=== PATIENT | male | born 1975 | race Caucasian/White ===

== ENCOUNTER 2023-05-13 06:57 | Outpatient (OUT) | payer OTHER, SELFPAY ==
--- NOTE | 2023-05-13 07:30 | NM_ITS ---
Patient: GEO CAPPS Exam Date: 05/13/2023 : 1975 Gender:M Ordering : DR Augustin Coronado . Admission #: [id number] Family : Order #: [id number] CLICK HERE TO VIEW EXAM RADIOLOGY REPORT PROCEDURE: NM KAILEE PERF SPECT REST STR COMPARISON: None. INDICATIONS: Chest pain TECHNIQUE: Exam Description: Stress Only two day protocol gated SPECT Rest Imagin.1 mCi Tc-99m Cardiolite IV on 05/17/2023 Stress Imaging 24.9 mCi Tc-99m Cardiolite IV on 05/13/2023 Exercise Protocol: 0.4 mg Lexiscan given IV Heart Rate (bpm): Rest: 58 Max: 122 PMHR: 70 Blood Pressure: Rest: 158/86 Max: 180/92 Symptoms: Rest and peak stress ECG findings were abnormal and the exercise portion of the study was abnormal per attending physician Dr. Armando . For more details please see separate cardiac stress test report. FINDINGS: QUALITY OF STUDY: Good. PERFUSION DEFECT: LOCATION: Mid-anterior. Apical anterior. [place]. SIZE: Medium (3-4 segments). SEVERITY: Severe. TYPE: Reversible. WALL MOTION: Normal. LV SIZE: Enlarged; EDV 190 mL. TID / TCD: None; 1.1 LVEF: Abnormal. Calculated EF 54%. SUMMARY: Myocardial perfusion imaging study has ABNORMAL findings. CONCLUSION: 1. Area of suspected reversible ischemia anterior wall/apex. LAD distribution 2. Dilated left ventricle 3. Low left ventricular ejection fraction of 54% 4. Abnormal exercise test 5. Follow up recommended Dictated by: Joe Huertas MD on 05/17/2023 at 12:36 Approved by: Joe Huertas MD on 05/17/2023 at 13:06
[2023-05-13] MEDS: REGADENOSON 0.4 MG/5 ML SYRINGE IV (08:17)
--- NOTE | 2023-05-13 13:56 | PM.STRESS ---
Stress Test Stress Test Allergies Allergy/AdvReac Type Severity Reaction Status Date / Time No Known Drug Allergies Allergy Verified 05/13/23 08:08 Requesting physician: Augustin Coronado Procedure: Lexiscan Cardiolite stress test General Information: Reason for Stress Test: Chest pain Cardiac History and Risk Factors: Hypertension, mother had unspecified congenital cardiovascular disease Resting 12 - Lead Electrocardiogram: Sinus bradycardia with rate 58. Normal axis. ST segment downsloping in III and aVF. Stress Test: Protocol: Initially began as exercise, but d/t patient fatigue and chest pain after 3 minutes on the treadmill, she voiced she could not proceed further, and was converted to Lexiscan protocol Blood Pressure Response: Resting 158/86, max 180/92 Rhythm: Max rate 122 which is 70 max [address] heart rate[address] - Response: During the resting period between the exercise and Lexiscan portions, there was new ST segment downsloping in II, and 0.5-1mm ST segment depression in V4-6. ST segment depression progressed to 2mm in V5 after Lexiscan. Patient Response: Chest pain and throat pain during exercise, relieved with rest. She additionally complained of chest pain 1 minute after Lexiscan injection. Interpretation: This is an abnormal stress test based on ST segment downsloping and depression (up to 2mm in V5) accompanied by chest pain during these periods. Cardiolite interpretation will be reported separately. Clinical correlation required.
== END 2023-05-13 06:58 ==
LOC: CARD 07:05
PROVIDERS: PCP Family Medicine; Visit Provider Family Medicine
DX: I10 Essential (primary) hypertension (principal); R07.9 Chest pain, unspecified; R94.39 Abnormal result of other cardiovascular function study
CPT/HCPCS: 78452; 93017; A9500; J2785

== ENCOUNTER 2023-05-14 08:57 | Outpatient (OUT) | payer OTHER, SELFPAY ==
--- NOTE | 2023-05-14 09:00 | CA_ITS ---
Patient: GEO CAPPS Exam Date: 05/14/2023 : 1975 Gender:M Ordering : DR Augustin Coronado . Admission #: [id number] Family : Order #: [id number] CLICK HERE TO VIEW EXAM ECHOCARDIOGRAM REPORT PROCEDURE: CA ECHO DOPPLER COMPLETE INDICATIONS: Chest pain, hypertension COMPARISON: None. DESCRIPTION: COMPLETE ECHOCARDIOGRAM Real-time transthoracic echocardiography with 2D, M-mode, spectral and color flow Doppler performed. QUALITY: Technical quality was good. LEFT VENTRICLE: Normal chamber size. Moderate concentric left ventricular hypertrophy. LV EF: Global left ventricular systolic function is difficult to assess but appears preserved; visually estimated ejection fraction is 55 to 60%. Unable to assess regional wall motion abnormalities. DIASTOLIC: Normal diastolic function. ATRIAL SEPTUM: Inadequately seen. LEFT ATRIUM: Mild dilatation. RIGHT ATRIUM: Mild dilatation. RIGHT VENTRICLE: Normal chamber size. Normal right ventricular systolic function. TRICUSPID VALVE: Normal mobility and thickness. No stenosis with no regurgitation. MITRAL VALVE: Normal mobility and thickness. No evidence of mitral valve stenosis. There is no mitral annular calcification. No mitral regurgitation. AORTIC VALVE: Normal trileaflet appearance. No visible sclerosis. Normal leaflet mobility. No evidence of aortic valve stenosis. No aortic regurgitation. AORTIC ROOT: Normal diameter and appearance. PULMONIC VALVE: Normal thickness and mobility. No stenosis. No regurgitation. PERICARDIUM: Anterior free space; trivial effusion versus fat pad. IVC: Collapses with inspirations. CONCLUSION: Global left ventricular systolic function is difficult to assess but appears preserved; visually estimated ejection fraction is 55 to 60%. Moderately increased left ventricular wall thickness. Biatrial enlargement. The right ventricle is normal in size and systolic function. Valves are poorly seen; no significant valve abnormalities. Anterior free space; trivial effusion versus fat pad. Adult Echocardiography Procedure Report Left Ventricle LVEDD (3.7 - 5.6 cm): 5.15 cm LVESD (2.2 - 4.0 cm): 3.67 cm LVIVS thickness (0.6 - 1.2 cm): 1.36 cm LVPW thickness (0.5 - 1.0 cm): 1.37 cm e': 0.14 m/s E - e': 7.60 LVOT Max Gradient: 4.28 mm[Hg], 6.80 mm[Hg] LVOT Area (cm2): 1.30 m/s, 1.03 m/s Peak Velocity (LVOT): 1.30 m/s, 1.03 m/s Mean Velocity (LVOT): 0.90 m/s LVOT Diameter 2.04 cm Left Atrium LA Volume Index (2D A2C): 34.39 ml/m2 Left Atrium Systolic Dimension: 4.01 cm Mitral Valve MV E to A Ratio: 1.33 Mitral Valve A-Wave Peak Velocity: 0.78 m/s Mitral Valve E-Wave Peak Velocity: 1.03 m/s Right Ventricle Aorta AO Root Diam: 3.18 cm Aortic Valve AoV Area (Peak Judd): 2.32 cm2, 2.32 cm2, 1.84 cm2, 1.84 cm2, 1.81 cm2, 1.81 cm2, 2.28 cm2, 2.28 cm2 AoV Area (VTI): 2.51 cm2, 2.51 cm2 Peak Velocity(Antegrade Flow): 1.84 m/s, 1.87 m/s Peak Gradient(Antegrade Flow): 14.06 mm[Hg], 13.53 mm[Hg] Mean Velocity(Antegrade Flow): 1.28 m/s Mean Gradient(Antegrade Flow): 7.31 mm[Hg] Velocity Time Integral: 40.35 cm Tricuspid Valve Pulmonic Valve Peak Velocity: 0.91 m/s Peak Gradient: 4.13 mm[Hg], 2.52 mm[Hg] Right Atrium Right Atrium Systolic Pressure: 66.81 ml, 66.81 ml Dictated by: Dayanna Guevara M.D. on 05/15/2023 at 16:34 Approved by: Dayanna Guevara M.D. on 05/15/2023 at 16:36
== END 2023-05-14 08:58 ==
LOC: CARD 08:57
PROVIDERS: PCP Family Medicine; Visit Provider Family Medicine
DX: R07.9 Chest pain, unspecified (principal); I10 Essential (primary) hypertension
CPT/HCPCS: 93306

== ENCOUNTER 2023-05-29 07:30 | Outpatient (OUT) | payer OTHER, SELFPAY ==
[2023-05-29 08:04] LABS: Basophils Percent Auto 0.3 % (0.2-2.0); Eosinophils Absolute Auto 0.2 10^3/uL (0.0-0.7); Eosinophils Percent Auto 2.2 % (0.9-7.0); Hematocrit 44.2 % (42.0-54.0); Hemoglobin 14.9 g/dL (14.0-18.0); Immature Granulocytes Abs Auto 0.06 10^3/uL (0.00-0.03); Immature Granulocytes Pct Auto 0.6 % (0.0-0.5); Lymphocytes Absolute Auto 3.4 10^3/uL (1.2-3.8); Mean Corpuscular HGB Conc 33.7 g/dL (29.9-35.2); Mean Corpuscular Volume 91.9 fL (80.0-94.0); Mean Platelet Volume 11.3 fL (9.5-13.5); Monocytes Absolute Auto 0.8 10^3/uL (0.3-0.8); Monocytes Percent Auto 8.1 % (1.7-12.0); Neutrophils Absolute Auto 5.8 10^3/uL (1.4-6.5); Neutrophils Percent Auto 55.8 % (43.0-75.0); Platelet Count 189 10^3/uL (150-450); Red Blood Count 4.81 10^6/uL (4.70-6.10); Red Cell Distribution Width 13.2 % (11.0-15.0); White Blood Count 10.4 10^3/uL (4.0-11.0)
[2023-05-29 09:37] LABS: Anion Gap 6.6; BUN Creatinine Ratio 18.2; Calcium 8.5 mg/dL (8.5-10.1); Carbon Dioxide 30.3 mmol/L (21.0-32.0); Chloride 104 mmol/L (98-107); Estimated GFR (African America >60 (>=60); Estimated GFR (Non-African Ame >60 (>=60); Glucose 113 mg/dL (74-106); Potassium 3.9 mmol/L (3.5-5.1); Sodium 137 mmol/L (136-145)
== END 2023-05-29 07:31 | disposition home or self-care (01) ==
LOC: LAB 07:32
PROVIDERS: PCP Family Medicine; Visit Provider Nurse Practitioner
DX: I20.0 Unstable angina (principal)
CPT/HCPCS: 36415; 80048; 85025

== ENCOUNTER 2023-06-11 07:04 | Outpatient (OUT) | payer OTHER, SELFPAY | END 2023-06-11 07:05 | disposition home or self-care (01) | PROVIDERS: PCP Family Medicine; Visit Provider Family Medicine | DX: G47.33 Obstructive sleep apnea (adult) (pediatric) (principal); I10 Essential (primary) hypertension | CPT/HCPCS: 95806 ==

== ENCOUNTER 2023-06-25 08:03 | Outpatient (OUT) | payer OTHER, SELFPAY ==
[2023-06-25 08:49] LABS: Anion Gap 10.6; BUN Creatinine Ratio 14.7; Calcium 8.6 mg/dL (8.5-10.1); Carbon Dioxide 27.4 mmol/L (21.0-32.0); Chloride 102 mmol/L (98-107); Estimated GFR (African America >60 (>=60); Estimated GFR (Non-African Ame >60 (>=60); Glucose 116 mg/dL (74-106); Sodium 136 mmol/L (136-145)
== END 2023-06-25 08:04 | disposition home or self-care (01) ==
PROVIDERS: PCP Family Medicine; Visit Provider Internal Medicine Cardiovascular Disease
DX: I11.9 Hypertensive heart disease without heart failure (principal)
CPT/HCPCS: 36415; 80048

== ENCOUNTER 2023-07-23 20:48 | Outpatient (OUT) | payer OTHER, SELFPAY | END 2023-07-23 20:49 | disposition home or self-care (01) | LOC: SLEEP 20:54 | PROVIDERS: PCP Family Medicine; Visit Provider Family Medicine | DX: G47.33 Obstructive sleep apnea (adult) (pediatric) (principal) | CPT/HCPCS: 95811 ==

== ENCOUNTER 2023-09-27 08:31 | Outpatient (OUT) | payer OTHER, SELFPAY ==
[2023-09-27 08:58] LABS: Basophils Percent Auto 0.1 % (0.2-2.0); Eosinophils Absolute Auto 0.4 10^3/uL (0.0-0.7); Eosinophils Percent Auto 4.7 % (0.9-7.0); Hematocrit 39.5 % (42.0-54.0); Hemoglobin 13.2 g/dL (14.0-18.0); Immature Granulocytes Abs Auto 0.03 10^3/uL (0.00-0.03); Immature Granulocytes Pct Auto 0.4 % (0.0-0.5); Lymphocytes Absolute Auto 2.7 10^3/uL (1.2-3.8); Lymphocytes Percent Auto 35.5 % (20.5-60.0); Mean Corpuscular HGB Conc 33.4 g/dL (29.9-35.2); Mean Corpuscular Hemoglobin 31.7 pg (25.9-34.0); Mean Platelet Volume 10.4 fL (9.5-13.5); Monocytes Absolute Auto 0.9 10^3/uL (0.3-0.8); Neutrophils Absolute Auto 3.5 10^3/uL (1.4-6.5); Neutrophils Percent Auto 47.3 % (43.0-75.0); Platelet Count 210 10^3/uL (150-450); Red Blood Count 4.16 10^6/uL (4.70-6.10); Red Cell Distribution Width 13.6 % (11.0-15.0); White Blood Count 7.5 10^3/uL (4.0-11.0)
[2023-09-27 10:05] LABS: Anion Gap 12.1; Calcium 8.3 mg/dL (8.5-10.1); Carbon Dioxide 28.3 mmol/L (21.0-32.0); Chloride 104 mmol/L (98-107); Estimated GFR (African America >60 (>=60); Estimated GFR (Non-African Ame >60 (>=60); Glucose 109 mg/dL (74-106); Potassium 4.4 mmol/L (3.5-5.1); Sodium 140 mmol/L (136-145)
== END 2023-09-27 08:32 | disposition home or self-care (01) ==
PROVIDERS: PCP Family Medicine; Visit Provider Nurse Practitioner
DX: I20.0 Unstable angina (principal)
CPT/HCPCS: 36415; 80048; 85025

== ENCOUNTER 2024-03-18 15:38 | Outpatient (OUT) | payer OTHER, SELFPAY ==
--- NOTE | 2024-03-18 15:42 | XR_ITS ---
The [address] [address] Patient Name: GEO CAPPS MRN: [id number] date: 1975 Sex: M Assigned Patient Location: [facility] Current Patient Location: Accession/Order Number: [id number] Exam Date: 03/18/2024 15:45 Report Date: 03/20/2024 04:41 At the request of: CINDI FATIMA Procedure: XR hand RT min 3V PROCEDURE: XR hand RT min 3V HISTORY: right hand pain M79.641 ; chronic pain at base of right thumb COMPARISON: None. FINDINGS: BONES:No acute fracture, dislocation, bone lesion. Mild narrowing of the first metacarpal phalangeal joint and the first carpal-metacarpal joint. Slight irregularity involving distal medial corner of the trapezoid bone which may represent sequela of remote trauma. Multifocal mild degenerative joint disease of the second through 5th digits, predominantly involving the metacarpophalangeal joints. SOFT TISSUES:No visible soft tissue swelling. EFFUSION:None visible. OTHER: Negative. XR/XR hand RT min 3V IMPRESSION: 1. Multifocal mild degenerative joint disease. 2. No acute abnormality or specific findings involving the thumb to account for patient's symptoms. Possibly mild posttraumatic changes involving the trapezoid. Electronically authenticated by: LALA ARNOLD Date: 03/20/2024 04:41
--- OUTSIDE RECORDS SUMMARY | 2024-03-18 15:57 | XMS_ITS | CCD ---
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 stabilized on long-term Anticoagulation therapy suggested INR?s ?Less Intensive Anticoagulation? 2.0 ? 3.0 Conventional Range 3.0 ? 4.5 Performed By: #### 2 460619, 4666684, 1447066, 0149267, 4998504, 8432780, 3057474, 90860034, 06573802 ####[facility] [address] [place] [address] PT Coag (PPP) [Time] 11.4 second(s) Normal 9.4-12.5 [facility] Comment on above: Result Comment: 15 d ays - 4 weeks 1 - 5 months 6 -11 months 1- 5 years 6-10 years 11 -17 years Mean: 11.2 (9.5-12.6) Mean: 11.0 (9.7-12.8) Mean: 11.0 (9.8-13.0) Mean: 11.3 (9.9-13.4) Mean: 11.7 (10.0-14.6) Mean: 11.8 (10.0 - 14.1) Pediatric Reference ranges were obtained from a study by Marek Levine et al. prepared from 1437 samples obtained at 7 different centers using the same coagulation reagent and instrumentation as [facility]. Currently there are no coagulation studies available worldwide for children to 14 days, and no normal ranges. Performed By: #### 2 716391, 3399767, 8364530, 4988911, 3971778, 4033107, 1665894, 43467473, 37523757 ####[facility] [address] [place] [address] Pre-Arrival Noteon 3 Pre-Arrival Note Pre-Arrival Summary Name: , Current Date: 08/24/2023 16:46:11 EDT Gender: Male Date of : Age: Pre-Arrival Type: EMS ETA: 08/24/2023 16:56:00 EDT Primary Care Physician: Presenting Problem: correction Pre-Arrival User: Gage Belcher Referring Source: Location: [place] Completion Date/Time: 08/24/2023 16:26:00 [facility] Emergency Department Pre-Hospital Report Form Vital Signs: Pre-Hospital Report: Treatment in Route: Response to Treatment: Misc. Issues: Normal [facility] Troponinon 08-24-2023 Troponin I.cardiac [Mass/Vol] 5.60 pg/mL Low 15.90-38.40 [facility] Comment on above: Result Comment: The 95% CI (Confidence Interval) PPV (Positive Predictive Value) for myocardial infarction in females is 38 pg/mL, in males 51 pg/mL. The results should be used in conjunction with clinical conditions of myocardial infarction. (Access High Sensitivity Troponin I Instructions For Use, Network, June 2018) Performed By: #### 2 678920, 3426516, 8163723, 6321807, 5630664, 6672005, 7058220, 18668383, 57144410 ####[facility] [address] [place] [address] Vaccinationson 08-24-2023 Vaccinations [id number]# 1.00CD:127 Normal [facility] XR Hand 3+ Views Righton XR Hand 3+ Views Right Exam Date/Time: 08/24/2023 17:30 EDT Reason for Exam: Pain, Traumatic Report IMPRESSION: NO DISPLACED FRACTURE OR POSTTRAUMATIC COMPLICATION IDENTIFIED. EXAM: XR Hand 3+ Views Right, XR Wrist 3+ Views Right DATE: 08/24/2023 CLINICAL HISTORY: Pain, Traumatic. COMPARISON: None available. TECHNIQUE: PA, lateral, and oblique radiographs of the right hand, and PA, lateral, oblique, and navicular radiographs of the right wrist were obtained. FINDINGS: There is no fracture, dislocation, worrisome bone destruction, radiodense foreign bodies, or other posttraumatic complication identified. Mild to moderate osteoarthritic changes are present, predominantly of the second and third MCP joints. Ordering Provider: Partha Rico FINAL REPORT Dictated: 08/24/2023 5:44 pm Ace Somers MD Signed (Electronic Signature): 08/24/2023 5:44 pm Signed by: Ace Somers MD Transcribed by: SHARONA Technologist: MORENITA Technical Comments Radiation Dose: Ka,r in mGy = na DAP = na Normal [facility] XR Wrist 3+ Views Righton XR Wrist 3+ Views Right Exam Date/Time: 08/24/2023 17:30 EDT Reason for Exam: Pain, Traumatic Report PLEASE SEE XR Hand 3+ Views Right REPORT DATED: 08/24/2023. Ordering Provider: Partha Rico FINAL REPORT Dictated: 08/24/2023 5:44 pm Ace Somers MD Signed (Electronic Signature): 08/24/2023 5:44 pm Signed by: Ace Somers MD Transcribed by: SHARONA Technologist: MORENITA Technical Comments Radiation Dose: Ka,r in mGy = na DAP = na Normal [facility] eGFRon 08-24-2023 GFR/1.73 sq M.predicted among non-blacks MDRD (S/P/Bld) [Vol rate/Area] 75 mL/min/1.73 m2 Normal >=59 [facility] Comment on above: Order Comment: Order added by Discern Expert. Result Comment: Baseball [employer] sherwin kidney disease could be indicated at eGFR's of less than 60 mL/min/1.73m2. Kidney failure is indicated at less than 15 mL/min/1.73m2. Performed By: #### 2 143015, 2049402, 6940089, 1363606, 8789692, 5765995, 4629747, 14536069, 09519589 ####[facility] [address] [place] [address] Office Visiton 08-16-2023 Follow-up visit [id number] Pepe Brum[place] 1975 [facility] Provider Department Center 08/16/2023 KAREN BARAHONA Family History Problem Relation Age of Onset Hypertension Father Heart attack Maternal Grandfather Family Status - Relation Status Age at Father Maternal Grandfather Level of Service:94325 MO OFFICE/OUTPATIENT ESTABLISHED MOD MDM 30-39 MIN Normal [facility] Office Visiton 07-05-2023 Follow-up visit [id number] Pepe Br[place] 1975 M Date Provider Department Center 07/05/2023 KAREN BARAHONA [facility] Family History Problem Relation Age of Onset Hypertension Father Heart attack Maternal Grandfather Family Status - Relation Status Age at Father Maternal Grandfather Level of Service:08456 MO OFFICE/OUTPATIENT ESTABLISHED MOD [facility] 30-39 MIN [facility] Office Visiton 06-14-2023 Follow-up visit [id number] Pepe Brumfield sandra Núñez 1975 M Date Provider Department Center 06/14/2023 KAREN BARAHONA Family History Problem Relation Age of Onset Hypertension Father Heart attack Maternal Grandfather Family Status - Relation Status Age at Father Maternal Grandfather Level of Service:33636 MO OFFICE/OUTPATIENT ESTABLISHED MOD MDM 30-39 MIN [facility] 36on 06-10-2023 36 Patient called in stating his BP has still been high since the medication change. Yesterday morning before his medication his BP was 193/120 after his medication his BP was 174/100. Patient is concerned and wants to know the next step to getting his BP under control [facility] Telephoneon 06-10-2023 Telephone [id number] Pepe Brum[place] sandra Núñez 1975 M Date Provider Department Center 06/10/2023 KAREN BARAHONA Family History Problem Relation Age of Onset Hypertension Father Heart attack Maternal Grandfather Family Status - Relation Status Age at Father Maternal Grandfather Reason for Visit and Comments: Hypertension [957505] [facility] 3606-06-2023 36 Patient called stating he doesn't feel well s/p PCI on Saturday. He was started on lasix, but was not sent home with it he said. Rx was sent into mail order pharmacy. I called in 14 day supply to [facility] so he could get it started. Said his chest is sore and his BP has been 160's-170's systolic. HR in the 60's-70's. Said he thought he would've felt better s/p PCI. I then spoke with Dr. Marcial who advises patient to increase carvedilol to 1.5 tablets (18.75mg) bid. He wants him to get started on the lasix. I confirmed with patient that he is taking aspirin and Plavix. Dr. Marcial said the stent he placed was very big so chest soreness is not uncommon. I did advise patient if his chest pain becomes sharp or a tightness, he is to go to the nearest ED. Patient verbalized understanding. He will increase carvedilol and continue to track his BP and HR. His follow up is scheduled on 07/05, and I asked him to call us before then if he needs anything. [facility] HPon 06-03-2023 HP H and P reviewed. No significant changes. Patient presenting with abnormal stress. Plan to proceed with cath. Procedure was explained to patient at length and in detail. Risks, benefits, and alternatives were discussed. Patient is informed that risks of this invasive procedure include, but are not limited to, bleeding, hematoma, kidney injury, CVA, arrythmia requiring defibrillation, need for emergent open heart surgery, and . Patient understands these risks and wishes to proceed. Karen Marcial MD [facility] NURSNOTEon 06-03-2023 NURSNOTE RN educated pt on d/ c instructions. RN encouraged pt to voice any questions or concerns. Pt verbalizes no questions or concerns at this time. Pt was wheeled off of unit with all of belongings. [facility] HPon 05-24-2023 HP New patient here to establish care. Ref from Dr. Coronado for abnormal stress test. Has chest pain and MOISE. Does not use cpap machine for his CAROL. LE edema resolves by morning. 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 Review of Systems Cardiovascular: Positive for chest pain, dyspnea on exertion and leg swelling. Musculoskeletal: Positive for arthritis, back pain, joint pain, myalgias and neck pain. Neurological: Positive for headaches. All other systems reviewed and are negative. [facility] Office Visiton 05-24-2023 Follow-up visit [id number] Pepe Brumfield 1975 M Date Provider Department Center 05/24/2023 Bari-KATHIE CORNEJO CARD [facility] Family History Problem Relation Age of Onset Hypertension Father Heart attack Maternal Grandfather Family Status - Relation Status Age at Father Maternal Grandfather Level of Service:57945 MO OFFICE/OUTPATIENT NEW MODERATE MDM 45-59 MINUTES Normal [facility] INSULINon 01-01-2023 Insulin 87.3 uIU/mL Critically high 2.6-24.9 [facility] Comment on above: Performed By: #### I NSULIN #### [facility] [address] [address] [address] Izabela Diamond CBC AUTO DIFFon 12-31-2022 BASO # 0.0 103/ul Normal 0.0-0.1 [facility] Comment on above: Performed By: #### C BC #### [facility] [address] [address] [address] Izabela Diamond Basophils/100 WBC (Bld) 0.2 % Normal 0.2-2.0 [facility] Comment on above: Performed By: #### C BC #### [facility] [address] [place] [address] Dr. Izabela Diamond EO # 0.3 103/ul Normal 0.0-0.7 [facility] Comment on above: Performed By: #### C BC #### [facility] [address] [address] [address] Izabela Diamond Eosinophils/100 WBC (Bld) 3.2 % Normal 0.9-7.0 [facility] Comment on above: Performed By: #### C BC #### [facility] [address] [place] [address] Dr. Izabela Diamond Erythrocyte distribution width (RBC) [Ratio] 13.5 % Normal 11.0-15.0 [facility] Comment on above: Performed By: #### C BC #### [facility] [address] [place] [address] Dr. Izabela Diamond Hematocrit (Bld) [Volume fraction] 48.1 % Normal 42.0-54.0 [facility] Comment on above: Performed By: #### C BC #### [facility] [address] [place] [address] Dr. Izabela Diamond Hemoglobin (Bld) [Mass/Vol] 15.4 g/dL Normal 14.0-18.[address] [facility] Comment on above: Performed By: #### C BC #### [facility] [address] [address] [address] Izabela Diamond IG # 0.05 10e3/ul Critically high 0.00-0.03 [facility] Comment on above: Performed By: #### C BC #### [facility] [address] [address] [address] Izabela Diamond IG % 0.6 % Critically high 0.0-0.5 [facility] Comment on above: Performed By: #### C BC #### [facility] [address] [address] [address] Izabela Diamond LYMPH # 3.0 103/ul Normal 1.2-3.8 [facility] Comment on above: Performed By: #### C BC #### [facility] [address] [place] [address] Dr. Izabela Diamond Lymphocytes/100 WBC (Bld) 34.1 % Normal 20.5-60.0 [facility] Comment on above: Performed By: #### C BC #### [facility] [address] [place] [address] Dr. Izabela Diamond MANUAL DIFF REQ NO Normal [facility] Comment on above: Performed By: #### C BC #### [facility] [address] [place] [address] Dr. Izabela Diamond MCH (RBC) [Entitic mass] 30.6 pg Normal 25.9-34.0 [facility] Comment on above: Performed By: #### C BC #### [facility] [address] [place] [address] Dr. Izabela Diamond MCHC (RBC) [Mass/Vol] 32.0 g/dL Normal 29.9-35.[address] [facility] Comment on above: Performed By: #### C BC #### [facility] [address] [place] [address] Dr. Izabela Diamond MCV (RBC) [Entitic vol] 95.6 fL Critically high 80.0-94.0 [facility] Comment on above: Performed By: #### C BC #### [facility] [address] [place] [address] Dr. Izabela Diamond MONO # 0.7 103/ul Normal 0.3-0.8 [facility] Comment on above: Performed By: #### C BC #### [facility] [address] [place] [address] Dr. Izabela Diamond Monocytes/100 WBC (Bld) 7.5 % Normal 1.7-12.0 [facility] Comment on above: Performed By: #### C BC #### [facility] [address] [place] [address] Dr. Izabela Diamond NEUT # 4.8 103/ul Normal 1.4-6.5 [facility] Comment on above: Performed By: #### C BC #### [facility] [address] [place] [address] Dr. Izabela Diamond Neutrophils/100 WBC (Bld) 54.4 % Normal 43.0-75.0 [facility] Comment on above: Performed By: #### C BC #### [facility] [address] [place] [address] Dr. Izabela Diamond Platelet mean volume (Bld) [Entitic vol] 10.5 fL Normal 9.5-13.5 [facility] Comment on above: Performed By: #### C BC #### [facility] [address] [place] [address] Dr. Izabela Diamond PLT 229 103/ul Normal 150-[address] [facility] Comment on above: Performed By: #### C BC #### [facility] [address] [place] [address] Dr. Izabela Diamond RBC 5.03 106/ul Normal 4.70-6.[address] [facility] Comment on above: Performed By: #### C BC #### [facility] [address] [place] [address] Dr. Izabela Diamond WBC 8.7 103/ul Normal 4.0-11.[address] [facility] Comment on above: Performed By: #### C BC #### [facility] [address] [place] [address] Dr. Izabela Diamond FREE THYROXINE INDEX T7on FTI 2.84 Normal 1.30-4.50 [facility] Comment on above: Performed By: #### T SH, T7, CMP, LIPID, URIC #### [facility] [address] [place] [address] Dr. Izabela Diamond T3U 35.0 % Normal 33.0-40.0 [facility] Comment on above: Performed By: #### T SH, T7, CMP, LIPID, URIC #### [facility] [address] [address] [address] Izabela Diamond T4 [Mass/Vol] 8.10 ug/dL Normal 4.50-12.10 [facility] Comment on above: Performed By: #### T SH, T7, CMP, LIPID, URIC #### [facility] [address] [place] [address] Dr. Izabela Diamond GLYCOHEMOGLOBIN A1Con 2022 ADA RECOMMENDATION SEE BELOW Normal [facility] Comment on above: Result Comment: ADA RECOMMENDED LIMIT 4.0 - 6.0 ADA THERAPEUTIC TARGET < 7.0 ACTION SUGGESTED > 7.0 Performed By: #### A 1C #### [facility] [address] [place] [address] Dr. Izabela Diamond Glucose [Mass/Vol] 134 mg/dL Normal [facility] Comment on above: Performed By: #### A 1C #### [facility] [address] [place] [address] Dr. Izabela Diamond HbA1c (Bld) [Mass fraction] 6.3 % Critically high 4.5-6.2 [facility] Comment on above: Performed By: #### A 1C #### [facility] [address] [place] [address] Dr. Izabela Diamond LIPID PROFILEon 12-31-2022 CHOL-HDL RATIO NORM SEE BELOW Normal [facility] Comment on above: Result Comment: 3.3 - 4.4 LOW RISK 4.4 - 7.1 AVERAGE RISK 7.1 - 11.0 MODERATE RISK >11.0 HIGH RISK Performed By: #### T SH, T7, CMP, LIPID, URIC #### [facility] [address] [address] [address] Izabela Diamond Cholesterol [Mass/Vol] 167 mg/dL Normal <=200 [facility] Comment on above: Performed By: #### T SH, T7, CMP, LIPID, URIC #### [facility] [address] [address] [address] Izabela Diamond Cholesterol in HDL [Mass/Vol] 32 mg/dL Critically low 40-60 [facility] Comment on above: Performed By: #### T SH, T7, CMP, LIPID, URIC #### [facility] [address] [address] [address] Izabela Diamond Cholesterol in LDL [Mass/Vol] 108.4 mg/dL Normal [facility] Health Comment on above: Performed By: #### T SH, T7, CMP, LIPID, URIC #### [facility] [address] [address] [address] Izabela Diamond Cholesterol.total/Chol esterol in HDL [Mass ratio] 5.2 {ratio} Normal [facility] Comment on above: Performed By: #### T SH, T7, CMP, LIPID, URIC #### [facility] [address] [address] [address] Izabela Diamond HDL NORMAL > or = 60 mg/dl - LO W CARDIOVASCULAR RISK <40 mg/dl - HIGH CARDIOVASCULAR RISK Normal [facility] Comment on above: Performed By: #### T SH, T7, CMP, LIPID, URIC #### [facility] [address] [address] [address] Izabela Diamond LDL CALC NORMAL SEE BELOW Normal [facility] Comment on above: Result Comment: <100 mg/dl OPTIMAL 100 - 129 mg/dl NEAR OR ABOVE OPTIMAL 130 - 159 mg/dl BORDERLINE HIGH 160 - 189 mg/dl HIGH >190 mg/dl VERY HIGH Performed By: #### T SH, T7, CMP, LIPID, URIC #### [facility] [address] [address] [address] Izabela Diamond Triglyceride [Mass/Vol] 133 mg/dL Normal <=150 [facility] Comment on above: Performed By: #### T SH, T7, CMP, LIPID, URIC #### [facility] [address] [address] [address] Izabela Diamond VLDL CALC 26.6 mg/dL Normal [facility] Comment on above: Performed By: #### T SH, T7, CMP, LIPID, URIC #### [facility] [address] [place] [address] Dr. Izabela Diamond PROF 14(COMP METB)on 023 Albumin [Mass/Vol] 3.4 g/dL Normal 3.4-5.0 [facility] Comment on above: Performed By: #### T SH, T7, CMP, LIPID, URIC #### [facility] [address] [place] [address] Dr. Izabela Diamond Albumin/Globulin [Mass ratio] 0.8 {ratio} Normal [facility] Comment on above: Performed By: #### T SH, T7, CMP, LIPID, URIC #### [facility] [address] [place] [address] Dr. Izabela Diamond ALP [Catalytic activity/Vol] 77 U/L Normal 46-116 [facility] Comment on above: Performed By: #### T SH, T7, CMP, LIPID, URIC #### [facility] [address] [place] [address] Dr. Izabela Diamond ALT [Catalytic activity/Vol] 39 U/L Normal 16-63 [facility] Comment on above: Performed By: #### T SH, T7, CMP, LIPID, URIC #### [facility] [address] [place] [address] Dr. Izabela Diamond Anion gap [Moles/Vol] 12.1 mmol/L Normal [facility] Comment on above: Performed By: #### T SH, T7, CMP, LIPID, URIC #### [facility] [address] [place] [address] Dr. Izabela Diamond AST [Catalytic activity/Vol] 23 U/L Normal 15-37 [facility] Comment on above: Performed By: #### T SH, T7, CMP, LIPID, URIC #### [facility] [address] [place] [address] Dr. Izabela Diamond Bilirubin [Mass/Vol] 0.5 mg/dL Normal 0.2-1.0 [facility] Comment on above: Performed By: #### T SH, T7, CMP, LIPID, URIC #### [facility] [address] [place] [address] Dr. Izabela Diamond Calcium [Mass/Vol] 8.5 mg/dL Normal 8.5-10.1 [facility] Comment on above: Performed By: #### T SH, T7, CMP, LIPID, URIC #### [facility] [address] [place] [address] Dr. Izabela Diamond Chloride [Moles/Vol] 103 mmol/L Normal 98-107 [facility] Comment on above: Performed By: #### T SH, T7, CMP, LIPID, URIC #### [facility] [address] [place] [address] Dr. Izabela Diamond CO2 [Moles/Vol] 27.8 mmol/L Normal 21.0-32.0 [facility] Comment on above: Performed By: #### T SH, T7, CMP, LIPID, URIC #### [facility] [address] [place] [address] Dr. Izabela Diamond Creatinine [Mass/Vol] 0.93 mg/dL Normal 0.70-1.30 [facility] Comment on above: Performed By: #### T SH, T7, CMP, LIPID, URIC #### [facility] [address] [place] [address] Dr. Izabela Diamond EGFR-AF NICARAGUAN >60 Normal >=60 [facility] Comment on above: Performed By: #### T SH, T7, CMP, LIPID, URIC #### [facility] [address] [place] [address] Dr. Izabela Diamond EGFR-NON AF NICARAGUAN >60 Normal >=60 [facility] Comment on above: Performed By: #### T SH, T7, CMP, LIPID, URIC #### [facility] [address] [place] [address] Dr. Izabela Diamond Globulin (S) [Mass/Vol] 4.3 g/dL Normal [facility] Comment on above: Performed By: #### T SH, T7, CMP, LIPID, URIC #### [facility] [address] [place] [address] Dr. Izabela Diamond Glucose [Mass/Vol] 131 mg/dL Critically high 74-106 [facility] Comment on above: Performed By: #### T SH, T7, CMP, LIPID, URIC #### [facility] [address] [place] [address] Dr. Izabela Diamond Potassium [Moles/Vol] 3.9 mmol/L Normal 3.5-5.1 [facility] Comment on above: Performed By: #### T SH, T7, CMP, LIPID, URIC #### [facility] [address] [place] [address] Dr. Izabela Diamond Protein [Mass/Vol] 7.7 g/dL Normal 6.4-8.2 [facility] Comment on above: Performed By: #### T SH, T7, CMP, LIPID, URIC #### [facility] [address] [place] [address] Dr. Izabela Diamond Sodium [Moles/Vol] 139 mmol/L Normal 136-145 [facility] Comment on above: Performed By: #### T SH, T7, CMP, LIPID, URIC #### [facility] [address] [place] [address] Dr. Izabela Diamond Urea nitrogen [Mass/Vol] 13.0 mg/dL Normal 7.0-18.[address] [facility] Comment on above: Performed By: #### T SH, T7, CMP, LIPID, URIC #### [facility] [address] [place] [address] Dr. Izabela Diamond Urea nitrogen/Creatinine [Mass ratio] 14.0 mg/mg Normal [facility] Comment on above: Performed By: #### T SH, T7, CMP, LIPID, URIC #### [facility] [address] [place] [address] Dr. Izabela Diamond TSHon 12-31-2022 TSH 2.011 uIU/mL Normal 0.358-3.740 [facility] Comment on above: Performed By: #### T SH, T7, CMP, LIPID, URIC #### [facility] [address] [place] [address] [id number] [address] Izabela Diamond URIC ACID SERUMon 12-31-2022 Urate [Mass/Vol] 5.5 mg/dL Normal 3.5-7.2 [facility] Comment on above: Performed By: #### T SH, T7, CMP, LIPID, URIC #### [facility] [address], [place] [address] Dr. Izabela Diamond Vital Signs Date Time Vital Sign Value Performing Clinician Faci lity 08-24-2023 18:00-0400 Diastolic blood pressure 94 mm[Hg] Partha Tidwelle [facility] 08-24-2023 18:00-0400 Heart rate 80 /min Partha Tidwelle [facility] 08-24-2023 18:00-0400 Mean blood pressure 130 mm[Hg] Partha Tidwelle [facility] 08-24-2023 18:00-0400 Respiratory rate 16 /min Partha Tidwelle [facility] 08-24-2023 18:00-0400 SaO2% (BldA) [Mass fraction] 100 % Partha Tidwelle [facility] 08-24-2023 18:00-0400 Systolic blood pressure 201 mm[Hg] Partha Tidwelle [facility] 08-24-2023 17:03-0400 Body temperature 98.06 [degF] Partha Tidwelle [facility] 08-24-2023 17:03-0400 Diastolic blood pressure 99 mm[Hg] Partha Tidwelle [facility] 08-24-2023 17:03-0400 Heart rate 87 /min Partha Tidwelle [facility] 08-24-2023 17:03-0400 Respiratory rate 20 /min Partha Tidwelle [facility] 08-24-2023 17:03-0400 SaO2% (BldA) [Mass fraction] 98 % Partha Jacky [facility] 08-24-2023 17:03-0400 Systolic blood pressure 179 mm[Hg] Partha Jacky [facility] 08-24-2023 17:00-0400 Diastolic blood pressure 87 mm[Hg] Partha Jacky [facility] 08-24-2023 17:00-0400 Heart rate 86 /min Partha Jacky [facility] 08-24-2023 17:00-0400 Mean blood pressure 107 mm[Hg] Partha Jacky [facility] 08-24-2023 17:00-0400 SaO2% (BldA) [Mass fraction] 99 % Partha Jacky [facility] 08-24-2023 17:00-0400 Systolic blood pressure 146 mm[Hg] Partha Jacky [facility] 08-24-2023 16:48-0400 Body temperature 98.24 [degF] Partha Jacky [facility] 08-24-2023 16:48-0400 Heart rate 81 /min Partha Jacky [facility] 08-24-2023 16:48-0400 Respiratory rate 18 /min Partha Tidwelle [facility] Encounters Encounter Date Encounter Type Care Provider Facility Start: 01-03-2024 End: [facility] Start: 11-22-2023 End: 11-22-[address] [facility] Start: 10-03-2023 Evaluation and management of inpatient [facility] Start: 10-03-2023 ambulatory [facility] Start: 10-03-2023 End: 10-04-2023 [facility]: 08-24-2023 End: 08-24-2023 Emergency department patient visit Partha Rico Facility:[facility] Start: 08-24-2023 End: 08-24-2023 Emergency department patient visit Partha Rico [facility] Start: 08-16-2023 End: 08-19-[address] [facility] Start: 07-05-2023 End: 07-05-[address] [facility] Start: 06-14-2023 End: 06-14-[address] [facility] Start: 06-03-2023 ambulatory [facility] Start: 06-03-2023 End: 06-03-[address] [facility] Start: 05-24-2023 End: 05-24-2023 ambulatory KATHIE CORNEJO [facility] Start: 01-01-2023 Encounter for genera l adult medical examination without abnormal findings DR CINDI CORONADO [facility] Start: 12-31-2022 End: 01-01-[address] CINDI CORONADO Facility:[facility] Start: 12-31-2022 End: 01-01-2023 Encounter for general adult medical examination without abnormal findings DR CINDI CORONADO Facility:[facility] Start: 06-19-[address] RENUKA Tang ty:[facility] Start: 06-15-[address] RENUKA [facility] Procedures Date Procedure Procedure Detail Performing Clinician Start: 12-31-[address] RENUKA SARGENT Comment on above: Performed By: #### [facility] #### [facility] [address] [address] [address] Izabela Diamond None (qualifier value) Partha Rico Immunizations Immunization Date Immunization Notes Care Provider Fa gumety 08-24-2023 tetanus toxoid, redu salud diphtheria toxoid, and acellular pertussis vaccine, adsorbed Partha Rico [facility] Comment on above: Early/Late Reason: E olga lidia/Late Reason: Nursing Judgment Payers Date Payer Category Payer Unknown [id number] 1975 Unknown [id number] [id number] [id number] 1975 Unknown [id number] 2.16.84 [id number] 1975 Unknown [id number] [id number] [id number] 1975 Unknown [id number] [id number] 1959 Private Health Insurance [id number] Social History Date Type Detail Facility Start: 07-06-2020 Tobacco smoking status Never s moked tobacco (finding) [facility] Sex Assigned At Male [facility] Functional Status Date Assessment Result Facility 08-24-2023 Functional Status N/A [facility] Clinical Notes 05-24-2023 to 01-03-2024 Note Date & Type Note Facility 01-03-2024 Note [facility] CARDIOLOGY PROGR ESS NOTE HPI: Ehsan Brumfield is a 48 y.o. male with a past medical history including HTN, HLD, CAROL, and CAD s/p PCI of OM1 and PCI of LAD. He presents today for follow up. Overall, patient is doing well. He states that his blood pressure can fluctuate depending on what time his takes his medications. When his blood pressure is low, he feels tired and dizzy. He has been checking his blood pressure more frequently, including prior to taking his medications, and is adjusting the dose of the carvedilol based on what his blood pressure is. He denies any shortness of breath. She denies any chest pain. Denies any lower extremity LEWIS, orthopnea, paroxysmal nocturnal dyspnea. PMH: HTN uncontrolled, HPL, CAROL, obesity PSH: no pertinent cardiac FMH: Mother DM and HTN- r/t biliary CA, Father r/t renal cell CA, Sister DM Social: never a smoker, Alcohol-beer- 6 beers on weekends, Illicit drug use- denied ROS 10 point ROS is performed and is negative unless otherwise specified in HPI Visit Vitals BP 134/84 (BP Location: Right arm, Patient Position: Standing) Pulse 79 Ht 1.753 m (5' 9 ) Wt (!) 153 kg (338 lb) SpO2 97% BMI 49.91 kg/m??? Smoking Status Never BSA 2.73 m??? No Known Allergies Medications: Current Outpatient Medications on File Prior to Visit Medication Sig Dispense Refill aspirin 81 mg EC tablet Take 81 mg by mouth in the morning. atorvastatin (Lipitor) 80 mg tablet Take 1 tablet (80 mg) by mouth in the morning. (Patient taking differently: Take 80 mg by mouth at bedtime.) 30 tablet 11 carvedilol (Coreg) 12.5 mg tablet Take 1 tablet in the morning, and take 1.5 tablets in the evening 270 tablet 3 celecoxib (CeleBREX) 100 mg capsule 1 (one) time each day at the same time. cloNIDine (Catapres) 0.2 mg tablet Take 0.2 mg by mouth at bedtime. furosemide (Lasix) 40 mg tablet Take 1 tablet (40 mg) by mouth in the morning. 90 tablet 3 irbesartan (Avapro) 300 mg tablet Take 1 tablet (300 mg) by mouth once daily as directed. 90 tablet 3 isosorbide mononitrate ER (Imdur) 30 mg 24 hr tablet Take 30 mg by mouth in the morning and at bedtime. levothyroxine (Synthroid, Levoxyl) 100 mcg tablet Take 100 mcg by mouth in the morning. nitroglycerin (Nitrostat) 0.[address] 0.4 mg under the tongue every 5 (five) minutes if needed for chest pain. spironolactone (Aldactone) 25 mg tablet Take 1 tablet (25 mg) by mouth in the morning. 90 tablet 3 ticagrelor (Brilinta) 90 mg tablet Take 1 tablet (90 mg) by mouth in the morning and at bedtime. 180 tablet 3 [DISCONTINUED] pantoprazole (ProtoNix) 40 mg EC tablet Take 1 tablet (40 mg) by mouth before breakfast. Do not crush, chew, or split. 30 tablet 2 sildenafil (Viagra) 100 mg tablet 1 (one) time each day at the same time. No current facility-administered medications on file prior to visit. Physical Exam: Constitutional: Appearance: Normal appearance. Without apparent distress, obese HENT: Head: Normocephalic and atraumatic. Nose: Nose normal. Mouth/Throat: Mouth: Mucous membranes are moist. Eyes: Extraocular Movements: Extraocular movements intact. Conjunctiva/sclera: Conjunctivae normal. Neck: Vascular: No JVD. Cardiovascular: Rate and Rhythm: Normal rate and regular rhythm. Pulses: Dorsalis pedis pulses are 3 on the right side and 3on the left side. Posterior tibial pulses are 3 on the right side and 3 on the left side. Heart sounds: Normal heart sounds, S1 normal and S2 normal. Pulmonary: Effort: Pulmonary effort is normal. Breath sounds: Normal breath sounds. Abdominal: General: Bowel sounds are normal. Palpations: Abdomen is soft. Musculoskeletal: General: Normal range of motion. Cervical back: Normal range of motion. Right lower leg: Trace edema. Left lower leg: Trace edema. Skin: General: Skin is warm and dry. Capillary Refill: Capillary refill takes less than 2 seconds. Neurological: General: No focal deficit present. Mental Status: alert and oriented to person, place, and time. Psychiatric: Mood and Affect: Mood normal. Behavior: Behavior normal. Thought Content: Thought content normal. Judgment: Judgment normal. Labs: CBC normal Renal and liver function normal Chol - LDL is elevated A1c is elevated Last lab values have been reviewed CV Testing: EKG PCP office- Sinus bradycardia with sinus arrhythmia- LVH, ST-T wave abnormalities Stress test 05/14/23 Echo Cardiac catheterization Cardiac Cath Report 10/03/2023 Performing Physicians: -Karen Marcial MD Assistants: Dr Candy Rolon. Procedures Performed: -Selective coronary angiography of left coronary system -Limited femoral angiography -PCI of proximal to mid LAD using balloon angioplasty and NA placement -Ultrasound-guided vascular access -Conscious sedation Final Impressions: -70 to 80% stenosis at the ostium of the LAD, followed by 70% st (more content not included)... [facility] 01-03-2024 Note Patient here c/o michelle vated BP lately. Sometimes doesn't take the entire 18.75mg of carvedilol in the evenings if his BP is normal . Sometimes will only take 12.5mg in the evenings. He's taking clonidine once daily, instead of twice. Feels like shit when BP is low AND elevated. [facility] 11-22-2023 Note [facility] CARDIOLOGY PROGR ESS NOTE HPI: Ehsan Brumfield is a 48 y.o. male with a past medical history including HTN, HLD, CAROL, and CAD s/p PCI of OM1 and PCI of LAD. He presents today for follow up. Patient is doing well. He states that his chest pain has resolved. Patient adamantly denies any cardiac complaints or concerns. Patient denies any chest pain or shortness of breath. Patient denies any lower extremity edema, orthopnea, or proximal nocturnal dyspnea. No near-syncope or syncope. No dizziness or lightheadedness. PMH: HTN uncontrolled, HPL, CAROL, obesity PSH: no pertinent cardiac FMH: Mother DM and HTN- r/t biliary CA, Father r/t renal cell CA, Sister DM Social: never a smoker, Alcohol-beer- 6 beers on weekends, Illicit drug use- denied ROS 10 point ROS is performed and is negative unless otherwise specified in HPI Visit Vitals BP 131/74 (BP Location: Left wrist, Patient Position: Sitting) Pulse 77 Ht 1.753 m (5' 9 ) Wt (!) 150 kg (331 lb) SpO2 96% BMI 48.88 kg/m??? Smoking Status Never BSA 2.7 m??? No Known Allergies Medications: Current Outpatient Medications on File Prior to Visit Medication Sig Dispense Refill aspirin 81 mg EC tablet Take 81 mg by mouth in the morning. atorvastatin (Lipitor) 80 mg tablet Take 1 tablet (80 mg) by mouth in the morning. 30 tablet 11 celecoxib (CeleBREX) 100 mg capsule 1 (one) time each day at the same time. cloNIDine (Catapres) 0.2 mg tablet Take 0.2 mg by mouth in the morning and at bedtime. furosemide (Lasix) 40 mg tablet Take 1 tablet (40 mg) by mouth in the morning. 90 tablet 3 isosorbide mononitrate ER (Imdur) 30 mg 24 hr tablet Take 60 mg by mouth in the morning and at bedtime. levothyroxine (Synthroid, Levoxyl) 100 mcg tablet Take 100 mcg by mouth in the morning. nitroglycerin (Nitrostat) 0.[address] 0.4 mg under the tongue every 5 (five) minutes if needed for chest pain. pantoprazole (ProtoNix) 40 mg EC tablet Take 1 tablet (40 mg) by mouth before breakfast. Do not crush, chew, or split. 30 tablet 2 sildenafil (Viagra) 100 mg tablet 1 (one) time each day at the same time. spironolactone (Aldactone) 25 mg tablet Take 1 tablet (25 mg) by mouth in the morning. 90 tablet 3 ticagrelor (Brilinta) 90 mg tablet Take 1 tablet (90 mg) by mouth in the morning and at bedtime. 180 tablet 3 No current facility-administered medications on file prior to visit. Physical Exam: Constitutional: Appearance: Normal appearance. Without apparent distress, obese HENT: Head: Normocephalic and atraumatic. Nose: Nose normal. Mouth/Throat: Mouth: Mucous membranes are moist. Eyes: Extraocular Movements: Extraocular movements intact. Conjunctiva/sclera: Conjunctivae normal. Neck: Vascular: No JVD. Cardiovascular: Rate and Rhythm: Normal rate and regular rhythm. Pulses: Dorsalis pedis pulses are 3 on the right side and 3on the left side. Posterior tibial pulses are 3 on the right side and 3 on the left side. Heart sounds: Normal heart sounds, S1 normal and S2 normal. Pulmonary: Effort: Pulmonary effort is normal. Breath sounds: Normal breath sounds. Abdominal: General: Bowel sounds are normal. Palpations: Abdomen is soft. Musculoskeletal: General: Normal range of motion. Cervical back: Normal range of motion. Right lower leg: Trace edema. Left lower leg: Trace edema. Skin: General: Skin is warm and dry. Capillary Refill: Capillary refill takes less than 2 seconds. Neurological: General: No focal deficit present. Mental Status: alert and oriented to person, place, and time. Psychiatric: Mood and Affect: Mood normal. Behavior: Behavior normal. Thought Content: Thought content normal. Judgment: Judgment normal. Labs: CBC normal Renal and liver function normal Chol - LDL is elevated A1c is elevated Last lab values have been reviewed CV Testing: EKG PCP office- Sinus bradycardia with sinus arrhythmia- LVH, ST-T wave abnormalities Stress test 05/14/23 Echo Cardiac catheterization Cardiac Cath Report 10/03/2023 Performing Physicians: -Karen Marcial MD Assistants: Dr Candy Rolon. Procedures Performed: -Selective coronary angiography of left coronary system -Limited femoral angiography -PCI of proximal to mid LAD using balloon angioplasty and NA placement -Ultrasound-guided vascular access -Conscious sedation Final Impressions: -70 to 80% stenosis at the ostium of the LAD, followed by 70% stenosis in the mid LAD, 99% stenosis in the mid LAD, and tandem 80 to 90% stenosis in the mid to distal LAD. These were successfully reduced to 0% stenosis following balloon angioplasty and drug-eluting stent placement in the proximal and mid to distal LAD. -Previously placed stent in mid OM1 vessel is widely patent. The OM1 bifurcates into an upper and lower branch distally. There is Moderate to severe stenosis at the ostium of the upper branch. (more content not included)... [facility] 11-22-2023 Note Patient here for fol low up PCI LAD. He was switched from Plavix to Brilinta. Chest pain has resolved. [facility] 10-04-2023 Note Attestation signed by Karen Marcial MD at 10/15/2023 8:28 AM I personally saw and examined the patient on the same date of service as the resident. I discussed the findings and therapeutic plan with the resident/fellow. Plan of care was discussed with patient, and patient is agreeable with plan. I agree with the documentation, except for any edits/updates below. Teaching Physician's Revisions: none Karen Marcial MD [place] [facility] Card[facility] Progress Note Subjective Subjective: Ehsan Brumfield is doing well, he reports complete resolution of his chest discomfort, denies any pain, SOB, palpitation or dizziness. He walked around the room without exertional chest discomfort or SOB. Eager to go home. Objective Objective: Patient Vitals for the past 24 hrs: BP Temp Temp src Pulse Resp SpO2 Height Weight 10/04/23 0740 120/84 36.8 ???C (98.2 ???F) Temporal 75 19 100 % -- -- 10/04/23 0435 109/66 -- -- 74 16 99 % -- -- 10/04/23 0000 103/63 -- -- 75 19 99 % -- -- 10/03/232021 -- -- -- -- -- 99 % -- -- 10/03/23 2000 132/86 36.9 ???C (98.4 ???F) Temporal 82 22 99 % -- -- 10/03/23 1700 124/72 -- -- 70 22 97 % -- -- 10/03/23 1600 (!) 142/93 -- -- 74 13 100 % -- -- 10/03/23 1500 143/85 -- -- 72 15 100 % -- -- 10/03/23 1400 135/82 -- -- 70 19 100 % -- -- 10/03/23 1330 125/78 -- -- 67 22 99 % -- -- 10/03/23 1300 135/83 -- -- 71 20 100 % -- -- 10/03/23 1230 134/85 -- -- 79 17 100 % -- -- 10/03/23 1200 136/79 -- -- 68 10 100 % -- -- 10/03/23 1155 -- -- -- -- -- -- 1.75 m (5' 8.9 ) (!) 150 kg (330 lb 11 oz) 10/03/23 1145 131/90 -- -- 76 25 100 % -- -- 10/03/23 1140 140/89 36 ???C (96.8 ???F) Temporal 72 16 99 % -- -- Physical Examination: GENERAL: AOx3, in no acute distress. HEAD: Atraumatic, normocephalic. EYES: GOLDY, EOMI. NECK: No JVD present. CARDIAC: RRR. No murmur, rubs, or gallops. RESPIRATORY: CTAB, no increased effort of breathing. ABDOMEN: Soft, nontender, nondistended. EXTREMITIES: No lower extremity edema, peripheral pulses are 2+ bilaterally. NEURO: No focal deficits Relevant Lab Results Encounter Date: 10/03/23 ECG 12 lead Result Value Ventricular Rate 70 Atrial Rate 70 MO Interval 170 QRS DURATION 124 QT Interval 420 QTC CALCULATION(BAZETT) 453 P [place] 15 R-[place] 14 T Wave [place] 38 Impression Normal sinus rhythm Intra-ventricular conduction delay Borderline ECG When compared with ECG of 03-OCT-2023 11:22, (unconfirmed) No significant change was found Confirmed by Antoine BASS, L.S. (2) on 10/03/2023 2:17:24 PM No results found for: CKTOTAL, CKMB, CKMBINDEX, TROPONINI No echocardiogram results found for the past 12 months No nuclear medicine results found for the past 12 months Relevant Imaging Results Cardiac catheterization Cardiac Cath Report 10/03/2023 Performing Physicians: -Karen Marcial MD Assistants: Dr Candy Rolon. Procedures Performed: -Selective coronary angiography of left coronary system -Limited femoral angiography -PCI of proximal to mid LAD using balloon angioplasty and NA placement -Ultrasound-guided vascular access -Conscious sedation Final Impressions: -70 to 80% stenosis at the ostium of the LAD, followed by 70% stenosis in the mid LAD, 99% stenosis in the mid LAD, and tandem 80 to 90% stenosis in the mid to distal LAD. These were successfully reduced to 0% stenosis following balloon angioplasty and drug-eluting stent placement in the proximal and mid to distal LAD. -Previously placed stent in mid OM1 vessel is widely patent. The OM1 bifurcates into an upper and lower branch distally. There is Moderate to severe stenosis at the ostium of the upper branch. This is a small vessel and is not amenable to PCI Recommendations: -We will admit patient for overnight observation following complex PCI procedure -DAPT for at least 1 year, preferably longer if tolerated due to large amount of stent material, followed by aspirin 81 mg daily indefinitely. High intensity statin therapy -Patient is currently on Plavix. We will discontinue Plavix and start Brilinta as second antiplatelet. Patient counseled repeatedly on the importance of medication compliance and DAPT therapy. He voices understanding -Optimization of medical management -Aggressive risk factor modification -Follow up with Cardiology as scheduled Procedure In Detail: After risks, benefits, and alternatives were explained to patient, written informed consent was obtained. The patient was prepped and draped in usual sterile fashion. Using 1% lidocaine solution, local infiltration anesthesia was achieved over the right femoral artery. Using a micropuncture kit, access to this artery was obtained. A 6 FR x 11 cm sheath was then placed over a wire. [facility] (more content not included)... [facility] 10-04-2023 Note Hospital Medicine Discharge Summary Final Discharge Diagnosis: Coronary artery disease due to lipid rich plaque Admission Diagnosis: Coronary artery disease due to lipid rich plaque [I25.10, I25.83] Coronary artery disease due to calcified coronary lesion [I25.10, I25.84] Hospital course: 48 y.o. male with a past medical history of hypertension, hyperlipidemia, CAD status post stenting to the OM. He presents today for staged PCI of the LAD. Most recent cardiac cath was in April 2023 where he had PCI of 90% stenosed OM1. It has moderately diffuse LAD disease. He still continues to have symptoms and therefore PCI of the LAD was recommended. Currently he denies any chest pain, dyspnea, palpitations, orthopnea. # UA s/p PCI to LAD: - Discharged on aspirin, Brilina, Coreg and Lipitor. - Follow up with Cardio. # HTN: - Continue Coreg, irbesartan and clonidine. # Chronic diastolic CHF: - Continue Lasix and spirolactone. Dear Dr. Cliff MD, Ehsan is advised to follow up with you within 1-2 weeks. Follow-up with: Cardiology Scheduled appointments: Future Appointments Date Time Provider Department Center 11/22/2023 10:40 AM Karen Marcial MD [facility] Your medication list START taking these medications Instructions Last Dose Given Next Dose Due pantoprazole 40 mg EC tablet Commonly known as: ProtoNix Take 1 tablet (40 mg) by mouth before breakfast. Do not crush, chew, or split. ticagrelor 90 mg tablet Commonly known as: Brilinta Take 1 tablet (90 mg) by mouth in the morning and at bedtime. CHANGE how you take these medications Instructions Last Dose Given Next Dose Due carvedilol 12.5 mg tablet Commonly known as: Coreg What changed: how much to take how to take this when to take this additional instructions Another medication with the same name was removed. Continue taking this medication, and follow the directions you see here. Taking 12.5mg in the AM, and 18.75mg in the PM CONTINUE taking these medications Instructions Last Dose Given Next Dose Due aspirin 81 mg EC tablet atorvastatin 80 mg tablet Commonly known as: Lipitor Take 1 tablet (80 mg) by mouth in the morning. CeleBREX 100 mg capsule Generic drug: celecoxib cloNIDine 0.2 mg tablet Commonly known as: Catapres furosemide 40 mg tablet Commonly known as: Lasix Take 1 tablet (40 mg) by mouth in the morning. irbesartan 300 mg tablet Commonly known as: Avapro isosorbide mononitrate ER 30 mg 24 hr tablet Commonly known as: Imdur levothyroxine 100 mcg tablet Commonly known as: Synthroid, Levoxyl spironolactone 25 mg tablet Commonly known as: Aldactone Take 1 tablet (25 mg) by mouth in the morning. Viagra 100 mg tablet Generic drug: sildenafil STOP taking these medications clopidogrel 75 mg tablet Commonly known as: Plavix nitroglycerin 0.3 mg SL tablet Commonly known as: Nitrostat Where to Get Your Medications These medications were sent to [facility]/pharmacy #[id number] AT [address] OF [address] [address] pantoprazole 40 mg EC tablet ticagrelor 90 mg tablet Information about where to get these medications is not yet available Ask your nurse or doctor about these medications carvedilol 12.5 mg tablet Ehsan has No Known Allergies. Disposition: Home or Self Care Discharge Condition: Stable Code Status: Full Code Diagnostic Results Hematology: Results from last 7 days Lab Units 10/04/23 0437 WBC AUTO 10*3/uL 11.71* HEMOGLOBIN g/dL 11.9* HEMATOCRIT % 35.9* MCV fL 93.7 PLATELETS AUTO 10*3/uL 257 Chemistry: Results from last 7 days Lab Units 10/04/23 0437 SODIUM mmol/L 137 POTASSIUM mmol/L 4.0 CHLORIDE mmol/L 107 CO2 mmol/L 23 BUN mg/dL 18 CREATININE mg/dL 1.02 GLUCOSE mg/dL 113* CALCIUM mg/dL 8.8 Results from last 7 days Lab Units 10/04/23 0437 AST U/L 16 ALT U/L 17 ALK PHOS U/L 55 BILIRUBIN TOTAL mg/dL 0.7 Test Results Pending At Discharge: Diet at the time of discharge: cardiac diet Nutrition Screen Activity: Normal activity as tolerated Objective Blood pressure 120/84, pulse 75, temperature 36.8 ???C (98.2 ???F), temperature source Temporal, resp. rate 19, height 1.75 m (5' 8.9 ), weight (!) 150 kg (330 lb 11 oz), SpO2 100 %. Cardiology: Normal rate, regular rhythm. Lungs: Clear to auscultation, no wheezes, rales or rhonchi, symmetric air entry. Abdomen: Soft, non tender, non distended. Total time for discharge - review of data, exam, discussion with providers and care-team, med-rec and orders, arranging follow up, counseling of patient and/or family and documentation was 30 minutes. Signed Jakub Reeves MD Hospital Medicine 10/04/2023 10:16 AM [facility] 10-03-2023 Note Hospital Medicine History and Physical 10/03/2023 11:33 AM THE HOSPITALIST TEAM PREFERS TO USE [employer] CHAT FOR COMMUNICATION 7AM-7PM. IF I DO NOT RESPOND WITHIN 15 MINUTES, PLEASE PAGE ME/CALL THROUGH THE BOOKKEEPING TEACHER. FROM 7PM-7AM, PLEASE PAGE [phone](COVR) Chief Complaint No chief complaint on file. History of Present Illness Ehsan Brumfield is an 48 y.o. male s/p left heart cath underwent pci and stent LAD.pt has h/o carol on cpap at night obesity htn hyperlipidemia prediabetes and cad has stent to OM s/p successful intervention ,seen post cath on bed denies new issues has chronic chest pain stable non radiating no associated symptoms Review of System and Physical Exam Heart Rate: [56-86] 72 Resp: [14-19] 14 BP: (107-151)/(55-101) 151/91 Physical Exam Vitals reviewed. Constitutional: Appearance: Normal appearance. He is obese. HENT: Head: Normocephalic and atraumatic. Right Ear: Tympanic membrane, ear canal and external ear normal. Left Ear: Tympanic membrane, ear canal and external ear normal. Nose: Nose normal. Mouth/Throat: Mouth: Mucous membranes are dry. Pharynx: Oropharynx is clear. Eyes: Extraocular Movements: Extraocular movements intact. Conjunctiva/sclera: Conjunctivae normal. Pupils: Pupils are equal, round, and reactive to light. Cardiovascular: Rate and Rhythm: Normal rate and regular rhythm. Pulmonary: Effort: Pulmonary effort is normal. Breath sounds: Normal breath sounds. Abdominal: General: Abdomen is flat. Bowel sounds are normal. Palpations: Abdomen is soft. Musculoskeletal: General: Normal range of motion. Cervical back: Normal range of motion and neck supple. Skin: General: Skin is warm and dry. Neurological: General: No focal deficit present. Mental Status: He is alert and oriented to person, place, and time. Psychiatric: Mood and Affect: Mood normal. Behavior: Behavior normal. Review of Systems Constitutional: Negative for activity change, chills, fatigue and fever. HENT: Negative for postnasal drip, rhinorrhea, sore throat and trouble swallowing. Stuffiness naose Eyes: Negative. Respiratory: Negative. Cardiovascular: Negative. Gastrointestinal: Negative. Endocrine: Negative. Genitourinary: Negative. Musculoskeletal: Negative. Right wrist pain stable Allergic/Immunologic: Negative. Neurological: Negative. Hematological: Negative. Psychiatric/Behavioral: Negative. Problem List Patient Active Problem List Diagnosis Date Noted Abnormal cardiovascular stress test 05/24/2023 Unstable angina ([facility]) 05/24/2023 Benign essential HTN 05/24/2023 Mixed hyperlipidemia 05/24/2023 Elevated hemoglobin A1c 05/24/2023 Morbid obesity with BMI of 45.0-49.9, adult (CMS/HCC) 05/24/2023 CAROL (obstructive sleep apnea) 05/24/2023 Coronary artery disease due to calcified coronary lesion 10/03/2023 Coronary artery disease due to lipid rich plaque 09/17/2023 Assessment and Plan S/p PCI /Stent to LAD Asa brilinta statin beta bhargavi post cath site care telemetry,follow with cardiology Htn continue coreg losartan aldactone diet Hyperlipidemia check fasting lipid am on statin diet Chf diastolic dysfunction compensated Prediabetes check hgba1c carb consistent diet VTE Prophylaxis: Post procedure ----- Focus of this inpatient stay will remain on problems that need acute care setting for care. We will review available studies and will order additional labs, imaging and other studies as appropriate. As needed medicines are ordered as appropriate. VTE Prophylaxis will be ordered as appropriate. Please see above for management plan for individual hospital problems. Home medications are reviewed and will be continued as appropriate. Patient will be continued to be followed during this hospital stay by a member of [facility]. Past Medical History Past Medical History: Diagnosis Date Coronary artery disease Hyperlipidemia Hypertension Hypothyroidism Sleep apnea Past Surgical History Past Surgical History: Procedure Laterality Date CARDIAC CATHETERIZATION CORONARY STENT PLACEMENT Social History Social History Socioeconomic History Marital status: Single Spouse name: Not on file Number of children: Not on file Years of education: Not on file Highest education level: Not on file Occupational History Not on file Tobacco Use Smoking status: Never Smokeless tobacco: Never Substance and Sexual Activity Alcohol use: Yes Comment: occasional Drug use: Not on file Sexual activity: Defer Other Topics Concern Not on file Social History Narrative Not on file Social Determinants of Health Financial Resource Strain: Not on file Food Insecurity: Not on file Transportation Needs: Not on file Physical Activity: Not on file Stress: Not on file Social Connections: Not on file Intimate Partner Violence: Not on file Housing Stability: Not on file F (more content not included)... [facility] 08-24-2023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 Assistants: Dr Candy Rolon, Dr Jakub Rhodes Procedures Performed: -Bilateral selective coronary angiography -Left heart catheterization -PCI of 90% stenosed OM 1, successfully reduced to 0% stenosis following Balloon angioplasty and drug-eluting stent placement with a 4.5 x 20 mm Megatron NA -Ultrasound-guided vascular access -Conscious sedation Final Impressions: -90% stenosis of mid OM 1, successfully reduced to 0% stenosis following Balloon angioplasty and rodo (more content not included)...[facility]08-11-2023 NoteUTP CARDIOLOGY PROGRESS NOTE HPI: Ehsan Brumfield is a 48 y.o. male with a past medical history including HTN, HLD, CAROL, and CAD s/p PCI of OM1. He presents today for follow up. Patient is doing well. He denies any cardiac complaints or concerns. He does report that his blood pressure has been on the lower end occasionally, and when this happens, he becomes dizzy. He denies any additional complaints or concerns. Patient denies any chest pain or shortness of breath. Patient denies any lower extremity edema, orthopnea, or proximal nocturnal dyspnea. No near-syncope or syncope. PMH: HTN uncontrolled, HPL, CAROL, obesity PSH: no pertinent cardiac FMH: Mother DM and HTN- r/t biliary CA, Father r/t renal cell CA, Sister DM Social: never a smoker, Alcohol-beer- 6 beers on weekends, Illicit drug use- denied ROS 10 point ROS is performed and is negative unless otherwise specified in HPI Visit Vitals BP 100/61 (BP Location: Left arm, Patient Position: Standing) Pulse 79 Ht 1.753 m (5' 9 ) Wt (!) 150 kg (330 lb) SpO2 96% BMI 48.73 kg/m??? Smoking Status Never BSA 2.7 m??? No Known Allergies Medications: Current Outpatient Medications on File Prior to Visit Medication Sig Dispense Refill aspirin 81 mg EC tablet Take 81 mg by mouth in the morning. atorvastatin (Lipitor) 80 mg tablet Take 1 tablet (80 mg) by mouth in the morning. 30 tablet 11 carvedilol (Coreg) 25 mg tablet Take 1 tablet (25 mg) by mouth with breakfast and with evening meal. 180 tablet 3 celecoxib (CeleBREX) 100 mg capsule 1 (one) time each day at the same time. cloNIDine (Catapres) 0.2 mg tablet Take 0.2 mg by mouth in the morning, afternoon, and at bedtime. clopidogrel (Plavix) 75 mg tablet Take 1 tablet (75 mg) by mouth in the morning. 90 tablet 3 furosemide (Lasix) 40 mg tablet Take 1 tablet (40 mg) by mouth in the morning. 90 tablet 0 irbesartan (Avapro) 300 mg tablet Take 300 mg by mouth in the morning. isosorbide mononitrate ER (Imdur) 30 mg 24 hr tablet Take 30 mg by mouth in the morning and at bedtime. levothyroxine (Synthroid, Levoxyl) 100 mcg tablet Take 100 mcg by mouth in the morning. nitroglycerin (Nitrostat) 0.[address] 1 tablet (0.3 mg) under the tongue every 5 (five) minutes if needed for chest pain. May repeat every 5 minutes for up to 3 doses. 100 tablet 11 sildenafil (Viagra) 100 mg tablet 1 (one) time each day at the same time. spironolactone (Aldactone) 25 mg tablet Take 1 tablet (25 mg) by mouth in the morning. 90 tablet 3 carvedilol (Coreg) 12.5 mg tablet Take 1 tablet (12.5 mg) by mouth with breakfast and with evening meal. (Patient taking differently: Take 18.75 mg by mouth with breakfast and with evening meal.) 60 tablet 11 [DISCONTINUED] clopidogrel (Plavix) 75 mg tablet Take 1 tablet (75 mg) by mouth in the morning. 30 tablet 0 No current facility-administered medications on file prior to visit. Physical Exam: Constitutional: Appearance: Normal appearance. Without apparent distress, obese HENT: Head: Normocephalic and atraumatic. Nose: Nose normal. Mouth/Throat: Mouth: Mucous membranes are moist. Eyes: Extraocular Movements: Extraocular movements intact. Conjunctiva/sclera: Conjunctivae normal. Neck: Vascular: No JVD. Cardiovascular: Rate and Rhythm: Normal rate and regular rhythm. Pulses: Dorsalis pedis pulses are 3 on the right side and 3on the left side. Posterior tibial pulses are 3 on the right side and 3 on the left side. Heart sounds: Normal heart sounds, S1 normal and S2 normal. Pulmonary: Effort: Pulmonary effort is normal. Breath sounds: Normal breath sounds. Abdominal: General: Bowel sounds are normal. Palpations: Abdomen is soft. Musculoskeletal: General: Normal range of motion. Cervical back: Normal range of motion. Right lower leg: Trace edema. Left lower leg: Trace edema. Skin: General: Skin is warm and dry. Capillary Refill: Capillary refill takes less than 2 seconds. Neurological: General: No focal deficit present. Mental Status: alert and oriented to person, place, and time. Psychiatric: Mood and Affect: Mood normal. Behavior: Behavior normal. Thought Content: Thought content normal. Judgment: Judgment normal. Labs: CBC normal Renal and liver function normal Chol - LDL is elevated A1c is elevated Last lab values have been reviewed CV Testing: EKG PCP office- Sinus bradycardia with sinus arrhythmia- LVH, ST-T wave abnormalities Stress test 05/14/23 Echo Cardiac catheterization Cardiac Cath Report 06/03/2023 Performing Physicians: -Karen Marcial MD Assistants: Dr Candy Rolon, Dr Jakub Rhodes Procedures Performed: -Bilateral selective coronary angiography -Left heart catheterization -PCI of 90% stenosed OM 1, successfully reduced to 0% stenosis following Balloon angioplasty and drug-eluting stent placement with a 4.5 x 20 mm Megatron NA -U (more content not included)...[facility]08-11-2023 NotePatient here for 1 mo follow up med changes. Carvedilol was increased to 25mg bid and he was started on spironolactone. Said one time his BP dropped to 80/30 and states he would not go to the ED. C/o dizziness upon standing. [facility]07-21-2023 NoteUTP CARDIOLOGY PROGRESS NOTE HPI: Ehsan Brumfield is a 48 y.o. male with a past medical history including HTN, HLD, CAROL, and CAD s/p PCI of OM1. He presents today for follow up. Overall, patient states that he feels significantly improved. He continues to have rare vague chest discomfort, but he thinks it may be related to his shoulder. He denies any exertional chest pain or shortness of breath. Patient denies any lower extremity edema, orthopnea, or proximal nocturnal dyspnea. No near-syncope or syncope. No dizziness or lightheadedness. Blood pressure has been difficult to control as per patient. He is taking his medications without complication. No bleeding. PMH: HTN uncontrolled, HPL, CAROL, obesity PSH: no pertinent cardiac FMH: Mother DM and HTN- r/t biliary CA, Father r/t renal cell CA, Sister DM Social: never a smoker, Alcohol-beer- 6 beers on weekends, Illicit drug use- denied ROS 10 point ROS is performed and is negative unless otherwise specified in HPI Visit Vitals BP (!) 132/94 (BP Location: Left arm, Patient Position: Sitting) Comment: manual Pulse 76 Ht 1.753 m (5' 9 ) Wt (!) 152 kg (336 lb) SpO2 95% BMI 49.62 kg/m??? Smoking Status Never BSA 2.72 m??? No Known Allergies Medications: Current Outpatient Medications on File Prior to Visit Medication Sig Dispense Refill aspirin 81 mg EC tablet Take 81 mg by mouth in the morning. atorvastatin (Lipitor) 80 mg tablet Take 1 tablet (80 mg) by mouth in the morning. 30 tablet 11 carvedilol (Coreg) 12.5 mg tablet Take 1 tablet (12.5 mg) by mouth with breakfast and with evening meal. (Patient taking differently: Take 18.75 mg by mouth with breakfast and with evening meal.) 60 tablet 11 cloNIDine (Catapres) 0.2 mg tablet Take 0.2 mg by mouth in the morning, afternoon, and at bedtime. furosemide (Lasix) 40 mg tablet Take 1 tablet (40 mg) by mouth in the morning. 90 tablet 0 irbesartan (Avapro) 300 mg tablet Take 300 mg by mouth in the morning. isosorbide mononitrate ER (Imdur) 30 mg 24 hr tablet Take 30 mg by mouth in the morning and at bedtime. levothyroxine (Synthroid, Levoxyl) 100 mcg tablet Take 100 mcg by mouth in the morning. nitroglycerin (Nitrostat) 0.[address] 1 tablet (0.3 mg) under the tongue every 5 (five) minutes if needed for chest pain. May repeat every 5 minutes for up to 3 doses. 100 tablet 11 [DISCONTINUED] clopidogrel (Plavix) 75 mg tablet Take 1 tablet (75 mg) by mouth in the morning. 30 tablet 0 No current facility-administered medications on file prior to visit. Physical Exam: Constitutional: Appearance: Normal appearance. Without apparent distress, obese HENT: Head: Normocephalic and atraumatic. Nose: Nose normal. Mouth/Throat: Mouth: Mucous membranes are moist. Eyes: Extraocular Movements: Extraocular movements intact. Conjunctiva/sclera: Conjunctivae normal. Neck: Vascular: No JVD. Cardiovascular: Rate and Rhythm: Normal rate and regular rhythm. Pulses: Dorsalis pedis pulses are 3 on the right side and 3on the left side. Posterior tibial pulses are 3 on the right side and 3 on the left side. Heart sounds: Normal heart sounds, S1 normal and S2 normal. Pulmonary: Effort: Pulmonary effort is normal. Breath sounds: Normal breath sounds. Abdominal: General: Bowel sounds are normal. Palpations: Abdomen is soft. Musculoskeletal: General: Normal range of motion. Cervical back: Normal range of motion. Right lower leg: Trace edema. Left lower leg: Trace edema. Skin: General: Skin is warm and dry. Capillary Refill: Capillary refill takes less than 2 seconds. Neurological: General: No focal deficit present. Mental Status: alert and oriented to person, place, and time. Psychiatric: Mood and Affect: Mood normal. Behavior: Behavior normal. Thought Content: Thought content normal. Judgment: Judgment normal. Labs: CBC normal Renal and liver function normal Chol - LDL is elevated A1c is elevated Last lab values have been reviewed CV Testing: EKG PCP office- Sinus bradycardia with sinus arrhythmia- LVH, ST-T wave abnormalities Stress test 05/14/23 Echo Cardiac catheterization Cardiac Cath Report 06/03/2023 Performing Physicians: -Karen Marcila MD Assistants: Dr Candy Rolon, Dr Jakub Rhodes Procedures Performed: -Bilateral selective coronary angiography -Left heart catheterization -PCI of 90% stenosed OM 1, successfully reduced to 0% stenosis following Balloon angioplasty and drug-eluting stent placement with a 4.5 x 20 mm Megatron NA -Ultrasound-guided vascular access -Conscious sedation Final Impressions: -90% stenosis of mid OM 1, successfully reduced to 0% stenosis following Balloon angioplasty and drug-eluting stent placement with a 4.5 x 20 mm Megatron NA -Moderate disease in LAD diffusely -Elevated LVEDP -Poorly controlled Bp Recommendations: -DAPT for at least 1 ye (more content not included)...[facility]07-21-2023 NotePatient here for follow up heart cath w/ PCI. Carvedilol was increased to 18.75mg bid last week for elevated BP's. 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 C/o myalgias after increase in statin. He did start CoQ10 and this has helped a little bit. He is still having chest soreness s/p PCI. Brought in his BP cuff from home and got 167/99 L sitting. Our machine in the office read 143/87 L sitting. He does feel better s/p intervention but thought he'd feel better quicker. Checked his BP on his machine again and it was 168/98.[facility]07-10-2023 NoteH&P reviewed. The patient was examined and there are no changes to the H&P. This was forwarded to me by mistake. Procedure was done by Dr. Marcial. [facility]07-10-2023 NotePatient: Ehsan Brumfield Procedure Information Date/Time: 06/03/23 0830 Procedure: Cardiac catheterization - Lt COrs Location: [facility] / [facility] (Cath) Providers: Karen Marcial MD Clinical information reviewed: Allergies Meds Physical Exam Airway Mallampati: III Neck ROM: full Cardiovascular Rhythm: regular Dental Pulmonary Abdominal Anesthesia Plan ASA 3 other (Conscious sedation) intravenous induction Anesthetic plan and risks discussed with patient. Use of blood products discussed with patient who. Plan discussed with fellow and attending. Additional Equipment [facility]sUn[facility]06-30-2023 Note Follow-up with PCPUnTrinity [facility] System06-30-2023 NoteRecommended weightUnTrinity Health System06-30-2023 NoteRecommended diet and lifestyle changes that would include regular exercise and weight lossUnTrinity Health System06-30-2023 NoteOrders for cardiac cath Reviewed stress test and echocardiogram results with patient and his [facility]06-30-2023 NoteHypertension is 146/95 Only uncontrolled on max dose of irbesartan, clonidine 0.2 mg 3 times daily, and metoprolol 100 mg twice daily with Imdur 60 mg daily We will add hydrochlorothiazide 25 mg to regimen Plan on cardiac cath next week and repeat lab work prior to cath-To assess CBC and BMP for renal functionUnTrinity Health System06-30-2023 Note Elevated LDL therefore start Lipitor 40 mg daily Discussed with patient to call office for myalgias, muscle aches joint aches that worsen he voiced understanding Repeat liver function and lipid profile in 2 to 3 monthsUnTrinity Health System06-30-2023 NoteWith unstable angina with exertion, Abnormal stress test with reversible anterior defect- LAD distribution Uncontrolled hypertension, hyperlipidemia, morbid obesity and elevated A1c ASCVD 9.8% 10 year risk or 1.7% risk with optimal medication Therefore Lipitor 40 mg initiated with LDL 108UnTrinity Health System06-30-2023 NoteNew patient here to establish care. Ref from Dr. Coronado for abnormal stress test. Has chest pain and MOISE. Does not use cpap machine for his CAROL. LE edema resolves by morning. 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 Review of Systems Cardiovascular: Positive for chest pain, dyspnea on exertion and leg swelling. Musculoskeletal: Positive for arthritis, back pain, joint pain, myalgias and neck pain. Neurological: Positive for headaches. All other systems reviewed and are negative.[facility] 05-24-2023 NoteUTP CARDIOLOGY PROGRESS NOTE HPI: Ehsan Brumfield is a 48 y.o. male here as new pt for abnormal stress test from Dr Coronado HPI Stress test was ordered by PCP for c/o worsening chest pain with activity- walking and rest- lying down at night. States he has had chest pain for the last 6 months, And recently it has been worsening and becoming more frequent. Currently occurs daily mid chest with radiation to jaw, and shortness of breath, occasionally with sweating- denied nausea. 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 He admits shortness of breath with walking from his house about 100 150 feet to his barn occasionally and he has to stop and catch his breath. Denies any recent viral illness, fever chills, injury or trauma. He does report having COVID-19 about 2 2-1/2 years ago and recovered fairly well as an outpatient with Dr. Coronado. Denies any personal cardiac history or history of any heart surgeries or procedures in the past He does have sleep apnea that he does not wear CPAP for. PMH: HTN uncontrolled, HPL, CAROL, obesity PSH: no pertinent cardiac FMH: Mother DM and HTN- r/t biliary CA, Father r/t renal cell CA, Sister DM Social: never a smoker, Alcohol-beer- 6 beers on weekends, Illicit drug use- denied Review of Systems Constitutional: Positive for fatigue. Respiratory: Positive for chest tightness and shortness of breath. Cardiovascular: Positive for chest pain. Neurological: Negative. Visit Vitals BP (!) 146/95 (BP Location: Left arm, Patient Position: Sitting) Pulse 68 Ht 1.753 m (5' 9 ) Wt (!) 153 kg (338 lb) SpO2 97% BMI 49.91 kg/m??? Smoking Status Never BSA 2.73 m??? No Known Allergies Medications: Current Outpatient Medications on File Prior to Visit Medication Sig Dispense Refill aspirin 81 mg EC tablet Take 81 mg by mouth in the morning. cloNIDine (Catapres) 0.2 mg tablet Take 0.2 mg by mouth in the morning, afternoon, and at bedtime. diclofenac (Voltaren) 75 mg EC tablet Take 75 mg by mouth in the morning and at bedtime. irbesartan (Avapro) 300 mg tablet Take 300 mg by mouth in the morning. isosorbide mononitrate ER (Imdur) 30 mg 24 hr tablet Take 30 mg by mouth in the morning and at bedtime. levothyroxine (Synthroid, Levoxyl) 100 mcg tablet Take 100 mcg by mouth in the morning. metoprolol tartrate (Lopressor) 50 mg tablet Take 100 mg by mouth in the morning and at bedtime. tiZANidine (Zanaflex) 4 mg tablet Take 8 mg by mouth at bedtime. No current facility-administered medications on file prior to visit. Physical Exam: Constitutional: Appearance: Normal appearance. Without apparent distress, obese HENT: Head: Normocephalic and atraumatic. Nose: Nose normal. Mouth/Throat: Mouth: Mucous membranes are moist. Eyes: Extraocular Movements: Extraocular movements intact. Conjunctiva/sclera: Conjunctivae normal. Neck: Vascular: No JVD. Cardiovascular: Rate and Rhythm: Normal rate and regular rhythm. Pulses: Dorsalis pedis pulses are 3 on the right side and 3on the left side. Posterior tibial pulses are 3 on the right side and 3 on the left side. Heart sounds: Normal heart sounds, S1 normal and S2 normal. Pulmonary: Effort: Pulmonary effort is normal. Breath sounds: Normal breath sounds. Abdominal: General: Bowel sounds are normal. Palpations: Abdomen is soft. Musculoskeletal: General: Normal range of motion. Cervical back: Normal range of motion. Right lower leg: Trace edema. Left lower leg: Trace edema. Skin: General: Skin is warm and dry. Capillary Refill: Capillary refill takes less than 2 seconds. Neurological: General: No focal deficit present. Mental Status: alert and oriented to person, place, and time. Psychiatric: Mood and Affect: Mood normal. Behavior: Behavior normal. Thought Content: Thought content normal. Judgment: Judgment normal. Labs: CBC normal Renal and liver function normal Chol - LDL is elevated A1c is elevated Last lab values have been reviewed CV Testing: EKG PCP office- Sinus bradycardia with sinus arrhythmia- LVH, ST-T wave abnormalities Stress test 05/14/23 Echo No echocardiogram results found for the past 12 months Assessment/Plan: Unstable angina (CMS/HCC) With unstable angina with exertion, Abnormal stress test with reversible anterior defect- LAD distribution Uncontrolled hypertension, hyperlipidemia, morbid obesity and elevated A1c ASCVD 9.8% 10 year risk or 1.7% risk with optimal medication Therefore Lipitor 40 mg initiated with LDL 108 Mixed hyperlipidemia Elevated LDL therefore start Lipitor 40 mg daily Discussed with patient to call office for myalgias, muscle aches joint aches that worsen he voiced understanding Repeat liver function and lipid profile in 2 to 3 months Benign essential HTN Hypertension is 146/95 (more content not included)...[facility]06-30-2023 Note [facility] CARDIOLOGY PROGRESS NOTE HPI: Ehsan Brumfield is a 48 y.o. male here as new pt for abnormal stress test from Dr Coronado HPI Stress test was ordered by PCP for c/o worsening chest pain with activity- walking and rest- lying down at night. States he has had chest pain for the last 6 months, And recently it has been worsening and becoming more frequent. Currently occurs daily mid chest with radiation to jaw, and shortness of breath, occasionally with sweating- denied nausea. 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 He admits shortness of breath with walking from his house about 100 150 feet to his barn occasionally and he has to stop and catch his breath. Denies any recent viral illness, fever chills, injury or trauma. He does report having COVID-19 about 2 2-1/2 years ago and recovered fairly well as an outpatient with Dr. Coronado. Denies any personal cardiac history or history of any heart surgeries or procedures in the past He does have sleep apnea that he does not wear CPAP for. PMH: HTN uncontrolled, HPL, CAROL, obesity PSH: no pertinent cardiac FMH: Mother DM and HTN- r/t biliary CA, Father r/t renal cell CA, Sister DM Social: never a smoker, Alcohol-beer- 6 beers on weekends, Illicit drug use- denied Review of Systems Constitutional: Positive for fatigue. Respiratory: Positive for chest tightness and shortness of breath. Cardiovascular: Positive for chest pain. Neurological: Negative. Visit Vitals BP (!) 146/95 (BP Location: Left arm, Patient Position: Sitting) Pulse 68 Ht 1.753 m (5' 9 ) Wt (!) 153 kg (338 lb) SpO2 97% BMI 49.91 kg/m??? Smoking Status Never BSA 2.73 m??? No Known Allergies Medications: Current Outpatient Medications on File Prior to Visit Medication Sig Dispense Refill aspirin 81 mg EC tablet Take 81 mg by mouth in the morning. cloNIDine (Catapres) 0.2 mg tablet Take 0.2 mg by mouth in the morning, afternoon, and at bedtime. diclofenac (Voltaren) 75 mg EC tablet Take 75 mg by mouth in the morning and at bedtime. irbesartan (Avapro) 300 mg tablet Take 300 mg by mouth in the morning. isosorbide mononitrate ER (Imdur) 30 mg 24 hr tablet Take 30 mg by mouth in the morning and at bedtime. levothyroxine (Synthroid, Levoxyl) 100 mcg tablet Take 100 mcg by mouth in the morning. metoprolol tartrate (Lopressor) 50 mg tablet Take 100 mg by mouth in the morning and at bedtime. tiZANidine (Zanaflex) 4 mg tablet Take 8 mg by mouth at bedtime. No current facility-administered medications on file prior to visit. Physical Exam: Constitutional: Appearance: Normal appearance. Without apparent distress, obese HENT: Head: Normocephalic and atraumatic. Nose: Nose normal. Mouth/Throat: Mouth: Mucous membranes are moist. Eyes: Extraocular Movements: Extraocular movements intact. Conjunctiva/sclera: Conjunctivae normal. Neck: Vascular: No JVD. Cardiovascular: Rate and Rhythm: Normal rate and regular rhythm. Pulses: Dorsalis pedis pulses are 3 on the right side and 3on the left side. Posterior tibial pulses are 3 on the right side and 3 on the left side. Heart sounds: Normal heart sounds, S1 normal and S2 normal. Pulmonary: Effort: Pulmonary effort is normal. Breath sounds: Normal breath sounds. Abdominal: General: Bowel sounds are normal. Palpations: Abdomen is soft. Musculoskeletal: General: Normal range of motion. Cervical back: Normal range of motion. Right lower leg: Trace edema. Left lower leg: Trace edema. Skin: General: Skin is warm and dry. Capillary Refill: Capillary refill takes less than 2 seconds. Neurological: General: No focal deficit present. Mental Status: alert and oriented to person, place, and time. Psychiatric: Mood and Affect: Mood normal. Behavior: Behavior normal. Thought Content: Thought content normal. Judgment: Judgment normal. Labs: CBC normal Renal and liver function normal Chol - LDL is elevated A1c is elevated Last lab values have been reviewed CV Testing: EKG PCP office- Sinus bradycardia with sinus arrhythmia- LVH, ST-T wave abnormalities Stress test 05/14/23 Echo No echocardiogram results found for the past 12 months Assessment/Plan: Unstable angina (CMS/HCC) With unstable angina with exertion, Abnormal stress test with reversible anterior defect- LAD distribution Uncontrolled hypertension, hyperlipidemia, morbid obesity and elevated A1c ASCVD 9.8% 10 year risk or 1.7% risk with optimal medication Therefore Lipitor 40 mg initiated with LDL 108 Mixed hyperlipidemia Elevated LDL therefore start Lipitor 40 mg daily Discussed with patient to call office for myalgias, muscle aches joint aches that worsen he voiced understanding Repeat liver function and lipid profile in 2 to 3 months Benign essential HTN Hypertension is 146/95 (more content not included)...[facility] N[facility] No data available for this section [facility] No data available for this section [facility] Summary Purpose Family History No Family History Records Found No data available for this section No Family History Records FoundNo Family History Records Found Advance Directives No Advanced Directives Records FoundNo Advanced Directives Records FoundNo Advanced Directives Records Found Additional Source Comments (unrecognized sect ion and content) No Status Records FoundNo Status Records FoundNo Status Records Found INFORMATION SOURCE (unrecogn ized section and content) DATE CREATED AUTHOR 01/02/2023 [facility] DATE CREATED AUTHOR AUTHOR'S ORGANIZ ATION 11/13/2023 [facility] DATE CREATED AUTHOR AUTHOR'S ORGANIZ ATION 01/24/[address] [facility] Patient Care team informatio n (unrecognized section and content) Personnel Name: Cindi Coronado MD Address: Address: [address] [place] [id number] Name: Drew Gallardo FOR RECORDS PERTAINING TO PATIENTS WHO ARE OR HAVE BEEN ENROLLED IN A CHEMICAL DEPENDENCY/SUBSTANCEABUSE PROGRAM, SOME INFORMATION MAY BE OMITTED. This clinical summary was aggregated from multiple sources. Caution should be exercised in using it in the provision of clinical care. This summary normalizes information from multiple sources, and as a consequence, information in this document may materially change the coding, format and clinical context of patient data. In addition, data may be omitted in some cases. CLINICAL DECISIONS SHOULD BE BASED ON THE PRIMARY CLINICAL RECORDS. [facility]. provides no warranty or guarantee of the accuracy or completeness of information in this document.
== END 2024-03-18 15:39 | disposition home or self-care (01) ==
LOC: RAD 15:39
PROVIDERS: PCP Family Medicine; Visit Provider Family Medicine
DX: M79.641 Pain in right hand (principal); M19.041 Primary osteoarthritis, right hand
CPT/HCPCS: 73130

== ENCOUNTER 2024-03-27 07:55 | Outpatient (OUT) | payer OTHER, SELFPAY ==
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
[2024-03-27 08:28] LABS: Basophils Percent Auto 0.2 % (0.2-2.0); Eosinophils Absolute Auto 0.2 10^3/uL (0.0-0.7); Eosinophils Percent Auto 1.8 % (0.9-7.0); Hematocrit 36.8 % (42.0-54.0); Hemoglobin 12.3 g/dL (14.0-18.0); Immature Granulocytes Abs Auto 0.04 10^3/uL (0.00-0.03); Immature Granulocytes Pct Auto 0.4 % (0.0-0.5); Lymphocytes Absolute Auto 3.1 10^3/uL (1.2-3.8); Lymphocytes Percent Auto 32.7 % (20.5-60.0); Mean Corpuscular HGB Conc 33.4 g/dL (29.9-35.2); Mean Corpuscular Hemoglobin 31.1 pg (25.9-34.0); Mean Corpuscular Volume 92.9 fL (80.0-94.0); Monocytes Absolute Auto 0.8 10^3/uL (0.3-0.8); Neutrophils Absolute Auto 5.4 10^3/uL (1.4-6.5); Neutrophils Percent Auto 56.9 % (43.0-75.0); Platelet Count 201 10^3/uL (150-450); Red Blood Count 3.96 10^6/uL (4.70-6.10); White Blood Count 9.6 10^3/uL (4.0-11.0)
[2024-03-27 09:01] LABS: Estimated Average Glucose 111 mg/dL; Glycohemoglobin A1C 5.5 % (4.5-6.2)
[2024-03-27 09:35] LABS: Anion Gap 12.7; Carbon Dioxide 25.4 mmol/L (21.0-32.0); Chloride 105 mmol/L (98-107); Potassium 4.1 mmol/L (3.5-5.1); Sodium 139 mmol/L (136-145)
[2024-03-27 09:36] LABS: Glucose 97 mg/dL (74-106)
[2024-03-27 09:37] LABS: Alanine Aminotransferase 32 U/L (16-63); Alkaline Phosphatase 75 U/L (46-116); Aspartate Amino Transferase 20 U/L (15-37); BUN Creatinine Ratio 23.3; Bilirubin Total 1.1 mg/dL (0.2-1.0); Calcium 8.7 mg/dL (8.5-10.1); Estimated GFR (African America >60 (>=60); Estimated GFR (Non-African Ame >60 (>=60); Total Protein 7.5 g/dL (6.4-8.2)
[2024-03-27 09:38] LABS: Albumin Globulin Ratio 0.8; Albumin Level 3.4 g/dL (3.4-5.0); Chol HDL Ratio 3.1; Cholesterol 111 mg/dL (<=200); Free T3 2.98 pg/mL (2.18-3.98); Globulin 4.1 g/dL; HDL Cholesterol 36 mg/dL (40-60); Thyroid Stimulating Hormone 0.098 uIU/mL (0.358-3.740); Triglycerides 108 mg/dL (<=150); VLDL CHOLESTEROL 21.6 mg/dL
[2024-03-27 09:40] LABS: Prostate Specific Antigen Scrn 0.46 ng/mL (<=4.00)
[2024-03-27 15:47] LABS: Occult Blood Positive
== END 2024-03-27 07:56 | disposition home or self-care (01) ==
LOC: LAB 07:56
PROVIDERS: PCP Family Medicine; Visit Provider Family Medicine
DX: Z00.00 Encounter for general adult medical examination without abnormal findings (principal); E78.5 Hyperlipidemia, unspecified; R73.9 Hyperglycemia, unspecified; Z12.5 Encounter for screening for malignant neoplasm of prostate; Z12.12 Encounter for screening for malignant neoplasm of rectum
CPT/HCPCS: 36415; 80053; 80061; 83036; 84436; 84443; 84481; 85025; G0103; G0328

== ENCOUNTER 2024-05-14 07:48 | Outpatient (OUT) | payer OTHER, SELFPAY ==
--- OUTSIDE RECORDS SUMMARY | 2024-05-14 07:59 | XMS_ITS | CCD ---
Author Organization [facility] Care Team Providers Care Sociology Research Assistant Name Role Phone ARIE, DR GRAYSON Admitting Unavailable TIMMIS, DR GRAYSON Attending Unavailable HOY, DR PUENTE Primary Care Unavailable TIMMIS, DR GRAYSON Admitting Unavailable TIMMIS, DR GRAYSON Attending Unavailable HOY, DR PUENTE Primary Care Unavailable HOY, DR PUENTE Admitting Unavailable HOY, DR PUENTE Attending Unavailable HOY, DR PUENTE Primary Care Unavailable HOY, DR PUENTE Consulting Unavailable Cindi Coronado Primary Care Physician Drew Gallardo Unavailable Unavailable Partha Rico Attending Unavailable ALGHOTHANI, MOHAMAD Attending Unavailable ALGHOTHANI, MOHAMAD Attending Unavailable ALGHOTHANI, MOHAMAD Attending Unavailable ALGHOTHANI, MOHAMAD Referring Unavailable ALGHOTHANI, MOHAMAD Referring Unavailable ALGHOTHANI, MOHAMAD Attending Unavailable ALGHOTHANI, MOHAMAD Attending Unavailable ALGHOTHANI, MOHAMAD Referring Unavailable ALGHOTHANI, MOHAMAD Referring Unavailable KATHIE CORNEJO Attending Unavailable ALGHOTHANI, MOHAMAD Admitting Unavailable ALGHOTHANI, MOHAMAD Attending Unavailable LESLIESAMMY Admitting Unavailable HORANI, JAKUB Attending Unavailable ALGHOTHANI, MOHAMAD Attending Unavailable Allergies Allergy Classification Reported Allergen(s) Allergy Type Date of Onset Reaction(s) Facility (1 source) No Known Medication Allergies; Translations: [No Known Medication Allergies] Propensity to adverse reactions (disorder) [facility] Repository Medications Current Medications Medication Drug Class(es) Dates Sig (Normalized) Sig (Original) bacitracin 0.5 unt/mg topical ointment (1 source) Start: 08-24-2023 End: 08-31-2023 bacitracin Top 500 units/g Oint 30 gram 1 muriel, Topical, QID for 7 day(s), 120 gm, Refill(s) 0, [facility]/pharmacy #[id number], 187.2, cm, 08/24/23 16:54:00 EDT, Height/Length [...] day(s), # 12 tab(s), Refills(s) 0, Pharmacy: [facility]/pharmacy #[id number], 187.2, cm, 08/24/23 16:54:00 EDT, Height/Length Dosing, 150, kg, 08/24/23 16:54:00 EDT, Weight Dosing Start Date: 08/24/23 Stop Date: 08/27/23 Status: Ordered Problems Active Problems Problem Classification Problem Date Documented Date Episodic/Chronic Anxiety disorders (1 source) Mixed anxiety and 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-23-2020 Chronic 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) Atherosclerotic heart disease of [place] coronary artery without angina pectoris; Translations: [Coronary atherosclerosis due to lipid rich plaque] Onset: 05-24-2023 Chronic Disorders of lipid metabolism [...] Test Name Value Interpretation Reference Range Facility Physician Referralon 024 Physician Referral [id number] Normal [facility] Office Visiton 01-03-2024 Follow-up visit [id number] Pepe Brumfield 1975 M Date Provider Department Center 01/03/2024 KAREN BARAHONA Family History Problem Relation Age of Onset Hypertension Father Heart attack Maternal Grandfather Family Status - Relation Status Age at Father Maternal Grandfather Level of Service:96733 SD OFFICE/OUTPATIENT ESTABLISHED LOW MDM 20 MIN Normal [facility] Office Visiton 11-22-2023 Follow-up visit [id number] Pepe Brumfield 1975 M Date Provider Department Center 11/22/2023 KAREN BARAHONA Family History Problem Relation Age of Onset Hypertension Father Heart attack Maternal Grandfather Family Status - Relation Status Age at Father Maternal Grandfather Level of Service:97103 SD OFFICE/OUTPATIENT ESTABLISHED MOD MDM 30 MIN Normal [facility] 30on 10-04-2023 30 The patient is Moderately [...] patient/family on patient safety, including physical limitations [place] fall precautions as indicated by assessment Instruct patient to call for assistance with activity based on assessment Modify environment to reduce risk of injury Consider OT/PT consult to assist with strengthening/mobilit y Problem: Discharge Planning Goal: Discharge to home or other facility with appropriate resources Outcome: Completed Flowsheets (Taken 10/04/2023 9916) Discharge to home or other facility with [...] or improved Outcome: Completed Flowsheets (Taken 10/04/2023 6376) Care Plan - Patient's Chronic Conditions and [...] prevent exacerbation or deterioration Patient discharged Normal [facility] CBC WITH AUTO DIFFERENTIALon 10-04-2023 Basophils (Bld) [#/Vol] 0.02 10*3/uL Normal 0.00-0.20 [facility] Comment on above: Performed By: #### L [id number] ####[facility] (BEAKER)[address] [place] [address] Basophils/100 WBC (Bld) 0.2 % Normal 0.0-1.0 [facility] Comment on above: Performed By: #### L [id number] ####[facility] (BEAKER)[address] [place] [address] Eosinophils (Bld) [#/Vol] 0.19 10*3/uL Normal 0.00-0.50 [facility] Comment on above: Performed By: #### L [id number] ####[facility] (BEAKER)[address] [place] [address] Eosinophils/100 WBC (Bld) 1.6 % Normal 0.0-6.0 [facility] Comment on above: Performed By: #### L [id number] ####[facility] (BEAKER)[address] [place] [address] Erythrocyte distribution width (RBC) [Ratio] 13.6 % Normal 11.5-15.0 [facility] Comment on above: Performed By: #### L [id number] ####[facility] (BEAKER)[address] [place] [address] ERYTHROCYTE MEAN CORPUSCULAR HEMOGLOBIN CONCENTRATION (G/DL) BY AUTOMATED 33.1 g/dL Normal 32.0-35.0 [facility] Comment on above: Performed By: #### L [id number] ####[facility] (BEAKER)[address] [place] [address] Hematocrit (Bld) [Volume fraction] 35.9 % Low 39.0-55.0 [facility] Comment on above: Performed By: #### L [id number] ####[facility] (BEAKER)[address] [place] [address] Hemoglobin (Bld) [Mass/Vol] 11.9 g/dL Low 13.0-17.0 [facility] Comment on above: Performed By: #### L [id number] ####[facility] (BEAKER)[address] [place] [address] Immature granulocytes (Bld) [#/Vol] 0.11 10*3/uL Normal 0.00-0.20 [facility] Comment on above: Performed By: #### L [id number] ####[facility] (BEAKER)[address] [place] [address] Immature granulocytes/100 WBC (Bld) 0.9 % Normal 0.0-1.0 [facility] Comment on above: Performed By: #### L [id number] ####[facility] (BEAKER)[address] [place] [address] Lymphocytes (Bld) [#/Vol] 3.01 10*3/uL Normal 1.20-4.00 [facility] Comment on above: Performed By: #### L [id number] ####[facility] (BEAKER)[address] [place] [address] Lymphocytes/100 WBC (Bld) 25.7 % Normal 20.0-45.0 [facility] Comment on above: Performed By: #### L [id number] ####[facility] (BEAKER)[address] [place] [address] MCH (RBC) [Entitic mass] 31.1 pg Normal 27.0-33.0 [facility] Comment on above: Performed By: #### L [id number] ####[facility] (BEAKER)[address] [place] [address] MCV (RBC) [Entitic vol] 93.7 fL Normal 82.0-98.0 [facility] Comment on above: Performed By: #### L [id number] ####[facility] (BEAKER)[address] [place] [address] Monocytes (Bld) [#/Vol] 1.12 10*3/uL High 0.10-1.00 [facility] Comment on above: Performed By: #### L [id number] ####[facility] [place] [address] Monocytes/100 WBC (Bld) 9.6 % Normal 5.0-12.0 [facility] Comment on above: Performed By: #### L [id number] ####[facility] ([facility])[address] [place] [address] Neutrophils (Bld) [#/Vol] 7.26 10*3/uL Normal 1.60-7.60 [facility] Comment on above: Performed By: #### L [id number] ####[facility] ([facility] [place] [address] Neutrophils/100 WBC (Bld) 62.0 % Normal 40.0-72.0 [facility] Comment on above: Performed By: #### L [id number] ####[facility] ([facility])[address] [place] [address] NRBC (PER 100 WBCS) BY AUTOMATED COUNT 0.0 % Normal 0 [facility] Comment on above: Performed By: #### L [id number] ####[facility] ([facility] [place] [address] PLATELETS (10*3/UL) IN BLOOD AUTOMATED COUNT 257 10*3/uL Normal 150-400 [facility] Comment on above: Performed By: #### L [id number] ####[facility] ([facility] [place] [address] RBC (Bld) [#/Vol] 3.83 10*6/uL Low 4.20-5.70 [facility] Comment on above: Performed By: #### L [id number] ####[facility] (BEAKER)[address] [place] [address] WBC (Bld) [#/Vol] 11.71 10*3/uL High 4.00-10.60 [facility] Comment on above: Performed By: #### L [id number] ####[facility] ([facility])[address] [place] [address] COMPREHENSIVE METABOLIC PANE Giovani 10-04-2023 Albumin [Mass/Vol] 3.6 g/dL Normal 3.5-5.7 [facility] Comment on above: Performed By: #### L [id number] ####[facility] ([facility])[address] [place] [address] ALP [Catalytic activity/Vol] 55 U/L Normal 34-104 [facility] Comment on above: Performed By: #### L [id number] ####[facility] ([facility])[address] [place] [address] ALT [Catalytic activity/Vol] 17 U/L Normal 7-52 [facility] Comment on above: Performed By: #### L [id number] ####[facility] ([facility])[address] [place] [address] Anion gap [Moles/Vol] 11 mmol/L Normal 7-20 [facility] Comment on above: Performed By: #### L [id number] ####[facility] ([facility])[address] [place] [address] AST [Catalytic activity/Vol] 16 U/L Normal 13-39 [facility] Comment on above: Performed By: #### L [id number] ####[facility] ([facility])[address] [place] [address] Bilirubin [Mass/Vol] 0.7 mg/dL Normal 0.3-1.0 [facility] Comment on above: Performed By: #### L [id number] ####[facility] ([facility])[address] [place] [address] Calcium [Mass/Vol] 8.8 mg/dL Normal 8.6-10.3 [facility] Comment on above: Performed By: #### L [id number] ####[facility] ([facility])[address] [place] [address] Chloride [Moles/Vol] 107 mmol/L Normal 98-107 [facility] Comment on above: Performed By: #### L [id number] ####[facility] ([facility])[address] [place] [address] CO2 [Moles/Vol] 23 mmol/L Normal 21-31 [facility] Comment on above: Performed By: #### L [id number] ####[facility] ([facility])[address] [place] [address] Creatinine [Mass/Vol] 1.02 mg/dL Normal 0.70-1.30 [facility] Comment on above: Performed By: #### L [id number] ####[facility] ([facility])[address] [place] [address] GLOMERULAR FILTRATION RATE ML/MIN/1.73 SQ M.PREDICTED 90.7 mL/min/1.73m*2 Normal >60.0 [facility] Comment on above: Result Comment: The [facility]???s estimated glomerular filtration rate (eGFR) will no [...] individuals. Performed By: #### L [id number] ####[facility] ([facility])[address] [place] [address] Glucose [Mass/Vol] 113 mg/dL High 70-100 [facility] Comment on above: Performed By: #### L [id number] ####[facility] ([facility])[address] [place] [address] Potassium [Moles/Vol] 4.0 mmol/L Normal 3.5-5.1 [facility] Comment on above: Performed By: #### L [id number] ####[facility] (BEAKER)[address] [place] [address] Protein [Mass/Vol] 6.3 g/dL Normal 6.0-8.3 [facility] Comment on above: Performed By: #### L [id number] ####[facility] (BEAKER)[address] [place] [address] Sodium [Moles/Vol] 137 mmol/L Normal 136-145 [facility] Comment on above: Performed By: #### L [id number] ####[facility] (BEAKER)[address] [place] [address] Urea nitrogen [Mass/Vol] 18 mg/dL Normal 7-25 [facility] Comment on above: Performed By: #### L [id number] ####[facility] (BEAKER)[address] [place] [address] UREA NITROGEN/CREATININE (MASS RATIO) IN SER/PLAS 17.6 Normal [facility] Comment on above: Performed By: #### L [id number] ####[facility] (BEAKER)[address] [place] [address] LIPID PANELon 10-04-2023 CHOL/HDL 3.6 mg/dL Normal [facility] Comment on above: Performed By: #### L [id number] ####[facility] (BEAKER)[address] [place] [address] Cholesterol [Mass/Vol] 90 mg/dL Low 120-200 [facility] Comment on above: Performed By: #### L [id number] ####[facility] (BEAKER)[address] [place] [address] Magnesium [Mass/Vol] 154 mg/dL High 40-149 [facility] Comment on above: Result Comment: TRIG LYCERIDE REFERENCE RANGE: 20 YEARS AND OLDER CARDIOVASCULAR RISK LESS THAN 150 mg/dL LOW RISK 150 TO 199 mg/dL BORDERLINE RISK 200 mg/dL AND GREATER HIGH RISK Performed By: #### L [id number] ####[facility] (BEAKER)[address] [place] [address] Magnesium [Mass/Vol] 34 mg/dL Normal 0-160 [facility] Comment on above: Performed By: #### L [id number] ####[facility] ([facility] [place] [address] Magnesium [Mass/Vol] 25 mg/dL Normal 23-92 [facility] Comment on above: Performed By: #### L [id number] ####[facility] ([facility] [place] [address] NON HDL CHOL. (LDL+VLDL) 65 Normal [facility] Comment on above: Performed By: #### L [id number] ####[facility] ([facility] [place] [address] TOTAL VLDL-C 31 mg/dL Normal 0-40 [facility] Comment on above: Performed By: #### L [id number] ####[facility] ([facility] [place] [address] ANESon 10-03-2023 ANES - Attestation signed by Karen Marcial MD at 10/15/2023 8:27 AM Agree with fellow's note as documented above. Patient: Ehsan Brumfield Procedure Information Date/Time: 10/03/23 0830 Procedure: Percutaneous coronary intervention - OF LAD Location: [facility] / [facility]ASCULAR [facility] (Cath) Providers: Karen [...] fellow and attending. Additional Equipment Requests Normal [facility] HPon 10-03-2023 HP - Attestation signed by [...] of the LAD Tameka Mirza DO, MPH [employer] [facility] NURSNOTEon 10-03-2023 NURSNOTE Family notified of room number. [facility] NURSNOTE Report given to BETTINA Baum from Ellie DUNBAR Any medications or safety alerts were reviewed. Any pending diagnostics and notifications were also reviewed, as well as any safety concerns or issues, abnormal labs, abnormal imagining, and abnormal assessment findings. Questions were answered. [facility] Orders Onlyon 09-17-2023 Orders Only [id number] Pepe Brumfield 1975 M Date Provider Department Center 09/17/2023 RODRIGO JOHNSON Family History Problem Relation Age of Onset Hypertension Father Heart attack Maternal Grandfather Family Status - Relation Status Age at Father Maternal Grandfather [facility] ABO/Rh History Checkon 08-25 ABO/Rh History Check Patient discharged prior [facility] Comment on above: Performed By: #### 1 [id number], 0937355, 24386437, 11055125 ####[facility] [address] [place] [address] ABO/Rhon 08-24-2023 ABO/Rh Positive Invalid Interpretation Code [facility] Comment on above: Performed By: #### 1 9698703, 1780741, 55630773, [id number] ####[facility] [address] [place] [address] ABSCon 08-24-2023 ABSC Gel Interp Negative Normal [place] Comment on above: Performed By: #### 1 3818121, 4572102, 92410227, 61861544 ####[facility] [address] [place] [address] Auto Diffon 08-24-2023 Basophils/100 WBC (Bld) 0.5 % Normal 0.0-2.0 [facility] Comment on above: Order Comment: Order Added by Discern Expert. Performed By: #### 2 994568, 6311366, 3880826, 8801531, 0674140, 9057517, 6263483, 51903613, 61871066 ####[address] [address] Basophils/Leukocytes Auto (Bld) [Pure # fraction] 0.1 E9/L Normal 0.0-0.2 [facility] Comment on above: Order Comment: Order Added by Discern Expert. Performed By: #### 2 219789, 5772947, 4772791, 6849727, 3722276, 7381741, 3498259, 74160664, 39136539 ####[address] [place] [address] Eosinophils/100 WBC (Bld) 1.7 % Normal 0.0-8.0 [facility] Comment on above: Order Comment: Order Added by Discern Expert. Performed By: #### 2 656583, 2459113, 0165220, 4330494, 5857303, 2078279, 1562818, 34032187, 45007308 ####[address] [place] [address] Eosinophils/Leukocytes Auto (Bld) [Pure # fraction] 0.2 E9/L Normal 0.0-0.5 [facility] Comment on above: Order Comment: Order Added by Discern Expert. Performed By: #### 2 356761, 5196246, 3081479, 8992986, 4599268, 0002954, 5399633, 86466562, 31279419 ####[address] [place] [address] Lymphocytes/100 WBC (Bld) 23.5 % Normal 14.0-50.0 [facility] Comment on above: Order Comment: Order Added by Discern Expert. Performed By: #### 2 885478, 8591920, 5758066, 5534283, 5369992, 7311529, 9537265, 79948540, 44714121 ####[address] [address] Lymphocytes/Leukocytes Auto (Bld) [Pure # fraction] 3.0 E9/L Normal 1.0-4.0 [facility] Comment on above: Order Comment: Order Added by Discern Expert. Performed By: #### 2 885976, 7670043, 3775591, 9537838, 2484249, 8493662, 5050323, 99749299, 04914369 ####[address] [address] Monocytes/100 WBC (Bld) 7.7 % Normal 4.0-14.0 [facility] Comment on above: Order Comment: Order Added by Discern Expert. Performed By: #### 2 802792, 4092011, 3814967, 2764838, 4552162, 2279468, 9644219, 15667227, 89089608 ####[address] [place] [address] Monocytes/Leukocytes Auto (Bld) [Pure # fraction] 1.0 E9/L Normal 0.2-1.0 [facility] Comment on above: Order Comment: Order Added by Winnie Expert. Performed By: #### 2 494868, 4330792, 5515956, 3321291, 5011613, 2364217, 6203673, 25178767, 11369245 ####[facility] [address] [place] [address] Neutrophils/100 WBC (Bld) 66.6 % Normal 36.0-75.0 [facility] Comment on above: Order Comment: Order Added by Discern Expert. Performed By: #### 2 988205, 7964337, 7006524, 9481533, 9252150, 0342067, 5212530, 57841265, 72491979 ####[facility] [address] [place] [address] Neutrophils/Leukocytes Auto (Bld) [Pure # fraction] 8.6 E9/L High 2.0-7.5 [facility] Comment on above: Order Comment: Order Added by Discern Expert. Performed By: #### 2 903419, 6394801, 1623030, 5147920, 7831093, 0141737, 2020670, 61709038, 75204470 ####[facility] [address] [place] [address] BLOOD BANKOrdered By: Steph Jacome on 08-24-2023 ABO/Rh Interp Positive Invalid Interpretation Code [facility] Subsection ABSC Gel Interp Negative (08/24/23 5:01 PM) Normal [facility] Subsection BMPon 08-24-2023 Creatinine [Mass/Vol] 1.2 mg/dL Normal 0.5-1.3 [facility] Comment on above: Performed By: #### 2 863447, 9830162, 1039780, 9572219, 0774059, 2707417, 7737088, 18985140, 86765817 ####[facility] [address] [place] [address] Urea nitrogen [Mass/Vol] 28 mg/dL High 5-21 [facility] Comment on above: Performed By: #### 2 592360, 8351798, 4316710, 3570060, 6488986, 3732146, 2468255, 49261542, 66304799 ####[facility] [address] [place] [address] Urea nitrogen/Creatinine [Mass ratio] 23 No Units High 10-20 [facility] Comment on above: Performed By: #### 2 470315, 5497354, 1194840, 4584152, 5142750, 1535904, 7591025, 50206132, 84026892 ####[facility] [address] [place] [address] Anion gap [Moles/Vol] 10 mmol/L Normal 6-16 [facility] Comment on above: Performed By: #### 2 563821, 8090247, 5469812, 4942975, 2027162, 5748863, 3102674, 82644060, 80408102 ####[facility] [address] [place] [address] Calcium [Mass/Vol] 8.8 mg/dL Low 8.9-11.1 [facility] Comment on above: Performed By: #### 2 401933, 7019514, 8815275, 0525238, 0169266, 1367231, 1184392, 22019909, 65870045 ####[facility] [address] [place] [address] Chloride [Moles/Vol] 104 mmol/L Normal 101-111 [facility] Comment on above: Performed By: #### 2 788888, 2000415, 1968739, 7191014, 9288162, 4241678, 6378340, 15799507, 10809340 ####[facility] [address] [place] [address] CO2 [Moles/Vol] 25 mmol/L Normal 21-31 [place] Comment on above: Performed By: #### 2 040902, 5234582, 3096551, 5714609, 3724785, 6899927, 9858017, 43432239, 84189656 ####[facility] [address] [place] [address] Glucose [Mass/Vol] 140 mg/dL Normal 55-199 [facility] Comment on above: Result Comment: If t his glucose result represents a fasting glucose, interpretation should refer to the following reference range: 55-99 mg/dL Performed By: #### 2 000333, 8387433, 4004029, 5112732, 5074080, 3533263, 7733900, 03731770, 91594560 ####[facility] [address] [place] [address] Potassium [Moles/Vol] 4.1 mmol/L Normal 3.5-5.3 [facility] Comment on above: Performed By: #### 2 508089, 2506823, 1731105, 6241082, 6346270, 0678196, 1163084, 18604763, 64727952 ####[facility] [address] [place] [address] Sodium [Moles/Vol] 135 mmol/L Normal 135-145 [facility] Comment on above: Performed By: #### 2 635412, 5573257, 8053261, 4062230, 5901160, 3632232, 4173477, 46875283, 77580316 ####[facility] [address] [place] [address] Blood Bank ID#on 08-24-2023 BBID# [id number] Invalid Interpretation Code [facility] Comment on above: Performed By: #### 1 1129111, 7340693, 16457980, 79263530 ####[facility] [address] [place] [address] CBC w/ Auto Diffon 3 Erythrocyte distribution width (RBC) [Ratio] 14.4 % High 10.9-14.2 [facility] Comment on above: Performed By: #### 2 095209, 9111976, 9208305, 2432467, 6399764, 0195515, 5492350, 38303522, 75065667 ####[facility] [address] [place] [address] Hematocrit (Bld) [Volume fraction] 42.0 % Normal 37.7-49.0 [facility] Comment on above: Performed By: #### 2 421059, 6750145, 7471596, 6576359, 4164555, 5424675, 1843755, 24450610, 62972177 ####[facility] [address] [place] [address] Hemoglobin (Bld) [Mass/Vol] 14.1 g/dL Normal 13.5-17.5 [facility] Comment on above: Performed By: #### 2 428550, 2629184, 4061109, 0101989, 7514127, 2579295, 7812940, 03613255, 76405163 ####[facility] [address] [place] [address] MCH (RBC) [Entitic mass] 31.0 pg Normal 27.0-34.0 [facility] [facility] Comment on above: Performed By: #### 2 043558, 9420225, 0173266, 4504261, 6069760, 9553117, 9593192, 81434429, 89214230 ####[address] [address] MCHC (RBC) [Mass/Vol] 33.6 g/dL Normal 31.4-36.0 [facility] Comment on above: Performed By: #### 2 106522, 5640410, 7787566, 3709413, 4506489, 8019424, 9300655, 04307665, 19623323 ####[address] [address] MCV (RBC) [Entitic vol] 92.5 fL Normal 80.0-100.0 [facility] Comment on above: Performed By: #### 2 863025, 5920256, 3138826, 5568648, 3015117, 7826883, 5149013, 43690427, 98630533 ####[address] [place] [address] Platelet mean volume (Bld) [Entitic vol] 9.4 fL Normal 6.4-10.8 [facility] Comment on above: Performed By: #### 2 801078, 9722755, 1853429, 3729080, 6571402, 2990320, 2116593, 41311753, 79861722 ####[facility] [address] [place] [address] Platelets (Bld) [#/Vol] 203.0 E9/L Normal 150.0-500.0 [facility] Comment on above: Performed By: #### 2 991246, 8630960, 1564234, 6108135, 4526771, 8060484, 1168465, 35206003, 81463330 ####[facility] [address] [place] [address] RBC (Bld) [#/Vol] 4.6 E12/L Normal 4.3-5.9 [facility] Comment on above: Performed By: #### 2 023061, 3032367, 7694443, 1753530, 0287841, 5498320, 7370719, 77315261, 27167686 ####[facility] [address] [place] [address] WBC corrected for nucl RBC Auto (Bld) [#/Vol] 12.9 E9/L High 4.0-11.0 [place] Comment on above: Performed By: #### 2 611492, 9363217, 7107172, 8048798, 9823669, 8265356, 8865408, 34439992, 95957805 ####[facility] [address] [place] [address] CHEMISTRYOrdered By: SYSTEM SYSTEM on 08-24-2023 Albumin [...] mmol/L Normal 6 - 16 mEq/L F C Remisol AST [Catalytic activity/Vol] 33 [iU]/d Normal 5 - 43 Int._Unit/L FT Remisol Bilirubin [Mass/Vol] 0.7 mg/dL Normal 0.0 - 1 .1 mg/dL FT Remisol Bilirubin.direct [Mass/Vol] 0.2 mg/dL Normal 0.1 - 0.4 mg/dL FT Remisol Bilirubin.indirect [Mass or moles/Vol] 0.6 mg/dL Normal 0.1 - 0.9 mg/dL FT Remisol Calcium [Mass/Vol] 8.8 mg/dL Low 8.9 - 11. 1 mg/dL FT Remisol Chloride [Moles/Vol] 104 mmol/L Normal 101 - 1 11 mmol/L [facility] Remisol CO2 [Moles/Vol] 25 mmol/L Normal 21 - 31 mmol/L FT Remisol Creatinine [Mass/Vol] 1.2 mg/dL Normal 0.5 - 1.3 mg/dL FT Remisol Ethanol [Mass/Vol] mg/dL Normal <=7mg/dL [facility] R emisol GFR/1.73 sq M.predicted among non-blacks MDRD (S/P/Bld) [Vol rate/Area] 75 mL/min/1.73 m2 Normal >=59mL/min/1 .73 m2 [facility] Chem S Comment on above: Interpretive Data: [...] 4.1 mmol/L Normal 3.5 - 5.3 mmol/L [facility] Remisol Protein [Mass/Vol] 7.4 g/dL Normal 6.0 [...] Sensitivity Troponin I Instructions For Use, [employer], June 2018) Urea nitrogen [Mass/Vol] 28 mg/dL High 5 - 21 mg/dL [facility] Remisol Urea nitrogen/Creatinine [Mass ratio] 23 mg/mg High 10 - 20 [facility] Remisol COAGULATIONOrdered By: Miki Arrieta on 08-24-2023 aPTT Coag (PPP) [Time] 32.0 s Normal 25.1 - 36.5 second(s) [facility] Auto Coag Comment on above: Interpretive Data: [...] the same coagulation reagent and instrumentation as [facility]. Currently there are no coagulation studies available worldwide for children to 14 days, and no normal ranges. Heparin therapeutic range (represented by Anti-Factor Xa activity of 0.2 - 0.4 U/mL) corresponds to PTT of 56.6 - 109.0 sec. INR Coag (PPP) [Relative time] 1.0 {INR} Invalid Interpretation Code [facility] Auto Coag Comment on above: Interpretive Data: I NR results are specifically intended to assess patients stabilized on long-term Anticoagulation therapy suggested INR s Less Intensive Anticoagulation 2.0 3.0 Conventional Range 3.0 4.5 PT Coag (PPP) [Time] 11.4 s Normal 9.4 - 1 2.5 second(s) [facility] Auto Coag Comment on above: Interpretive Data: [...] the same coagulation reagent and instrumentation as [facility]. Currently there are no coagulation studies available [...] 300 Contrast amount in ml's: 100 Normal [facility] CT Chest w/ Contraston 08-24 CT [...] 300 Contrast amount in ml's: 100 Normal [facility] CT Head or Brain w/o Contras [...] MD Transcribed by: SHARONA Technologist: CONCETTA Hernandez [facility] CT Spine Cervical w/o Contra ston [...]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
[2024-05-14 08:17] LABS: Basophils Percent Auto 0.2 % (0.2-2.0); Eosinophils Absolute Auto 0.2 10^3/uL (0.0-0.7); Eosinophils Percent Auto 2.1 % (0.9-7.0); Hematocrit 37.2 % (42.0-54.0); Hemoglobin 12.3 g/dL (14.0-18.0); Immature Granulocytes Abs Auto 0.08 10^3/uL (0.00-0.03); Immature Granulocytes Pct Auto 0.8 % (0.0-0.5); Mean Corpuscular HGB Conc 33.1 g/dL (29.9-35.2); Mean Corpuscular Hemoglobin 31.1 pg (25.9-34.0); Mean Corpuscular Volume 94.2 fL (80.0-94.0); Mean Platelet Volume 10.5 fL (9.5-13.5); Monocytes Absolute Auto 0.7 10^3/uL (0.3-0.8); Monocytes Percent Auto 7.7 % (1.7-12.0); Neutrophils Absolute Auto 5.4 10^3/uL (1.4-6.5); Neutrophils Percent Auto 57.2 % (43.0-75.0); Platelet Count 203 10^3/uL (150-450); Red Blood Count 3.95 10^6/uL (4.70-6.10); Red Cell Distribution Width 12.8 % (11.0-15.0); White Blood Count 9.4 10^3/uL (4.0-11.0)
[2024-05-15 04:08] LABS: CEA 1.5 ng/mL (0.0-4.7)
== END 2024-05-14 07:49 | disposition home or self-care (01) ==
LOC: LAB 07:51
PROVIDERS: PCP Family Medicine; Visit Provider Family Medicine
DX: D64.9 Anemia, unspecified (principal)
CPT/HCPCS: 36415; 82378; 82728; 83540; 85025

== ENCOUNTER 2024-10-20 06:47 | Outpatient (OUT) | payer OTHER, SELFPAY ==
--- OUTSIDE RECORDS SUMMARY | 2024-10-20 06:51 | XMS_ITS | CCD ---
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 Bilirubin.direct [Mass/Vol] 0.2 mg/dL Normal 0.1-0.4 [facility] Comment on above: Performed By: #### 2 166588, 1932927, 2510428, 7543203, 5350861, 0870936, 0274743, 14436280, 79249076 ####[address] [place] [address] Bilirubin.indirect [Mass or moles/Vol] 0.6 mg/dL Normal 0.1-0.9 [facility] Comment on above: Performed By: #### 2 801425, 6982174, 1979414, 1672125, 7072234, 3427989, 0860729, 61557361, 40966875 ####[address] [address] Globulin (S) [Mass/Vol] 3.7 g/dL Normal 1.4-4.0 [facility] Comment on above: Performed By: #### 2 583747, 7126675, 7975644, 0792211, 8985748, 2274399, 7145782, 08055024, 51749201 ####[address] [place] [address] Protein [Mass/Vol] 7.4 g/dL Normal 6.0-7.8 [facility] Comment on above: Performed By: #### 2 700601, 8969885, 2033217, 2335166, 1196972, 3318849, 6165308, 96767980, 24033777 ####[address] [place] [address] Lactic Acidon 08-24-2023 Lactate [Mass/Vol] 1.3 mmol/L Normal 0.5-2.2 [facility] Comment on above: Performed By: #### 2 535720, 1972055, 1857825, 9693332, 2966204, 9201216, 3108305, 17538229, 16403853 ####[facility] [address] [place] [address] Lipase Levelon 08-24-2023 Lipase [Catalytic activity/Vol] 47 U/L Normal 13-58 [facility] Comment on above: Performed By: #### 2 370349, 1141032, 7231439, 0707421, 1609591, 1016637, 1836595, 71919221, 58555678 ####[facility] [address] [place] [address] PT & PTTon 08-24-2023 aPTT Coag (PPP) [Time] 32.0 second(s) Normal 25.1-36.5 [facility] Comment on above: Result Comment: Para [...] same coagulation reagent and instrumentation as [facility]. Currently there are no coagulation studies available worldwide for children to 14 days, and no normal ranges. Heparin therapeutic range (represented by Anti-Factor Xa activity of 0.2 - 0.4 U/mL) corresponds to PTT of 56.6 - 109.0 sec. Performed By: #### 2 179897, 3280923, 9058587, 1668122, 2158387, 8859115, 2892652, 74556800, 66900062 ####[facility] [address] [place] [address] INR Coag (PPP) [Relative time] 1.0 {INR} Invalid Interpretation Code [facility] Comment on above: Result Comment: INR results are specifically intended to assess patients stabilized on long-term Anticoagulation therapy suggested INR?s ?Less Intensive Anticoagulation? 2.0 ? 3.0 Conventional Range 3.0 ? 4.5 Performed By: #### 2 508169, 8959354, 9318424, 7824140, 7844651, 4461568, 0419585, 03645767, 81794979 ####[facility] [address] [place] [address] PT Coag (PPP) [Time] 11.4 second(s) Normal 9.4-12.5 [facility] Comment on above: Result Comment: 15 [...] same coagulation reagent and instrumentation as [facility]. Currently there are no coagulation studies available worldwide for children to 14 days, and no normal ranges. Performed By: #### 2 510851, 5281133, 7891859, 6887590, 2969057, 4649981, 5849246, 27454240, 64315115 ####[facility] [address] [place] [address] Pre-Arrival Noteon 3 Pre-Arrival Note Pre-Arrival Summary Name: , Current Date: 08/24/2023 16:46:11 EDT Gender: Male Date of : Age: Pre-Arrival Type: EMS ETA: 08/24/2023 16:56:00 EDT Primary Care Physician: Presenting Problem: skilled nursing Pre-Arrival User: Gage Belcher Referring Source: Location: [place] Completion Date/Time: 08/24/2023 16:26:00 [facility] Emergency Department Pre-Hospital Report Form ___ Vital Signs: Pre-Hospital Report: Treatment in Route: Response to Treatment: Misc. Issues: Normal [facility] Troponinon 08-24-2023 Troponin I.cardiac [Mass/Vol] 5.60 pg/mL Low 15.90-38.40 [facility] Comment on above: Result Comment: The 95% CI (Confidence Interval) PPV (Positive Predictive Value) for myocardial infarction in females is 38 pg/mL, in males 51 pg/mL. The results should be used in conjunction with clinical conditions of myocardial infarction. (Access High Sensitivity Troponin I Instructions For Use, [employer], June 2018) Performed By: #### 2 331082, 3054925, 9476360, 2569072, 7470843, 8535843, 5547419, 37456133, 22299628 ####[facility] [address] [place] [address] Vaccinationson 08-24-2023 Vaccinations [id number]:127 Normal [facility] XR Hand 3+ Views Righton XR [...] mGy = na DAP = na Normal [facility] XR Wrist 3+ Views Righton XR [...] mGy = na DAP = na Normal [facility] eGFRon 08-24-2023 GFR/1.73 sq M.predicted among non-blacks MDRD (S/P/Bld) [Vol rate/Area] 75 mL/min/1.73 m2 Normal >=59 [facility] Comment on above: Order Comment: Order added by Discern Expert. Result Comment: Staffing Specialist sherwin kidney disease could be indicated at eGFR's of less than 60 mL/min/1.73m2. Kidney failure is indicated at less than 15 mL/min/1.73m2. Performed By: #### 2 622441, 2109760, 4182905, 4016601, 6410917, 8404719, 2823097, 00474857, 30065700 ####[facility] [address] [facility] [place] [address] INSULINon 01-01-2023 Insulin 87.3 uIU/mL Critically high 2.6-24.9 [facility] Comment on above: Performed By: #### I NSULIN #### [facility] [address] [address] [address] Izabela Diamond CBC AUTO DIFFon 12-31-2022 BASO # 0.0 103/ul Normal 0.0-0.1 [facility] Comment on above: Performed By: #### C BC #### [facility] [address] [address] [address] Izabela Diamond Basophils/100 WBC (Bld) 0.2 % Normal 0.2-2.0 [facility] Comment on above: Performed By: #### C BC #### [facility] [address] [address] [address] Izabela Diamond EO # 0.3 103/ul Normal 0.0-0.7 [facility] Comment on above: Performed By: #### C BC #### [facility] [address] [place] [address] Dr. Izabela Diamond Eosinophils/100 WBC (Bld) 3.2 % Normal 0.9-7.0 [facility] Comment on above: Performed By: #### C BC #### [facility] [address] [place] [address] Dr. Izabela Diamond Erythrocyte distribution width (RBC) [Ratio] 13.5 % Normal 11.0-15.0 [facility] Comment on above: Performed By: #### C BC #### [facility] [address] [place] [address] Dr. Izabela Diamond Hematocrit (Bld) [Volume fraction] 48.1 % Normal 42.0-54.0 [facility] Comment on above: Performed By: #### C BC #### [facility] [address] [place] [address] Dr. Izabela Diamond Hemoglobin (Bld) [Mass/Vol] 15.4 g/dL Normal 14.0-18.0 [facility] Comment on above: Performed By: #### C BC #### [facility] [address] [place] [address] Dr. Izabela Diamond IG # 0.05 10e3/ul Critically high 0.00-0.03 [facility] Comment on above: Performed By: #### C BC #### [facility] [address] [place] [address] Dr. Izabela Diamond IG % 0.6 % Critically high 0.0-0.5 [facility] Comment on above: Performed By: #### C BC #### [facility] [address] [place] [address] Dr. Izabela Diamond LYMPH # 3.0 103/ul Normal 1.2-3.8 [facility] Comment on above: Performed By: #### C BC #### [facility] [address] [place] [address] Dr. Izabela Diamond Lymphocytes/100 WBC (Bld) 34.1 % Normal 20.5-60.0 [facility] Comment on above: Performed By: #### C BC #### [facility] [address] [place] [address] Dr. Izabela Diamond MANUAL DIFF REQ NO Normal [facility] Comment on above: Performed By: #### C BC #### [facility] [address] [place] [address] Dr. Izabela Diamond MCH (RBC) [Entitic mass] 30.6 pg Normal 25.9-34.0 [facility] Comment on above: Performed By: #### C BC #### [facility] [address] [place] [address] Dr. Izabela Diamond MCHC (RBC) [Mass/Vol] 32.0 g/dL Normal 29.9-35.2 [facility] Comment on above: Performed By: #### C BC #### [facility] [address] [place] [address] Dr. Izabela Diamond MCV (RBC) [Entitic vol] 95.6 fL Critically high 80.0-94.0 [facility] Comment on above: Performed By: #### C BC #### [facility] [address] [place] [address] Dr. Izabela Diamond MONO # 0.7 103/ul Normal 0.3-0.8 [facility] Comment on above: Performed By: #### C BC #### [facility] [address] [place] [address] Dr. Izabela Diamond Monocytes/100 WBC (Bld) 7.5 % Normal 1.7-12.0 [facility] Comment on above: Performed By: #### C BC #### [facility] [address] [place] [address] Dr. Izabela Diamond NEUT # 4.8 103/ul Normal 1.4-6.5 [facility] Comment on above: Performed By: #### C BC #### [facility] [address] [place] [address] Dr. Izabela Diamond Neutrophils/100 WBC (Bld) 54.4 % Normal 43.0-75.0 [facility] Comment on above: Performed By: #### C BC #### [facility] [address] [place] [address] Dr. Izabela Diamond Platelet mean volume (Bld) [Entitic vol] 10.5 fL Normal 9.5-13.5 [facility] Comment on above: Performed By: #### C BC #### [facility] [address] [place] [address] Dr. Izabela Diamond PLT 229 103/ul Normal 150-450 [facility] Comment on above: Performed By: #### C BC #### [facility] [address] [place] [address] Dr. Izabela Diamond RBC 5.03 106/ul Normal 4.70-6.10 [facility] Comment on above: Performed By: #### C BC #### [facility] [address] [place] [address] Dr. Izabela Diamond WBC 8.7 103/ul Normal 4.0-11.0 [facility] Comment on above: Performed By: #### C BC #### [facility] [address] [place] [address] Dr. Izabela Diamond FREE THYROXINE INDEX T7on FTI 2.84 Normal 1.30-4.50 [facility] Comment on above: Performed By: #### T SH, T7, CMP, LIPID, URIC #### [facility] [address] [place] [address] Dr. Izabela Diamond T3U 35.0 % Normal 33.0-40.0 [facility] Comment on above: Performed By: #### T SH, T7, CMP, LIPID, URIC #### [facility] [address] [address] [address] Izabela Diamond T4 [Mass/Vol] 8.10 ug/dL Normal 4.50-12.10 [facility] Comment on above: Performed By: #### T SH, T7, CMP, LIPID, URIC #### [facility] [address] [address] [address] Izabela Diamond GLYCOHEMOGLOBIN A1Con 2022 ADA RECOMMENDATION SEE BELOW Normal [facility] Comment on above: Result Comment: ADA RECOMMENDED LIMIT 4.0 - 6.0 ADA THERAPEUTIC TARGET < 7.0 ACTION SUGGESTED > 7.0 Performed By: #### A 1C #### [facility] [address] [place] [address] Dr. Izabela Diamond Glucose [Mass/Vol] 134 mg/dL Normal [facility] Comment on above: Performed By: #### A 1C #### [facility] [address] [place] [address] Dr. Izabela Diamond HbA1c (Bld) [Mass fraction] 6.3 % Critically high 4.5-6.2 [facility] Comment on above: Performed By: #### A 1C #### [facility] [address] [place] [address] Dr. Izabela Diamond LIPID PROFILEon 12-31-2022 CHOL-HDL RATIO NORM SEE BELOW Normal [facility] Comment on above: Result Comment: 3.3 - 4.4 LOW RISK 4.4 - 7.1 AVERAGE RISK 7.1 - 11.0 MODERATE RISK >11.0 HIGH RISK Performed By: #### T SH, T7, CMP, LIPID, URIC #### [facility] [address] [place] [address] Dr. Izabela Diamond Cholesterol [Mass/Vol] 167 mg/dL Normal <=200 [facility] Comment on above: Performed By: #### T SH, T7, CMP, LIPID, URIC #### [facility] [address] [place] [address] Dr. Izabela Diamond Cholesterol in HDL [Mass/Vol] 32 mg/dL Critically low 40-60 [facility] Comment on above: Performed By: #### T SH, T7, CMP, LIPID, URIC #### [facility] [address] [address] [address] Izabela Diamond Cholesterol in LDL [Mass/Vol] 108.4 mg/dL Normal [facility] Comment on above: Performed By: #### T SH, T7, CMP, LIPID, URIC #### [facility] [address] [address] [address] Izabela Diamond Cholesterol.total/Chol esterol in HDL [Mass ratio] 5.2 {ratio} Normal [facility] Comment on above: Performed By: #### T SH, T7, CMP, LIPID, URIC #### [facility] [address] [address] [address] Izabela Diamond HDL NORMAL > or = 60 mg/dl - LOW CARDIOVASCULAR RISK <40 mg/dl - HIGH CARDIOVASCULAR RISK Normal [facility] Comment on above: Performed By: #### T SH, T7, CMP, LIPID, URIC #### [facility] [address] [address] [address] Izabela Diamond LDL CALC NORMAL SEE BELOW Normal [facility] Comment on above: Result Comment: <100 mg/dl OPTIMAL 100 - 129 mg/dl NEAR OR ABOVE OPTIMAL 130 - 159 mg/dl BORDERLINE HIGH 160 - 189 mg/dl HIGH >190 mg/dl VERY HIGH Performed By: #### T SH, T7, CMP, LIPID, URIC #### [facility] [address] [address] [address] Izabela Diamond Triglyceride [Mass/Vol] 133 mg/dL Normal <=150 [facility] Comment on above: Performed By: #### T SH, T7, CMP, LIPID, URIC #### [facility] [address] [address] [address] Izabela Diamond VLDL CALC 26.6 mg/dL Normal [facility] Comment on above: Performed By: #### T SH, T7, CMP, LIPID, URIC #### [facility] [address] [address] [address] Izabela Diamond PROF 14(COMP METB)on 023 Albumin [Mass/Vol] 3.4 g/dL Normal 3.4-5.[address] [facility] Comment on above: Performed By: #### T SH, T7, CMP, LIPID, URIC #### [facility] [address] [place] [address] Dr. Izabela Diamond Albumin/Globulin [Mass ratio] 0.8 {ratio} Normal [facility] Comment on above: Performed By: #### T SH, T7, CMP, LIPID, URIC #### [facility] [address] [place] [address] Dr. Izabela Diamond ALP [Catalytic activity/Vol] 77 U/L Normal 46-116 [facility] Comment on above: Performed By: #### T SH, T7, CMP, LIPID, URIC #### [facility] [address] [place] [address] Dr. Izabela Diamond ALT [Catalytic activity/Vol] 39 U/L Normal 16-63 [facility] Comment on above: Performed By: #### T SH, T7, CMP, LIPID, URIC #### [facility] [address] [address] [address] Izabela Diamond Anion gap [Moles/Vol] 12.1 mmol/L Normal [facility] Comment on above: Performed By: #### T SH, T7, CMP, LIPID, URIC #### [facility] [address] [place] [address] Dr. Izabela Diamond AST [Catalytic activity/Vol] 23 U/L Normal 15-37 [facility] Comment on above: Performed By: #### T SH, T7, CMP, LIPID, URIC #### [facility] [address] [address] [address] Izabela Diamond Bilirubin [Mass/Vol] 0.5 mg/dL Normal 0.2-1.0 [facility] Comment on above: Performed By: #### T SH, T7, CMP, LIPID, URIC #### [facility] [address] [place] [address] Dr. Izabela Diamond Calcium [Mass/Vol] 8.5 mg/dL Normal 8.5-10.[address] [facility] Comment on above: Performed By: #### T SH, T7, CMP, LIPID, URIC #### [facility] [address] [address] [address] Izabela Diamond Chloride [Moles/Vol] 103 mmol/L Normal 98-107 [facility] Comment on above: Performed By: #### T SH, T7, CMP, LIPID, URIC #### [facility] [address] [place] [address] Dr. Izabela Diamond CO2 [Moles/Vol] 27.8 mmol/L Normal 21.0-32.0 [facility] Comment on above: Performed By: #### T SH, T7, CMP, LIPID, URIC #### [facility] [address] [place] [address] Dr. Izabela Diamond Creatinine [Mass/Vol] 0.93 mg/dL Normal 0.70-1.30 [facility] Comment on above: Performed By: #### T SH, T7, CMP, LIPID, URIC #### [facility] [address] [place] [address] Dr. Izabela Diamond EGFR-AF IRAQI >60 Normal >=60 [facility] Comment on above: Performed By: #### T SH, T7, CMP, LIPID, URIC #### [facility] [address] [place] [address] Dr. Izabela Diamond EGFR-NON AF IRAQI >60 Normal >=60 [facility] Comment on above: Performed By: #### T SH, T7, CMP, LIPID, URIC #### [facility] [address] [place] [address] Dr. Izabela Diamond Globulin (S) [Mass/Vol] 4.3 g/dL Normal [facility] Comment on above: Performed By: #### T SH, T7, CMP, LIPID, URIC #### [facility] [address] [place] [address] Dr. Izabela Diamond Glucose [Mass/Vol] 131 mg/dL Critically high 74-106 [facility] Comment on above: Performed By: #### T SH, T7, CMP, LIPID, URIC #### [facility] [address] [place] [address] Dr. Izabela Diamond Potassium [Moles/Vol] 3.9 mmol/L Normal 3.5-5.1 [facility] Comment on above: Performed By: #### T SH, T7, CMP, LIPID, URIC #### [facility] [address] [place] [address] Dr. Izabela Diamond Protein [Mass/Vol] 7.7 g/dL Normal 6.4-8.2 [facility] Comment on above: Performed By: #### T SH, T7, CMP, LIPID, URIC #### [facility] [address] [place] [address] Dr. Izabela Diamond Sodium [Moles/Vol] 139 mmol/L Normal 136-145 [facility] Comment on above: Performed By: #### T SH, T7, CMP, LIPID, URIC #### [facility] [address] [place] [address] Dr. Izabela Diamond Urea nitrogen [Mass/Vol] 13.0 mg/dL Normal 7.0-18.0 [facility] Comment on above: Performed By: #### T SH, T7, CMP, LIPID, URIC #### [facility] [address] [place] [address] Dr. Izabela Diamond Urea nitrogen/Creatinine [Mass ratio] 14.0 mg/mg Normal [facility] Comment on above: Performed By: #### T SH, T7, CMP, LIPID, URIC #### [facility] [address] [place] [address] Dr. Izabela Diamond TSHon 12-31-2022 TSH 2.011 uIU/mL Normal 0.358-3.740 [facility] Comment on above: Performed By: #### T SH, T7, CMP, LIPID, URIC #### [facility] [address] [place] [address] Dr. Izabela Diamond URIC ACID SERUMon 12-31-2022 Urate [Mass/Vol] 5.5 mg/dL Normal 3.5-7.2 [facility] Comment on above: Performed By: #### T SH, T7, CMP, LIPID, URIC #### [facility] [address] [place] [address] Dr. Izabela Diamond Vital Signs Date Time Vital Sign Value Performing Clinician Tr lugo 08-24-2023 18:00-0400 Diastolic blood pressure 94 mm[Hg] Partha Tidwelle [facility] 08-24-2023 18:00-0400 Heart rate 80 /min Partha Tidwelle [facility] 08-24-2023 18:00-0400 Mean blood pressure 130 mm[Hg] Partha Tidwelle [facility] 08-24-2023 18:00-0400 Respiratory rate 16 /min Partha Tidwelle [facility] 08-24-2023 18:00-0400 SaO2% (BldA) [Mass fraction] 100 % Partha Tidwelle [facility] 08-24-2023 18:00-0400 Systolic blood pressure 201 mm[Hg] Partha Tidwelle [facility] 08-24-2023 17:03-0400 Body temperature 98.06 [degF] Partha Tidwelle [facility] 08-24-2023 17:03-0400 Diastolic blood pressure 99 mm[Hg] Partha Tidwelle [facility] 08-24-2023 17:03-0400 Heart rate 87 /min Partha Tidwelle [facility] 08-24-2023 17:03-0400 Respiratory rate 20 /min Partha Tidwelle [facility] 08-24-2023 17:03-0400 SaO2% (BldA) [Mass fraction] 98 % Partha Tidwelle [facility] 08-24-2023 17:03-0400 Systolic blood pressure 179 mm[Hg] Partha Rico [facility] 08-24-2023 17:00-0400 Diastolic blood pressure 87 mm[Hg] Partha Rico [facility] 08-24-2023 17:00-0400 Heart rate 86 /min Partha Rico [facility] 08-24-2023 17:00-0400 Mean blood pressure 107 mm[Hg] Partha Rico [facility] 08-24-2023 17:00-0400 SaO2% (BldA) [Mass fraction] 99 % Partha Rico [facility] 08-24-2023 17:00-0400 Systolic blood pressure 146 mm[Hg] Partha Rico [facility] 08-24-2023 16:48-0400 Body temperature 98.24 [degF] Partha Rico [facility] 08-24-2023 16:48-0400 Heart rate 81 /min Partha Rico [facility] 08-24-2023 16:48-0400 Respiratory rate 18 /min Partha Rico [facility] Encounters Encounter Date Encounter Type Care Provider Facility Start: 10-16-2024 End: 10-19-2024 ambulatory [facility] Start: 04-10-2024 ambulatory [facility] Start: 01-03-2024 End: 01-03-2024 ambulatory [facility] Start: 11-22-2023 End: 11-22-2023 ambulatory [facility] Start: 08-24-2023 End: 08-24-2023 Emergency department patient visit Partha Rico [place] Start[place] 08-24-2023 End: 08-24-2023 Emergency department patient visit Partha Rico [facility] Start: 01-01-2023 Encounter for genera l adult medical examination without abnormal findings DR CINDI CORONADO [facility] Start: 12-31-2022 End: 01-01-[address] CINDI CORONADO Facility:[facility] Start: 12-31-2022 End: 01-01-2023 Encounter for general adult medical examination without abnormal findings DR CINDI CORONADO Facility:[facility] Start: 06-19-[address] RENUKA Tang ty:[facility] Start: 06-15-[address] RENUKA [facility] Procedures Date Procedure Procedure Detail Performing Clinician Start: 12-31-[address] RENUKA SARGENT Comment on above: Performed By: #### [facility] #### [facility] [address] [place] [address] Dr. Izabela Diamond None (qualifier value) Partha Rico Immunizations Immunization Date Immunization Notes Care Provider Fa cility 08-24-2023 tetanus toxoid, redu salud diphtheria toxoid, and acellular pertussis vaccine, adsorbed Partha Rico [facility] Comment on above: Early/Late Reason: E olga lidia/Late Reason: Nursing Judgment Payers Date Payer Category Payer Unknown [id number] 1975 Unknown [id number] 1975 Unknown [id number] 1975 Unknown [id number] 1975 Unknown [id number] 1959 Private Health Insurance [id number] Social History Date Type Detail Facility Start: 07-06-2020 Tobacco smoking status Never s moked tobacco (finding) [facility] Sex Assigned At Male [facility] Functional Status Date Assessment Result Facility 08-24-2023 Functional Status N/A [facility] Progress note 10-16-2024 Note Date & Type Note Facility 10-16-2024 Note [facility] CARDIOL OGY PROGRESS NOTE HPI: Ehsan Brumfield is a 49 y.o. male with a past medical history including HTN, HLD, CAROL, and CAD s/p PCI of OM1 and PCI of LAD. He presents today for follow up. Patient here for 6 mo follow up CAD, HFpEF, hypertension, and hyperlipidemia. No recent labs/imaging. C/o worsening MOISE, and has gained 20# since last visit in March 2024. LE edema is no more than usual for him. He does also complain of occasional chest pain. Chest pain is atypical in nature. It can occur both at rest and with exertion, and is not necessarily worsened with exertion. PMH: HTN uncontrolled, HPL, CAROL, obesity PSH: no pertinent cardiac FMH: Mother DM and HTN- r/t biliary CA, Father r/t renal cell CA, Sister DM Social: never a smoker, Alcohol-beer- 6 beers on weekends, Illicit drug use- denied Cardiology ROS: Review of Systems Constitutional: Positive for weight gain (20# since March 2024). Cardiovascular: Positive for chest pain, dyspnea on exertion and leg swelling. Musculoskeletal: Positive for arthritis, back pain, joint pain, myalgias and neck pain. Neurological: Positive for headaches. All other systems reviewed and are negative. Visit Vitals Smoking Status Never No Known Allergies Medications: Current Outpatient Medications [...] and take 1.5 tablets in the evening (Patient taking differently: Take 1 tablet in the aftermoon, and take 1.5 tablets in the evening) 270 tablet 3 celecoxib (CeleBREX) 100 mg capsule 1 (one) time each day at the same time. cloNIDine (Catapres) 0.2 mg tablet Take 0.2 mg by mouth at bedtime. furosemide (Lasix) 40 mg tablet TAKE 1 TABLET BY MOUTH EVERY DAY IN THE MORNING 90 tablet 3 irbesartan (Avapro) 300 mg [...] breakfast. Do not crush, chew, or split. (Patient not taking: Reported on 04/10/2024) 90 tablet 3 sildenafil (Viagra) 100 mg tablet 1 (one) time each day at the same time. spironolactone (Aldactone) 25 mg tablet TAKE 1 TABLET BY MOUTH EVERY DAY IN THE MORNING 90 tablet 3 ticagrelor (Brilinta) 90 mg tablet Take 1 tablet (90 mg) by mouth two times daily. 180 tablet 3 No current facility-administered medications [...] balloon angioplasty and NA placement -Ultrasound-guided vascular (more content not included)... [facility] Progress note 04-10-2024 Note Date & Type Note Facility 04-10-2024 Note [facility] CARDIOL OG PROGRESS NOTE HPI: Ehsan Brumfield is a 48 y.o. male with a past medical history including HTN, HLD, CAROL, and CAD s/p PCI of OM1 and PCI of LAD. He presents today for follow up. Patient here for 3 mo follow up CAD, HFpEF, hypertension, and hyperlipidemia. Had routine labs w/ lipid panel 2 weeks ago. Says he had a few episodes of hypotension w/ lightheadedness since last visit, but this has decreased in frequency. Usually BP is pretty decent he says. Recently stopped isosorbide and doesn't feel different without it. No anginal chest pain. Shortness of breath has improved. No lower extremity edema or orthopnea. PMH: HTN uncontrolled, HPL, CAROL, obesity PSH: no pertinent cardiac FMH: Mother DM and HTN- r/t biliary CA, Father r/t renal cell CA, Sister DM Social: never a smoker, Alcohol-beer- 6 beers on weekends, Illicit drug use- denied Cardiology ROS: 10 point ROS is performed and is negative unless otherwise specified in HPI. Visit Vitals Smoking Status Never No Known Allergies Medications: Current Outpatient Medications [...] breakfast. Do not crush, chew, or split. 90 tablet 3 sildenafil (Viagra) 100 mg tablet 1 (one) [...] balloon angioplasty and drug-eluting stent placement in (more content not included)... [facility] Progress note 01-03-2024 Note Date & Type Note Facility 01-03-2024 Note Patient here c/o michelle vated BP lately. Sometimes doesn't take the entire 18.75mg of carvedilol in the evenings if his BP is normal . Sometimes will only take 12.5mg in the evenings. He's taking clonidine once daily, instead of twice. Feels like shit when BP is low AND elevated. [facility] Progress note 02-09-2024 Note Date & Type Note Facility 01-03-2024 [...] by 70% st (more content not included)... [facility] Progress note 11-22-2023 Note Date & Type Note Facility 11-22-2023 Note Patient here for fol low up PCI LAD. He was switched from Plavix to Brilinta. Chest pain has resolved. [facility] Progress note 11-22-2023 Note Date & Type Note Facility 11-22-2023 Note [facility] CARDIOLOGY PROGR ESS NOTE [...] the upper branch. (more content not included)... 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
[2024-10-20 08:09] LABS: Basophils Percent Auto 0.3 % (0.2-2.0); Eosinophils Absolute Auto 0.3 10^3/uL (0.0-0.7); Eosinophils Percent Auto 2.6 % (0.9-7.0); Hematocrit 37.7 % (42.0-54.0); Hemoglobin 12.7 g/dL (14.0-18.0); Immature Granulocytes Abs Auto 0.08 10^3/uL (0.00-0.03); Immature Granulocytes Pct Auto 0.8 % (0.0-0.5); Lymphocytes Absolute Auto 3.1 10^3/uL (1.2-3.8); Mean Corpuscular HGB Conc 33.7 g/dL (29.9-35.2); Mean Corpuscular Hemoglobin 32.5 pg (25.9-34.0); Mean Corpuscular Volume 96.4 fL (80.0-94.0); Mean Platelet Volume 11.4 fL (9.5-13.5); Neutrophils Absolute Auto 5.5 10^3/uL (1.4-6.5); Neutrophils Percent Auto 55.3 % (43.0-75.0); Platelet Count 206 10^3/uL (150-450); Red Blood Count 3.91 10^6/uL (4.70-6.10); Red Cell Distribution Width 12.8 % (11.0-15.0); White Blood Count 9.9 10^3/uL (4.0-11.0)
[2024-10-20 09:25] LABS: Alanine Aminotransferase 35 U/L (16-63); Albumin Globulin Ratio 0.9; Albumin Level 3.2 g/dL (3.4-5.0); Alkaline Phosphatase 63 U/L (46-116); Aspartate Amino Transferase 18 U/L (15-37); BUN Creatinine Ratio 16.7; Bilirubin Total 0.7 mg/dL (0.2-1.0); Calcium 8.5 mg/dL (8.5-10.1); Carbon Dioxide 25.4 mmol/L (21.0-32.0); Chol HDL Ratio 3.7; Cholesterol 121 mg/dL (<=200); Estimated GFR (African America >60 (>=60 mL/min/1.73m^2); Estimated GFR (Non-African Ame >60 (>=60 mL/min/1.73m^2); Globulin 3.7 g/dL; Glucose 110 mg/dL (74-106); HDL Cholesterol 33 mg/dL (40-60); Total Protein 6.9 g/dL (6.4-8.2); Triglycerides 129 mg/dL (<=150); VLDL CHOLESTEROL 25.8 mg/dL
[2024-10-20 09:38] LABS: Anion Gap 14.7; Chloride 105 mmol/L (98-107); Potassium 4.1 mmol/L (3.5-5.1); Sodium 141 mmol/L (136-145)
== END 2024-10-20 06:48 | disposition home or self-care (01) ==
LOC: LAB 06:49
PROVIDERS: PCP Family Medicine; Visit Provider Internal Medicine Cardiovascular Disease
DX: R06.09 Other forms of dyspnea (principal); E78.2 Mixed hyperlipidemia
CPT/HCPCS: 36415; 80053; 80061; 85025

== ENCOUNTER 2024-10-23 07:10 | Outpatient (OUT) | payer OTHER, SELFPAY ==
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
--- NOTE | 2024-10-23 08:30 | CA_ITS ---
Patient Name: GEO CAPPS MR#: [id number] : 1975 Exam Date: 10/23/2024 Ordering Doctor: ISRAEL BLAIR M.D. ECHOCARDIOGRAM REPORT PROCEDURE: CA ECHO DOPPLER COMPLETE INDICATIONS: Dyspnea on exertion, chest pain, cardiac stents, hypertension COMPARISON: None. DESCRIPTION: COMPLETE ECHOCARDIOGRAM Real-time transthoracic echocardiography with 2D, M-mode, spectral and color flow Doppler performed. QUALITY: Technical quality was good. LEFT VENTRICLE: Normal chamber size. Moderate concentric left ventricular hypertrophy. Normal systolic function. LV EF: Normal left ventricular ejection fraction, (>55%). DIASTOLIC: Normal diastolic function. ATRIAL SEPTUM: Visually appears intact. LEFT ATRIUM: Normal chamber size. RIGHT ATRIUM: Normal chamber size. RIGHT VENTRICLE: Normal chamber size. Normal right ventricular systolic function. TRICUSPID VALVE: Normal mobility and thickness. No stenosis with trivial regurgitation. No evidence of pulmonary hypertension. RVSP 31 mmHg MITRAL VALVE: Normal mobility and thickness. No evidence of mitral valve stenosis. There is no mitral annular calcification. No mitral regurgitation. AORTIC VALVE: Normal trileaflet appearance. No visible sclerosis. Normal leaflet mobility. No evidence of aortic valve stenosis. No aortic regurgitation. AORTIC ROOT: Normal diameter and appearance. Ascending aorta is normal in size. PULMONIC VALVE: Normal thickness and mobility. No stenosis. No regurgitation. PERICARDIUM: No evidence of pericardial effusion. IVC: Collapses with inspirations. IVC is dilated (2.2 cm) PLEURA: CONCLUSION: 1. Moderate concentric left ventricular hypertrophy with normal systolic function. LVEF is estimated at 55 to 60%. 2. Normal right ventricular size and systolic function. 3. Normal diastolic function. 4. No significant valvular dysfunction. 5. Normal right-sided pressures. Adult Echocardiography Procedure Report Left Ventricle LVEDD (3.7 - 5.6 cm): 4.88 cm LVESD (2.2 - 4.0 cm): 3.23 cm LVIVS thickness (0.6 - 1.2 cm): 1.62 cm LVPW thickness (0.5 - 1.0 cm): 1.32 cm e': 0.13 m/s E - e': 8.75 LVOT Max Gradient: 6.12 mm[Hg] LVOT Area (cm2): 1.24 m/s Peak Velocity (LVOT): 1.24 m/s Mean Velocity (LVOT): 0.76 m/s LVOT Diameter 2.33 cm Left Atrium LA Volume Index (2D A2C): 25.55 ml/m2 Left Atrium Systolic Dimension: 3.64 cm Mitral Valve MV E to A Ratio: 1.41 Mitral Valve A-Wave Peak Velocity: 0.83 m/s Mitral Valve E-Wave Peak Velocity: 1.17 m/s Right Ventricle Aorta AO Root Diam: 3.27 cm Ascending Ao Diam: 3.17 cm Aortic Valve AoV Area (Peak Judd): 2.86 cm2, 2.86 cm2 AoV Area (VTI): 2.66 cm2, 2.66 cm2 Peak Velocity(Antegrade Flow): 1.83 m/s Peak Gradient(Antegrade Flow): 13.47 mm[Hg] Mean Velocity(Antegrade Flow): 1.24 m/s Mean Gradient(Antegrade Flow): 7.03 mm[Hg] Velocity Time Integral: 41.76 cm Tricuspid Valve Peak Velocity (Regurgitant Flow): 2.37 m/s Pulmonic Valve Mean Gradient: 2.88 mm[Hg] Mean Velocity: 0.77 m/s Peak Velocity: 1.24 m/s, 0.95 m/s Peak Gradient: 3.59 mm[Hg], 6.16 mm[Hg] Right Atrium Right Atrium Systolic Pressure: 38.30 ml, 38.30 ml Dictated by: Thaddeus Negrete M.D. on 10/23/2024 at 14:46 Approved by: Thaddues Negrete M.D. on 10/23/2024 at 15:10
== END 2024-10-23 07:11 | disposition home or self-care (01) ==
LOC: NM 07:11
PROVIDERS: PCP Family Medicine; Visit Provider Internal Medicine Cardiovascular Disease
DX: R07.89 Other chest pain (principal); R06.09 Other forms of dyspnea
CPT/HCPCS: 78452; 93306; A9500

== ENCOUNTER 2024-10-30 08:30 | Outpatient (OUT) | payer OTHER, SELFPAY ==
--- NOTE | 2024-10-30 08:30 | PCN_ITS ---
CARDIAC STRESS TEST ? Requesting Physician:? Karen Aggie Procedure Date:? 10/30/2024 ? ? LEXISCAN STRESS TEST ? INDICATION FOR THE TEST:? Dyspnea on exertion. ? The test was discussed with the patient, including risks and benefits, and he is agreeable to proceed. ? Resting heart rate 70 beats per minute and resting blood pressure 144/81 mm/Hg.? Peak heart rate 91 beats per minute and peak blood pressure 144/81 mm/Hg. ? Patient received 0.4 mg of IV Lexiscan.? He had some headache, which resolved within 4 minutes.? He did not have any chest pain or shortness of breath. ? Baseline EKG showed sinus rhythm, normal EKG.? EKG throughout the test did not show any significant T or ST changes or any arrhythmias. ? CONCLUSION: 1.? Negative Lexiscan EKG stress test for ischemia. 2.? The nuclear perfusion images results will be reported separately by Radiology. ? ? Pamela Mitchell M.D., FACInocencia LARES/cristina FOSTER
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
[2024-10-30] MEDS: REGADENOSON 0.4 MG/5 ML SYRINGE IV (09:05)
--- NOTE | 2024-10-30 09:16 | PC.NURSE ---
Nursing Note Cardiac Stress Test Reviewed: Medication, allergies and patient history reviewed. Stress Test: [x ] Patient tolerated stress test well. [ ] Patient unable to tolerate walking on treadmill. Switched to Lexiscan stress test. [ x] No chest pain noted per patient [ ] Chest pain that resolved prior to leaving stress lab. [x ] No dyspnea noted. [ ] Dyspnea that resolved prior to leaving stress lab. [ x] Patient left stress lab asymptomatic and hemodynamically stable. [ ] Patient taken to the Emergency Room due to non-resolving symptoms following stress test. [ ] Patient achieved target heart rate. [ ] Patient unable to achieve target heart rate. [ ] Aminophylline administered as reversal agent to Lexiscan (Regadenoson). [ ] Nitro administered. Nursing Comments:Pt had Lexiscan done. Tolerated well no chest pain or SOB noted. Pt had headache initially after osmar was given but this resolved within 4 minutes after given. Ambulated unassisted to cafeteria following test.
== END 2024-10-30 08:31 | disposition home or self-care (01) ==
LOC: CARD 08:31
PROVIDERS: PCP Family Medicine; Visit Provider Internal Medicine Cardiovascular Disease
DX: R07.89 Other chest pain (principal); R06.09 Other forms of dyspnea
CPT/HCPCS: 93017; J2785

== ENCOUNTER 2024-11-20 07:18 | Outpatient (OUT) | payer OTHER, SELFPAY ==
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
[2024-11-20 07:39] LABS: Basophils Percent Auto 0.1 % (0.2-2.0); Eosinophils Absolute Auto 0.2 10^3/uL (0.0-0.7); Eosinophils Percent Auto 2.4 % (0.9-7.0); Hematocrit 39.4 % (42.0-54.0); Hemoglobin 13.2 g/dL (14.0-18.0); Immature Granulocytes Abs Auto 0.07 10^3/uL (0.00-0.03); Immature Granulocytes Pct Auto 0.7 % (0.0-0.5); Lymphocytes Absolute Auto 3.1 10^3/uL (1.2-3.8); Lymphocytes Percent Auto 31.6 % (20.5-60.0); Mean Corpuscular HGB Conc 33.5 g/dL (29.9-35.2); Mean Corpuscular Volume 95.6 fL (80.0-94.0); Monocytes Absolute Auto 0.9 10^3/uL (0.3-0.8); Monocytes Percent Auto 8.9 % (1.7-12.0); Neutrophils Absolute Auto 5.6 10^3/uL (1.4-6.5); Neutrophils Percent Auto 56.3 % (43.0-75.0); Platelet Count 202 10^3/uL (150-450); Red Blood Count 4.12 10^6/uL (4.70-6.10); Red Cell Distribution Width 12.5 % (11.0-15.0); White Blood Count 9.9 10^3/uL (4.0-11.0)
[2024-11-20 07:50] LABS: Anion Gap 13.2; BUN Creatinine Ratio 24.7; Calcium 8.6 mg/dL (8.5-10.1); Carbon Dioxide 26.4 mmol/L (21.0-32.0); Chloride 105 mmol/L (98-107); Estimated GFR (African America >60 (>=60 mL/min/1.73m^2); Estimated GFR (Non-African Ame 50 (>=60 mL/min/1.73m^2); Glucose 115 mg/dL (74-106); Potassium 4.6 mmol/L (3.5-5.1); Sodium 140 mmol/L (136-145)
== END 2024-11-20 07:19 | disposition home or self-care (01) ==
LOC: LAB 07:22
PROVIDERS: PCP Family Medicine; Visit Provider Internal Medicine Cardiovascular Disease
DX: R07.89 Other chest pain (principal); I25.10 Atherosclerotic heart disease of native coronary artery without angina pectoris
CPT/HCPCS: 36415; 80048; 85025

== ENCOUNTER 2025-10-07 08:08 | Outpatient (OUT) | payer OTHER, SELFPAY ==
--- OUTSIDE RECORDS SUMMARY | 2025-09-27 15:30 | XMS_ITS | Encounter Summary ---
Author Organization [facility] Address [address] [place] [address] Care Team Providers Care Digital Print Operator Name Role Phone Augustin Coronado MD Primary Care Provider [phone] Karen Marcial MD Unavailable Encounter Details DateTypeDepartmentCare Team (Latest Contact Info)Wijcojjwgos71/03/2025 3:30 PM ESTOffice Visit [facility] Heart at [address] [address] Thaddeus Negrete MD [address] [facility] [address] [place] [address] Coronary artery disease involving nome coronary artery of nome heart with other form of angina pectoris [...] file10/03/2023Sex and Gender InformationValueDate RecordedSex Assigned at UoghaTlek44/20/2023 12:06 PM EDTLegal JhnCvix4905/15/2023 9:58 AM EDT Gender FtiamcvhGiqu85/20/2023 12:06 PM EDTSexual OrientationHeterosexual or Hzisulmq65/20/2023 12:06 PM EDTdocumented as of this encounter Last Filed Vital Signs Vital SignReadingTime TakenCommentsBlood Gmfjsvfg658/7509/27/2025 4:03 PM EST Lffib690009/27/2025 4:03 PM ESTTemperature--Respiratory Rate--Oxygen Favekasyca38% 09/27/2025 4:03 PM ESTInhaled Oxygen Concentration--Ltdfqv484 kg (350 lb) 09/27/2025 4:03 PM YZPQkqzlk963.8 cm (5' 10 )09/27/2025 4:03 PM ESTBody Mass Index50.22111/27/2024 4:03 PM ESTdocumented in this encounter Functional Status * BPAnswerDate of SramdelwzzFnzykc448/7511 4:03 PM Keysha Hopkins MA * PulseAnswerDate of OsvanihcgmBcgwtq8551/03/2025 4:03 PM Keysha Hopkins MA * Patient PositionAnswerDate of AufanehulcJldsvoEjqyvvm02/03/2025 4:03 PM EST Keysha Sommers MA * BPAnswerDate of MrxbrnewbzRbziik693/7509/27/2025 4:03 PM Keysha Hopkins MA * PulseAnswerDate of WxascojqmwOwnypo0870/03/2025 4:03 PM Keysha Hopkins MA * GeM2AzspsyYuih of BcwyusojkjVddfuc0565/03/2025 4:03 PM Keysha Hopkins MA * BP LocationAnswerDate of AssessmentAuthorLeft arm09/27/2025 4:03 PM Keysha Zambrano MA * Patient PositionAnswerDate of RdyfdkqslwEalqysQzyxecf56/03/2025 4:03 PM Keysha Zambrano MA documented as of this encounter Progress Notes * Thaddeus Negrete MD - 09/27/2025 3:30 PM EST Images from the original note were not included. [place] [facility] Subjective Ehsan Brumfield is a [...] Rate 11/24/2024 63 Atrial Rate 11/24/2024 63 TN Interval 11/24/2024 160 QRS DURATION 11/24/2024 114 QT Interval 11/24/2024 422 QTC CALCULATION(BAZETT) 11/24/2024 431 P Meeker 11/24/2024 12 R-Meeker 11/24/2024 0 T Wave [place] 11/24/2024 7 POCT ACT 11/24/2024 362 (A) [...] for this visit: Coronary artery disease involving nome coronary artery of nome heart with other form of angina pectoris [...] Perfusion ImagingCardiac ServicesRoutine Coronary artery disease involving nome coronary artery of nome heart with other form of angina pectoris Expected: 09/27/2025 (Approximate), Expires: 09/27/2027documented as of this encounter Visit Diagnoses Diagnosis Coronary artery disease involving [place] coronary artery of nome heart with other form of angina pectoris- Primary Primary hypertension Unspecified essential hypertension Chronic diastolic congestive heart failure (CMS/HCC) Mixed hyperlipidemia Status post insertion of drug eluting coronary artery stent documented in this encounter Care Teams Team MemberRelationshipSpecialtyStart DateEnd Date Augustin Coronado MD [address] [facility] [address] [address] PCP - General05/24/23 Karen Marcial MD [address] [facility] [address] [place] [address] Wlpkpcqukc92/10/23documented as of this encounter
--- OUTSIDE RECORDS SUMMARY | 2025-10-07 08:11 | XMS_ITS | Clinical Summary ---
Author Organization [facility] Address [address] [facility], [address] [place] [address] Care Team Providers Care Environmental Laboratory Technician Name Role Phone Augustin Coronado MD Primary Care Provider [phone] Allergies No known active allergies Medications MedicationSigDispense QuantityRefillsLast FilledStart DateEnd DateStatus metoprolol tartrate (LOPRESSOR) 50 MG tablet Take 50 mg by mouth 2 times dailyActive DICLOFENAC PO Take 75 mg by mouthActive levothyroxine (SYNTHROID) 100 MCG tablet Take 100 mcg by mouth DailyActive Family History Medical HistoryRelationNameCommentsCancerFatherHigh Blood PressureFatherCancer MotherHeart DiseaseMotherHigh Blood PressureMotherRelationNameStatusComments FatherMother Social History Tobacco UseTypesPacks/DayYears UsedDateSmoking Tobacco: Never AssessedSmokeless Tobacco: NeverSex and Gender InformationValueDate RecordedSex Assigned at Not on fileLegal QgxUcob2603/16/2021 11:46 AM EDTGender IdentityNot on fileSexual OrientationNot on file Last Filed Vital Signs Vital SignReadingTime TakenCommentsBlood Pressure--Pulse--Hjqigiwjnyl98.1 ??C (97 ??F)05/19/2021 3:01 PM EDTRespiratory Rate--Oxygen Saturation--Inhaled Oxygen Concentration--Bhgboi087.2 kg (340 lb)05/19/2021 3:01 PM WFUQbwpku441.3 cm (5' 9 )05/19/2021 3:01 PM EDTBody Mass Index50.21005/19/2021 3:01 PM EDT Plan of Treatment Not on file Insurance Care Teams Team MemberRelationshipSpecialtyStart DateEnd Augustin Coronado MD [address] [id number] PCP - GeneralFamily Medicine05/19/21
--- OUTSIDE RECORDS SUMMARY | 2025-10-07 08:11 | XMS_ITS | Clinical Summary ---
Author Organization [facility] Address [address] [place] [address] Care Team Providers Care Rehabilitation Worker Name Role Phone Unavailable Primary Care Provider Unavailabl e Social History Tobacco UseTypesPacks/DayYears UsedDateSmoking Tobacco: Never AssessedSex and Gender InformationValueDate RecordedSex Assigned at BirthNot on fileLegal Sex Male02/06/2023 8:32 PM EDTGender IdentityNot on fileSexual OrientationNot on file Last Filed Vital Signs Vital SignReadingTime TakenCommentsBlood Zlqmayok067/55621 12:00 PM EDT Pulse--Temperature--Respiratory Rate--Oxygen Saturation--Inhaled Oxygen Concentration--Emcuuf046 kg (361 lb)06/04/2022 12:00 PM OCRDftsdg242.3 cm (5' 9 )06/04/2022 12:00 PM EDTBody Mass Index53.31006/04/2022 12:00 PM EDT Plan of Treatment Not on file Insurance
--- OUTSIDE RECORDS SUMMARY | 2025-10-07 08:12 | XMS_ITS | Clinical Summary ---
Author Organization [facility] Address [address] [place] [address] Care Team Providers Care [employer] Name Role Phone Augustin Coronado MD Primary Care Provider [phone] Karen Marcial MD Unavailable [phone] Allergies No known active allergies Medications MedicationSigDispense QuantityRefillsLast FilledStart DateEnd DateStatus cloNIDine (Catapres) 0.2 mg tablet Take 0.2 mg by mouth at bedtime.04/25/2023ctive levothyroxine (Synthroid, Levoxyl) 100 mcg tablet Take 100 mcg by mouth in the morning.02/22/2023ctive aspirin 81 mg EC tablet Take 81 mg by mouth in the morning.Active atorvastatin (Lipitor) 80 mg tablet Indications:Multiple vessel coronary artery diseaseTake 1 tablet (80 mg) by mouth in the morning. 30 tablet 11006/03/2023ctive Additional Information Patient taking differently:80 mg oralNightly, Reported on 09/27/2025 sildenafil (Viagra) 100 mg tablet 1 (one) time each day at the same time.Active nitroglycerin (Nitrostat) 0.[address] 0.4 mg under the tongue every 5 (five) minutes if needed for chest pain. Active ferrous sulfate 325 (65 Fe) MG tablet Take 325 mg by mouth 2 times daily.08/09/2024ctive tiZANidine (Zanaflex) 4 mg tablet Take 4 mg by mouth if needed for muscle spasms.02/12/2024ctive ranolazine (Ranexa) 500 mg 12 hr tablet Indications:Coronary artery disease involving ekwok coronary artery of ekwok heart without angina pectorisTake 1 tablet (500 mg) by mouth two times daily. Do not crush, chew, or split. 180 tablet ctive Additional Information Patient not taking.Reported on 09/27/2025 ticagrelor (Brilinta) 90 mg tablet Indications:Unstable angina (CMS/HCC)Take 1 tablet (90 mg) by mouth two times daily. 180 tablet /ctive carvedilol (Coreg) 12.5 mg tablet Indications:Multiple vessel coronary artery diseaseTAKE 1 TABLET BY MOUTH EVERY MORNING AND 1 & 1/2 TABLETS EVERY EVENING 270 tablet 5Active Additional Information Patient taking differently: 6.25 MORNING AND 6.25 Evening, Reported on 09/27/2025 furosemide (Lasix) 40 mg tablet Indications:Multiple vessel coronary artery diseaseTake 1 tablet (40 mg) by mouth in the morning. 90 tablet tive ezetimibe (Zetia) 10 mg tablet Indications:Coronary artery disease involving ekwok coronary artery of ekwok heart without angina pectoris,Mixed hyperlipidemiaTake 1 tablet (10 mg) by mouth in the evening. 90 tablet ctive spironolactone (Aldactone) 25 mg tablet Indications:Benign hypertensive heart disease without congestive heart failure Take 1 tablet (25 mg) by mouth in the morning. 90 tablet ctive ranolazine (Ranexa) 500 mg 12 hr tablet Indications:Chest pain, unspecified typeTake 1 tablet (500 mg) by mouth two times daily. Do not crush, chew, or split. 180 tablet ctive pantoprazole (ProtoNix) 40 mg EC tablet Indications:Coronary artery disease involving ekwok coronary artery of ekwok heart without angina pectorisTake 1 tablet (40 mg) by mouth before breakfast. Do not crush, chew, or split. 90 tablet /ctive irbesartan (Avapro) 300 mg tablet Indications:Multiple vessel coronary artery diseaseTake 1 tablet (300 mg) by mouth once daily as directed. 90 tablet 5Active Active Problems ProblemNoted DateDiagnosed DatePain in limb09/27/2025bnormal stress test 11/03/2024Other chest pain11/03/2024oronary artery jaeutwz8111/03/2024cute frontal iaeixmtie96nkle edemanxiety ervical disc ioygypzy62halazion hest pain at restOVID-19111/22/2023utaneous skin tagsepression with anxiety iabetes mellitus without awgskwpbiphp66 Head okiacwrwi30Healthy adultHypertension HypothyroidImpacted offytjs0811/22/2023Inflamed seborrheic fypwgysws86Major depressive disorder, single episode, hhbsceamilb14Neoplasm of uncertain behavior of skin of faceerforation of tympanic membrane Otitis sjnndnt69ain of lumbar spine eripheral efkofpq35haryngitis11/22/2023 11/22/2023Radial styloid fvbjmouzspryq02Right lower quadrant painShoulder impingement vrtxqrft62Sprain of kneeoronary artery disease due to calcified coronary lwekjf6010/03/2023oronary artery disease due to lipid rich fzsbjw0309/17/2023 Abnormal cardiovascular stress test06/ Assessment & Plan (05/24/2023 2:45 PM EDT): Orders for cardiac cath Reviewed stress test and echocardiogram results with patient and his Unstable bdphky4105/24/2023 Assessment & Plan (05/24/2023 2:43 PM EDT): With unstable angina with exertion, Abnormal stress test with reversible anterior defect- LAD distribution Uncontrolled hypertension, hyperlipidemia, morbid obesity and elevated A1c ASCVD 9.8% 10 year risk or 1.7% risk with optimal medication Therefore Lipitor 40 mg initiated with LDL 108 Benign essential HTN05/24/2023 Assessment & Plan (05/24/2023 2:44 PM EDT): Hypertension is 146/95 Only uncontrolled on max dose of irbesartan, clonidine 0.2 mg 3 times daily, and metoprolol 100 mg twice daily with Imdur 60 mg daily We will add hydrochlorothiazide 25 mg to regimen Plan on cardiac cath next week and repeat lab work prior to cath-To assess CBC and BMP for renal function Mixed cvfxrxurteezhn64/30/2023 Assessment & Plan (05/24/2023 2:43 PM EDT): Elevated LDL therefore start Lipitor 40 mg daily Discussed with patient to call office for myalgias, muscle aches joint aches that worsen he voiced understanding Repeat liver function and lipid profile in 2 to 3 months Elevated hemoglobin A1c05/24/2023 Assessment & Plan (05/24/2023 2:45 PM EDT): Recommended diet and lifestyle changes that would include regular exercise and weight loss Morbid obesity with BMI of 45.0-49.9, adult05/24/2023 Assessment & Plan (05/24/2023 2:45 PM EDT): Recommended weight CAROL (obstructive sleep apnea)05/24/2023 Assessment & Plan (05/24/2023 2:46 PM EDT): Follow-up with PCP Encounters DateTypeDepartmentCare AmszUqbkbuwsuuw06/03/2025 3:30 PM ESTOffice Visit [facility] [address] [place] [address] Thaddeus Negrete MD Coronary artery disease involving ekwok coronary artery of ekwok heart with other form of angina pectoris (Primary Dx); Primary hypertension; Chronic diastolic congestive heart failure (CMS/HCC); Mixed hyperlipidemia; Status post insertion of drug eluting coronary artery stentfrom Last 3 Months Family History Medical HistoryRelationNameCommentsCancerFatherHypertensionFatherHeart attack Maternal GrandfatherCancerMotherRelationNameStatusCommentsBrotherAliveFather DeceasedMaternal GrandfatherMotherDeceasedSisterAlive Social History Tobacco UseTypesPacks/DayYears UsedDateSmoking Tobacco: NeverSmokeless Tobacco: Never Tobacco Cessation:Counseling Given: Not Answered Alcohol UseStandard Drinks/WeekCommentsYes0 (1 standard drink = 0.6 oz pure alcohol)occasionalHumiliation, Afraid, Rape, and Kick questionnaireAnswerDate RecordedWithin the last year, have you been afraid of your partner or ex-partner?No10/03/2023Emotionally AbusedNot on file10/03/2023hysically Abused Not on file10/03/2023Sexually AbusedNot on file10/03/2023Overall [...] file10/03/2023Sex and Gender InformationValueDate RecordedSex Assigned at GbnjeBvlv81/20/2023 12:06 PM EDTLegal TqdTpux3105/15/2023 9:58 AM EDT Gender ZahmkaxlLntm78/20/2023 12:06 PM EDTSexual OrientationHeterosexual or Umlegguh71/20/2023 12:06 PM EDT Last Filed Vital Signs Vital SignReadingTime TakenCommentsBlood Hvefqpyx247/7509/27/2025 4:03 PM EST Imgdt005409/27/2025 4:03 PM IANCaurizoboyx32.8 ??C (98.2 ??F)10/04/2023 7:40 AM ESTRespiratory Fhyp3029 2:30 PM ESTOxygen Ctrmczghzy70%09/27/2025 4:03 PM ESTInhaled Oxygen Concentration--Aynbdl180 kg (350 lb)09/27/2025 4:03 PM EST Aktxhn685.8 cm (5' 10 )09/27/2025 4:03 PM ESTBody Mass Index50. 4:03 PM EST Plan of Treatment Health MaintenanceDue DateLast DoneCommentsCT Uvovxjrqydcb1975Colonoscopy 1975Colorectal Cancer Zhunfqjzv1975Diabetes: Hemoglobin A1C 1975FIT-DNA1975FIT1975FOBT1975 4251Akfulxbzojpts1975 Diabetes: Retinopathy Fevkspvsq87/26/1985Depression Dhvmrzbym67/26/1987Diabetes: Urine Protein Fpaclhxtj03/26/1994Hepatitis B Vaccines (1 of 3 - 19+ 3-dose series)1994Pneumococcal Vaccine: Pediatrics (0 to 5 Years) and At-Risk Patients (6 to 64 Years) (1 of 2 - PCV)1994Zoster Vaccines (1 of 2) 5COVID-19 Vaccine (1 - season)2025Influenza Vaccine (#1) 5Adult Hhatjph52HIB VaccinesAged OutNo longer eligible based on patient's age to complete this topicHPV VaccinesAged OutNo longer eligible based on patient's age to complete this topicIPV VaccinesAged OutNo longer eligible based on patient's age to complete this topicMeningococcal B VaccineAged OutNo longer eligible based on patient's age to complete this topicMeningococcal VaccineAged OutNo longer eligible based on patient's age to complete this topicRotavirus VaccinesAged OutNo longer eligible based on patient's age to complete this topic Medical Devices ImplantedTypeAreaManufacturerDevice IdentifierShelf Expiration DateModel / Serial / LotStent,Synergy Xd Mr 2.5 X48mm - [id number] Implanted:Qty: 1 on 10/03/2023 [facility] [id number] / / [id number],Synergy Xd Mr 3.11n30hg - [id number] Implanted:Qty: 1 on 10/03/2023 by [facility] [id number] / / [id number],Synergy Michele,Michael 4.5x20m - [id number] Implanted:Qty: 1 on 06/03/2023 by [facility] [id number] / / [id number] Insurance Advance Directives * Full Code (Latest Code Status on File) Date ActivatedDate AooymincqnoNlnnyvdg49/9/2023 11:39 AM10/04/2023 1:20 PM * Full Code Date ActivatedDate XczinbknhidWcbeuanw00/9/2023 11:32 AM10/03/2023 11:39 AM Care Teams Team MemberRelationshipSpecialtyStart DateEnd Date Augustin Coronado MD [address] [facility] [address] [address] PCP - General05/24/23 Karen Marcial MD [address] [facility] [address] [place] [address] Mkfygxxcrt11/10/23
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
--- NOTE | 2025-10-07 08:20 | NM_ITS ---
Patient Name: GEO CAPPS MR#: [id number] : 1975 Exam Date: 10/07/2025 Ordering Doctor: DR BRAYDEN SHEARER M.D. RADIOLOGY REPORT PROCEDURE: NM KAILEE PERF SPECT REST STR COMPARISON: None. INDICATIONS: CORONARY ARTERY DISEASE TECHNIQUE: Exam Description: Stress/Rest two day protocol gated SPECT Rest Imagin.0 mCi Tc-99m Cardiolite IV on 10/08/2025 Stress Imaging 24.8 mCi Tc-99m Cardiolite IV on 10/07/2025 Exercise Protocol: 0.4 mg Lexiscan given IV Heart Rate (bpm): Rest: 75 Max: 97 PMHR: 57 Blood Pressure: Rest: 144/88 Max: 146/90 Symptoms: Rest and peak stress ECG findings were pending and the exercise portion of the study was pending per attending physician [facility] . For more details please see separate cardiac stress test report. FINDINGS: QUALITY OF STUDY: Fair PERFUSION DEFECT: LOCATION: Mid and apical anterior segments SIZE: Medium SEVERITY: Moderate TYPE: Partial reversibility WALL MOTION: Normal LV SIZE:EDV 128 mL. TID / TCD: 1.1 LVEF: Calculated EF 73%. SUMMARY: Abnormal myocardial perfusion imaging study CONCLUSION: Abnormal myocardial perfusion stress images revealing evidence of the mid and apical ischemia Normal left ventricle systolic function, ejection fraction 73% No evidence of transient ischemic dilatation, TID 1.1 EKG portion of stress test is reported separately Dictated by: Pamela Mitchell MD on 10/11/2025 at 17:13 Approved by: Pamela Mitchell MD on 10/11/2025 at 17:19
--- NOTE | 2025-10-07 08:58 | PC.NURSE ---
Patient tolerated Lexiscan stress test without problems. Experienced SOB after Lexiscan infusion, which resolved prior to leaving the stress lab. Denied any other symptoms.
[2025-10-07] MEDS: REGADENOSON 0.4 MG/5 ML SYRINGE IV (09:02)
== END 2025-10-07 08:09 | disposition home or self-care (01) ==
LOC: CARD 08:08
PROVIDERS: PCP Family Medicine; Visit Provider Internal Medicine Interventional Cardiology
DX: I25.118 Atherosclerotic heart disease of native coronary artery with other forms of angina pectoris (principal)
CPT/HCPCS: 78452; 93017; A9500; J2785

== ENCOUNTER 2025-10-08 06:54 | Outpatient (OUT) | payer OTHER, SELFPAY ==
--- OUTSIDE RECORDS SUMMARY | 2025-09-27 15:30 | XMS_ITS | Encounter Summary ---
Author Organization [facility] Address [address] [place] [address] Care Team Providers Care Oil Drilling Engineer Name Role Phone Augustin Coronado MD Primary Care Provider [phone] Karen Marcial MD Unavailable [phone] Encounter Details DateTypeDepartmentCare Team (Latest Contact Info)Queqtogklqq61/03/2025 3:30 PM ESTOffice Visit [facility] [address] [address] Thaddeus Negrete MD [address] [facility] [address] [place] [address] Coronary artery disease involving [place] coronary artery of [place] heart with other form of angina pectoris (Primary Dx); Primary hypertension; Chronic diastolic congestive heart failure (CMS/HCC); Mixed hyperlipidemia; Status post insertion of drug eluting coronary artery stent Social History Tobacco UseTypesPacks/DayYears UsedDateSmoking Tobacco: NeverSmokeless Tobacco: NeverAlcohol UseStandard Drinks/WeekCommentsYes0 (1 standard drink = 0.6 oz pure alcohol)occasionalHumiliation, Afraid, Rape, and Kick questionnaireAnswerDate RecordedWithin the last year, have you been afraid of your partner or ex-partner?No10/03/2023Emotionally AbusedNot on file3Physically Abused Not on file10/03/2023Sexually AbusedNot on file10/03/2023Overall Financial Resource Strain (CARDIA)AnswerDate RecordedHow hard is it for you to pay for the very basics like food, housing, medical care, and heating?Not hard at all 10/03/2023UT Safety & EnvironmentAnswerDate RecordedWithin the last year, have you been afraid of your partner or ex-partner?No10/03/2023Emotionally AbusedNot on file10/03/2023hysically AbusedNot on file10/03/2023Sexually AbusedNot on file10/03/2023hysically or Sexually AbusedNot on file10/03/2023Transportation AnswerDate RecordedIn the past 12 months, has lack of transportation kept you from medical appointments or from getting medications?No10/03/2023Lack of Transportation (Non-Medical)Not on file10/03/2023Housing Stability Vital Sign AnswerDate RecordedUnable to Pay for Housing in the Last YearNot on file 10/03/2023Number of Places Lived in the Last YearNot on file10/03/2023In the last 12 months, was there a time when you did not have a steady place to sleep or slept in ashelter (including now)?No10/03/2023Hunger Vital SignAnswerDate RecordedWithin the past 12 months, you worried that your food would run out before you got the money to buymore.Never true10/03/2023Ran Out of Food in the Last YearNot on file10/03/2023Sex and Gender InformationValueDate RecordedSex Assigned at CncsvYdgp39/20/2023 12:06 PM EDTLegal GidTmmt4705/15/2023 9:58 AM EDT Gender DnznxuadUyeo82/20/2023 12:06 PM EDTSexual OrientationHeterosexual or Xfrjriuk17/20/2023 12:06 PM EDTdocumented as of this encounter Last Filed Vital Signs Vital SignReadingTime TakenCommentsBlood Gibzxfba365/7509/27/2025 4:03 PM EST Jomiy288409/27/2025 4:03 PM ESTTemperature--Respiratory Rate--Oxygen Jloqprjcqa47% 09/27/2025 4:03 PM ESTInhaled Oxygen Concentration--Qjfpvh787 kg (350 lb) 09/27/2025 4:03 PM IZTUpqvuq309.8 cm (5' 10 )09/27/2025 4:03 PM ESTBody Mass Index50.22111/27/2024 4:03 PM ESTdocumented in this encounter Functional Status * BPAnswerDate of DqjooonursLuibhs896/7511 4:03 PM Keysha Hopkins MA * PulseAnswerDate of GacagygkjpRauozx4179/03/2025 4:03 PM Keysha Hopkins MA * Patient PositionAnswerDate of FdxkftvjfyNoaclsRtimqqf14/03/2025 4:03 PM EST Keysha Sommers MA * BPAnswerDate of DukkrzhetaWushuy954/7509/27/2025 4:03 PM Keysha Hopkins MA * PulseAnswerDate of JfpaklwxnlEkspgs3030/03/2025 4:03 PM Keysha Hopkins MA * LcO0BthjfqSrcl of ZfgtehgegbNkdidv5718/03/2025 4:03 PM Keysha Hopkins MA * BP LocationAnswerDate of AssessmentAuthorLeft arm09/27/2025 4:03 PM Keysha Zambrano MA * Patient PositionAnswerDate of LbvawoiyeeSnmzcdJwbikjy49/03/2025 4:03 PM Keysha Zambrano MA documented as of this encounter Progress Notes * Thaddeus Negrete MD - 09/27/2025 3:30 PM EST Images from the original note were not included. [place] [facility] Subjective Ehsan Brumfield is a 50 y.o. year old male patient being seen for 6 month follow up appointment. Patient states he has occasional chest pain with and without activity, at night when he lays down has chest pressure until he puts on bipap or props himself up, SOB/MOISE, occasional leg swelling, occasional flutter. Patient would like to talk about ozempic or manarjo for weigh loss. Patient Active Problem List Diagnosis Abnormal cardiovascular stress test Unstable angina (CMS/HCC) Benign essential HTN Mixed hyperlipidemia Elevated hemoglobin A1c Morbid obesity with BMI of 45.0-49.9, adult (CMS/HCC) CAROL (obstructive sleep apnea) Coronary artery disease due to lipid rich plaque Coronary artery disease due to calcified coronary lesion Acute frontal sinusitis Ankle edema Anxiety Cervical disc disorder Chalazion Chest pain at rest COVID-19 Cutaneous skin tags Depression with anxiety Diabetes mellitus without complication (CMS/HCC) Head contusion Healthy adult Hypertension Hypothyroid Impacted cerumen Inflamed seborrheic keratosis Major depressive disorder, single episode, unspecified Neoplasm of uncertain behavior of skin of face Perforation of tympanic membrane Otitis externa Pain of lumbar spine Peripheral vertigo Pharyngitis Radial styloid tenosynovitis Right lower quadrant pain Shoulder impingement syndrome Sprain of knee Abnormal stress test Other chest pain Coronary artery disease Pain in limb Family History Problem Relation Name Age of Onset Cancer Mother Hypertension Father Cancer Father Heart attack Maternal Grandfather Social History Tobacco Use Smoking status: Never Smokeless tobacco: Never Substance Use Topics Alcohol use: Yes Comment: occasional Drug use: Never HPI Visit of 03/01/2025: Ehsan is seen in follow-up. This is the first time I am meeting him. He used to follow-up with Dr. Karen Marcial. He is a 49-year-old man with history of hypertension, hyperlipidemia, obstructive sleep apnea, HFpEF, CAD status post PCI of the OM1 and PCI of the LAD. On 11/24/2024 he underwent balloon angioplasty to ISR of the LAD. At last visit in cardiology on 12/28/2024 he was recommended lifelong DAPT given large stent burden. He is maintained on aspirin and Brilinta. He was having symptoms of chest pain. Ranexa 500 twice daily was added. Today he reports that he has been doing very well. He has had no symptoms of chest pain. He has mild shortness of breath on exertion and mild occasional lower extremity edema. He is able to perform physical activities without limitations. Visit of 09/27/2025: He is seen in follow up. At visit of 03/01/2025 and due to optimize LDL control I added ezetimibe 10 mg daily to atorvastatin 80 mg daily. I also increased carvedilol to 12.5 mg twice daily. And reduced clonidine to 0.1 mg once daily. He is currently taking carvedilol 6.25 twice daily and he is no longer taking clonidine. Today he reports that he does have symptoms of chest and jaw pain with significant activity. He hasshortness of breath with exertion NYHA class II symptoms. He has occasional leg swelling. No palpitations. He has to rest for his symptoms to go away. He feels that if he does not take the Ranexa the symptoms are worse. Review of Systems Cardiovascular: Positive for dyspnea on exertion (occasional) and leg swelling (occasional). Respiratory: Positive for shortness of breath. Musculoskeletal: Positive for joint pain. Objective Visit Vitals BP 122/75 (BP Location: Left arm, Patient Position: Sitting) Pulse 77 Ht 1.778 m (5' 10 ) Wt (!) 159 kg (350 lb) SpO2 97% BMI 50.22 kg/m?? Smoking Status Never BSA 2.8 m?? Physical Exam Constitutional: Appearance: He is well-developed. He is obese. He is not ill-appearing. HENT: Head: Normocephalic and atraumatic. Nose: Nose normal. Eyes: General: No scleral icterus. Pupils: Pupils are equal, round, and reactive to light. Neck: Thyroid: No thyromegaly. Vascular: No JVD. Cardiovascular: Rate and Rhythm: Normal rate and regular rhythm. Pulses: Radial pulses are 2+ on the right side and 2+ on the left side. Heart sounds: Normal heart sounds. No murmur heard. No friction rub. No gallop. Pulmonary: Effort: Pulmonary effort is normal. No respiratory distress. Breath sounds: Normal breath sounds. No wheezing or rales. Chest: Chest wall: No tenderness. Abdominal: General: Bowel sounds are normal. There is no distension. Palpations: Abdomen is soft. Tenderness: There is no abdominal tenderness. Musculoskeletal: General: No swelling. Cervical back: Neck supple. Skin: General: Skin is warm and dry. Neurological: General: No focal deficit present. Mental Status: He is alert and oriented to person, place, and time. Psychiatric: Mood and Affect: Mood normal. Behavior: Behavior is cooperative. Judgment: Judgment normal. Allergies No Known Allergies Medications Current Outpatient Medications: aspirin 81 mg EC tablet, Take 81 mg by mouth in the morning., Disp: , Rfl: atorvastatin (Lipitor) 80 mg tablet, Take 1 tablet (80 mg) by mouth in the morning. (Patient takingdifferently: Take 80 mg by mouth at bedtime.), Disp: 30 tablet, Rfl: 11 carvedilol (Coreg) 12.5 mg tablet, TAKE 1 TABLET BY MOUTH EVERY MORNING AND 1 & 1/2 TABLETS EVERY EVENING (Patient taking differently: 6.25 MORNING AND 6.25 Evening), Disp: 270 tablet, Rfl: 3 ezetimibe (Zetia) 10 mg tablet, Take 1 tablet (10 mg) by mouth in the evening., Disp: 90 tablet, Rfl: 3 ferrous sulfate 325 (65 Fe) MG tablet, Take 325 mg by mouth 2 times daily., Disp: , Rfl: furosemide (Lasix) 40 mg tablet, Take 1 tablet (40 mg) by mouth in the morning., Disp: 90 tablet, Rfl: 3 irbesartan (Avapro) 300 mg tablet, Take 1 tablet (300 mg) by mouth once daily as directed., Disp: 90 tablet, Rfl: 3 levothyroxine (Synthroid, Levoxyl) 100 mcg tablet, Take 100 mcg by mouth in the morning., Disp: , Rfl: nitroglycerin (Nitrostat) 0.4 mg SL tablet, Place 0.4 mg under the tongue every 5 (five) minutes ifneeded for chest pain., Disp: , Rfl: pantoprazole (ProtoNix) 40 mg EC tablet, Take 1 tablet (40 mg) by mouth before breakfast. Do not crush, chew, or split., Disp: 90 tablet, Rfl: 3 ranolazine (Ranexa) 500 mg 12 hr tablet, Take 1 tablet (500 mg) by mouth two times daily. Do not crush, chew, or split., Disp: 180 tablet, Rfl: 3 sildenafil (Viagra) 100 mg tablet, 1 (one) time each day at the same time., Disp: , Rfl: spironolactone (Aldactone) 25 mg tablet, Take 1 tablet (25 mg) by mouth in the morning., Disp: 90 tablet, Rfl: 3 ticagrelor (Brilinta) 90 mg tablet, Take 1 tablet (90 mg) by mouth two times daily., Disp: 180 tablet, Rfl: 3 tiZANidine (Zanaflex) 4 mg tablet, Take 4 mg by mouth if needed for muscle spasms., Disp: , Rfl: cloNIDine (Catapres) 0.2 mg tablet, Take 0.2 mg by mouth at bedtime. (Patient not taking: Reported on 09/27/2025), Disp: , Rfl: ranolazine (Ranexa) 500 mg 12 hr tablet, Take 1 tablet (500 mg) by mouth two times daily. Do not crush, chew, or split. (Patient not taking: Reported on 09/27/2025), Disp: 180 tablet, Rfl: 3 Recent Labs No visits with results within 6 Month(s) from this visit. Latest known visit with results is: Admission on 11/24/2024, Discharged on 11/24/2024 Component Date Value Ventricular Rate 11/24/2024 63 Atrial Rate 11/24/2024 63 NM Interval 11/24/2024 160 QRS DURATION 11/24/2024 114 QT Interval 11/24/2024 422 QTC CALCULATION(BAZETT) 11/24/2024 431 P Dwight 11/24/2024 12 R-Dwight 11/24/2024 0 T Wave Dwight 11/24/2024 7 POCT ACT 11/24/2024 362 (A) QC Pass/Fail 11/24/2024 Passed QC LOT # 11/24/2024 8 QC Expiration Date 11/24/2024 73,125 Blood testing 11/20/2024: Potassium 4.6, BUN 37, creatinine 1.5, EGFR 50, hemoglobin 13.2, platelets 202. Blood testing 10/20/2024: Hemoglobin 12.7, platelets 206, potassium 4.1, BUN 21, creatinine 1.26, EGFR more than 60, LFTs normal, triglycerides 129, cholesterol 121, HDL 33, LDL 63. Imaging and other tests Cardiac catheterization 11/24/2024: Final Impressions: -Severe in-stent restenosis in previously placed stents in the mid LAD, 90-95%. This was successfully reduced to 0% following successful balloon angioplasty -Previously placed stents in the left circumflex patent -Moderately diseased RCA -Elevated LVEDP, 18 mmHg ECG 11/24/2024: Normal sinus rhythm Normal ECG Stress test 10/23/2024: Small focal area involving the anterior apically wall suspected represent reversible ischemia. Echocardiogram 10/23/2024: 1. Moderate concentric left trickle hypertrophy with normal systolic function. LVEF is estimated at55 to 60%. 2. Normal right ventricular size and systolic function. 3. Normal diastolic function. 4. No significant valvular dysfunction. 5. Normal right-sided pressures. Cardiac catheterization 10/03/2023: Final Impressions: -70 to 80% stenosis at the ostium of the LAD, followed by 70% stenosis in the mid LAD, 99% stenosisin the mid LAD, and tandem 80 to [...] vessel and is not amenable to PCI Cardiac catheterization 06/03/2023: Final Impressions: -90% stenosis of mid OM 1, successfully reduced to 0% stenosis following Balloon angioplasty and drug-eluting stent placement with a 4.5 x 20 mm Megatron NA -Moderate disease in LAD diffusely -Elevated LVEDP -Poorly controlled Bp Assessment/Plan Diagnoses and all orders for this visit: Coronary artery disease involving [place] coronary artery of [place] heart with other form of angina pectoris - Lexiscan Stress Myocardial Perfusion Imaging; Future Primary hypertension Chronic diastolic congestive heart failure (CMS/HCC) Mixed hyperlipidemia Status post insertion of drug eluting coronary artery stent He has been having symptoms of angina. these seem to have recurred recently. His blood pressure andheart rate are well-controlled. I am going to check a stress test to quantify ischemia. Last intervention October 2024 was to in-stent restenosis in the LAD. It is possible that he ray narrowed the stents. I explained to him that if he has significant ischemia we will proceed with cardiac catheterization and possibly use a drug-coated balloon this time for in- stent restenosis treatment. We discussed risk factor control. At last visit I added ezetimibe to the current atorvastatin 80 mg. He recently had a wellness check at his workplace. He will send us blood testing results and I will order additional testing as needed. from chronic diastolic heart failure perspective, he is in NYHA class II symptoms. Continue currentspironolactone and furosemide. He asks about GLP-1 agonist medications. I think these would be of important effect for him given his morbid obesity and cardiovascular disease. He will discuss with Dr. Augustin Coronado his primary care physician starting these medications. Continue dual antiplatelet therapy with aspirin and Brilinta. If the stress test is negative and unless needed before, I will plan on seeing him in follow-up in 6 months. Follow up in about 6 months (around 03/27/2026). 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 Expected: 09/27/2025 (Approximate), Expires: 09/27/2027documented as of this encounter Visit Diagnoses Diagnosis Coronary artery disease involving [place] coronary artery of [place] heart with other form of angina pectoris- Primary Primary hypertension Unspecified essential hypertension Chronic diastolic congestive heart failure (CMS/HCC) Mixed hyperlipidemia Status post insertion of drug eluting coronary artery stent documented in this encounter Care Teams Team MemberRelationshipSpecialtyStart DateEnd Date Augustin Coronado MD [address] [facility] [address] [address] PCP - General05/24/23 Karen Marcial MD [address] [facility] [address] [place] [address] Oawtiknnes25/10/23documented as of this encounter
--- OUTSIDE RECORDS SUMMARY | 2025-10-08 06:57 | XMS_ITS | Clinical Summary ---
Author Organization [facility] Healthcare Address [address] [place] [address] Care Team Providers Care Senior Clinical Data Manager Name Role Phone Unavailable Primary Care Provider Unavailabl e Social History Tobacco UseTypesPacks/DayYears UsedDateSmoking Tobacco: Never AssessedSex and Gender InformationValueDate RecordedSex Assigned at BirthNot on fileLegal Sex Male02/06/2023 8:32 PM EDTGender IdentityNot on fileSexual OrientationNot on file Last Filed Vital Signs Vital SignReadingTime TakenCommentsBlood Itytdfbc486/89953 12:00 PM EDT Pulse--Temperature--Respiratory Rate--Oxygen Saturation--Inhaled Oxygen Concentration--Qxchkc154 kg (361 lb)06/04/2022 12:00 PM LDQYoejtf333.3 cm (5' 9 )06/04/2022 12:00 PM EDTBody Mass Index53.31006/04/2022 12:00 PM EDT Plan of Treatment Not on file Insurance
--- OUTSIDE RECORDS SUMMARY | 2025-10-08 06:58 | XMS_ITS | Clinical Summary ---
Author Organization [facility] Address [address] [place] [address] Care Team Providers Care Vp Patient Name Role Phone Augustin Coronado MD Primary Care Provider [phone] Karen Marcial MD Unavailable [phone] Allergies No known active allergies Medications MedicationSigDispense [...] 12 hr tablet Indications:Coronary artery disease involving [place] coronary artery of [place] heart without angina pectorisTake 1 tablet (500 [...] 10 mg tablet Indications:Coronary artery disease involving [place] coronary artery of [place] heart without angina pectoris,Mixed hyperlipidemiaTake 1 tablet [...] mg EC tablet Indications:Coronary artery disease involving [place] coronary artery of [place] heart without angina pectorisTake 1 tablet (40 mg) by mouth before breakfast. Do not crush, chew, or split. 90 tablet /ctive irbesartan (Avapro) 300 mg tablet Indications:Multiple vessel coronary artery diseaseTake 1 tablet (300 mg) by mouth once daily as directed. 90 tablet 5Active Active Problems ProblemNoted DateDiagnosed DatePain in limb09/27/2025bnormal stress test 11/03/2024Other chest pain11/03/2024oronary artery mhxvetz6911/03/2024cute frontal vhkmfxtna46nkle edemanxiety ervical disc kxtthoor53halazion hest pain at restOVID-19111/22/2023utaneous skin tagsepression with anxiety iabetes mellitus without pwtrtmtwazfx79 Head gtzyguahr96Healthy adultHypertension HypothyroidImpacted jcuxqfv9711/22/2023Inflamed seborrheic oruavwwoi40Major depressive disorder, single episode, tmnkaickwcq91Neoplasm of uncertain behavior of skin of faceerforation of tympanic membrane Otitis khtmqyz08ain of lumbar spine eripheral jsavtlo01haryngitis11/22/2023 11/22/2023Radial styloid extrcpwdfbkok22Right lower quadrant painShoulder impingement kqredknw14Sprain of kneeoronary artery disease due to calcified coronary xfrjsx9810/03/2023oronary artery disease due to lipid rich bdlvxj2109/17/2023 Abnormal cardiovascular stress test06/ Assessment & Plan (05/24/2023 2:45 PM EDT): Orders for cardiac cath Reviewed stress test and echocardiogram results with patient and his Unstable vrexhw1505/24/2023 Assessment & Plan (05/24/2023 2:43 PM EDT): [...] CBC and BMP for renal function Mixed likcrzesuttpbx96/30/2023 Assessment & Plan (05/24/2023 2:43 PM EDT): [...] PM EDT): Follow-up with PCP Encounters DateTypeDepartmentCare HsfgVkkhzbxybyf82/03/2025 3:30 PM ESTOffice Visit [facility] [address] [place] [address] Thaddeus Negrete MD Coronary artery disease involving [place] coronary artery of [place] heart with other form of angina pectoris [...] file10/03/2023Sex and Gender InformationValueDate RecordedSex Assigned at XrrjcQcom72/20/2023 12:06 PM EDTLegal QagUytd7805/15/2023 9:58 AM EDT Gender DzuegvpeRplv33/20/2023 12:06 PM EDTSexual OrientationHeterosexual or Ulqqnelj83/20/2023 12:06 PM EDT Last Filed Vital Signs Vital SignReadingTime TakenCommentsBlood Cqonklhn071/7509/27/2025 4:03 PM EST Kcuah288109/27/2025 4:03 PM YQMIaeprxelkue29.8 ??C (98.2 ??F)10/04/2023 7:40 AM ESTRespiratory Tppk7257 2:30 PM ESTOxygen Aqzpxgrlrm45%09/27/2025 4:03 PM ESTInhaled Oxygen Concentration--Zyvfhe152 kg (350 lb)09/27/2025 4:03 PM EST Gczqpn920.8 cm (5' 10 )09/27/2025 4:03 PM ESTBody Mass Index50. 4:03 PM EST Plan of Treatment Health MaintenanceDue DateLast DoneCommentsCT Fnmkaajphbtb1975Colonoscopy 1975Colorectal Cancer Hduojntlg1975Diabetes: Hemoglobin A1C 1975FIT-DNA1975FIT1975FOBT1975 1748Ejkmsozkalhzy1975 Diabetes: Retinopathy Pmhmobhqa95/26/1985Depression Lrkrstfno80/26/1987Diabetes: Urine Protein Ijhqtsooz55/26/1994Hepatitis B Vaccines (1 of 3 - 19+ 3-dose series)1994Pneumococcal Vaccine: Pediatrics (0 to 5 Years) and At-Risk Patients (6 to 64 Years) (1 of 2 - PCV)1994Zoster Vaccines (1 of 2) 5COVID-19 Vaccine (1 - season)2025Influenza Vaccine (#1) 5Adult Htpkgqi38HIB VaccinesAged OutNo longer eligible based on patient's [...] / LotStent,Synergy Xd Mr 2.5 X48mm - [id number] Implanted:Qty: 1 on 10/03/2023 [facility] [id number] / / [id number],Synergy Xd Mr 3.07r24bp - [id number] Implanted:Qty: 1 on 10/03/2023 by [facility] [id number] / / [id number],Synergy Michele,Michael 4.5x20m - [id number] Implanted:Qty: 1 on 06/03/2023 by [facility] [id number] / / [id number] Insurance Advance Directives * Full Code (Latest Code Status on File) Date ActivatedDate NzmodzcygzzMsxdbfom97/9/2023 11:39 AM10/04/2023 1:20 PM * Full Code Date ActivatedDate FryebkcjioiVaoaedje65/9/2023 11:32 AM10/03/2023 11:39 AM Care Teams Team MemberRelationshipSpecialtyStart DateEnd Date Augustin Coronado MD [address] [facility] [address] [address] PCP - General05/24/23 Karen Marcial MD [address] [facility] [address] [place] [address] Jdqtdwrswb42/10/23
--- OUTSIDE RECORDS SUMMARY | 2025-10-08 06:58 | XMS_ITS | Patient Health Record ---
Author Organization The [facility] in [place] Address [address] [place] [address] Care Team Providers Care Bonderizer Name Role Phone Tung Coronado Primary Care Provider Allergies No Known Allergies Results Component Value Reference Range Notes CBC AUTO DIFF Reviewed date:11/22/2024 03:06:47 PM Interpretation: Performing Lab: Notes/Report: [facility] , White Blood Count 9.9 4.0-11.0 10 3/uL Red Blood Count4.124.70-6.10 10 6/cSEikglntzcq28.214.0-18.0 g/hKQtdttkswrf79.4 42.0-54.0 %Mean Corpuscular Urskob91.680.0-94.0 fLMean Corpuscular Hemoglobin 32.025.9-34.0 pgMean Corpuscular HGB Conc33.529.9-35.2 g/dLRed Cell Distribution Width12.511.0-15.0 %Platelet Njjsk219728-651 10 3/uLMean Platelet Lnngzb38.09.5- 13.5 fLNeutrophils Percent Auto56.343.0-75.0 %Lymphocytes Percent Auto31.620.5- 60.0 %Monocytes Percent Auto8.91.7-12.0 %Eosinophils Percent Auto2.40.9-7.0 % Basophils Percent Auto0.10.2-2.0 %Immature Granulocytes Pct Auto0.70.0-0.5 % Neutrophils Absolute Auto5.61.4-6.5 10 3/uLLymphocytes Absolute Auto3.11.2-3.8 10 3/uLMonocytes Absolute Auto0.90.3-0.8 10 3/uLEosinophils Absolute Auto0.20.0- 0.7 10 3/uLBasophils Absolute Auto0.00.0-0.1 10 3/uLImmature Granulocytes Abs Auto0.070.00-0.03 10 3/uLPerforming Lab:see noteML - [facility] PROF CHEM 8 (BAS METB) Reviewed date:11/22/2024 03:06:47 PM Interpretation: Performing Lab: Notes/Report: [facility] ,Gjfzmd959508-134 mmol/LPotassium4.63.5-5.1 mmol/ZGziqfwjy25834-640 mmol/LCarbon Kbpowdm11.421.0-32.0 mmol/LAnion Gap13.0Gskhwus00824-026 mg/dLBlood Urea Muqkmojt07.07.0-18.0 mg/dLCreatinine1.500.70-1.30 mg/dLEstimated GFR ( Gabi>60>=60 mL/min/1.73m 2Estimated GFR (Non- Ame50>=60 mL/min/1.73m 2 BUN Creatinine Ratio24.4Gaqcwrg8.68.5-10.1 mg/dLPerforming Lab:see noteML - [facility] kailee perf SPECT rest str Reviewed date:11/02/2024 12:47:51 PM Interpretation: Performing Lab: Notes/Report: Source Facility: [address] [address] [place] [address] Nuclear Medicine Report Signed Patient: EHSAN BRUMFIELD MR#: [id number] : 1975 Acct:[id number] Age/Sex: 49 / M ADM Date: 10/23/24 Loc: [place]OR[place] Attending Dr: ISRAEL BLAIR Ordering Physician: ISRAEL BLAIR Date of Service: 10/23/24 Procedure(s): NM kailee perf SPECT rest str Accession Number(s): [id number] cc: ISRAEL BLAIR; Augustin Coronado M.D. Patient Name: EHSAN BRUMFIELD MR#: [id number] : 1975 Exam Date: 10/23/2024 Ordering Doctor: ISRAEL BLAIR M.D. RADIOLOGY REPORT PROCEDURE: NM KAILEE PERF SPECT REST STR COMPARISON: NM KAILEE PERF SPECT REST STR, 05/13/2023. INDICATIONS: CHEST PAIN, DYSPNEA TECHNIQUE: Exam Description: Stress/Rest two day protocol gated SPECT Rest Imagin.4 mCi Tc-99m Cardiolite IV on 10/23/2024 Stress Imaging 25.7 mCi Tc-99m Cardiolite IV on 10/30/2024 Exercise Protocol: 0.4 mg Lexiscan given IV Heart Rate (bpm): Rest: 70 Max: 91 PMHR: 53 Blood Pressure: Rest: 144/81 Max: 144/81 Symptoms: Rest and peak stress ECG findings were pending and the exercise portion of the study was pending per attending physician Dr. GUERRERO . For more details please see separate cardiac stress test report. FINDINGS: QUALITY OF STUDY: Good. PERFUSION DEFECT: LOCATION: Apical anterior. SIZE: Small (1-2 segments). SEVERITY: TYPE: Reversible. WALL MOTION: Normal. LV SIZE: Enlarged; EDV 153 mL. TID / TCD: None; 1.1 LVEF: Normal. Calculated EF 67%. SUMMARY: Myocardial perfusion imaging study has ABNORMAL findings. CONCLUSION: 1. Small focal area involving the anterior apically wall suspected represent reversible ischemia. Overall appearance and perfusion of the heart is significantly improved compared to prior study. 2. Left ventriculomegaly, 153 mL. 3. Normal wall motion and ejection fraction. Dictated by: Hira Suresh M.D. on 11/02/2024 at 08:07 Approved by: Hira Suresh M.D. on 11/02/2024 at 08:29 Dictated By: Hira Suresh M.D. Signed By: 11/02/24829 DD/ 9 TD/TT: Coal Screener:PROF Tucker(COMP METB) Reviewed date:10/20/2024 06:09:35 PM Interpretation: Performing Lab: Notes/Report: [facility] ,Ojmbmo092859-205 mmol/LPotassium4.13.5-5.1 mmol/NWjpuvxcp98642-917 mmol/LCarbon Saodalh76.421.0-32.0 mmol/LAnion Gap14.9Qufbjjd41047-613 mg/dLBlood Urea Zcbodfdo46.07.0-18.0 mg/dLCreatinine1.260.70-1.30 mg/dLEstimated GFR ( Gabi>60>=60 mL/min/1.73m 2Estimated GFR (Non- Yaneth>60>=60 mL/min/1.73m 2BUN Creatinine Ratio16.3Iuidnvm7.58.5-10.1 mg/dLBilirubin Total0.70.2-1.0 mg/dL Aspartate Amino Uxokbqeforf5844-75 U/LAlanine Krynhewnohfucpmu6985-15 U/L Alkaline Ikdlqkfzjev8070-273 U/LTotal Protein6.96.4-8.2 g/dLAlbumin Level3.23.4- 5.0 g/dLGlobulin3.7Albumin Globulin Ratio0.9Performing Lab:see noteML - [facility] LBLIPID PROFILE Reviewed date:10/20/2024 06:09:35 PM Interpretation: Performing Lab: Notes/Report: [facility] ,Kcitdkvcrpljy082<=150 mg/pVGkkraqacqhj790<=200 mg/dLHDL Mobsmlkinna3908-34 mg/dL > or =60 mg/dl - LOW CARDIOVASCULAR RISK <40 mg/dl - HIGH CARDIOVASCULAR RISK LDL Cholesterol Wmoelqqtoy34.0 <100 mg/dl OPTIMAL 100-129 mg/dl NEAR OR ABOVE OPTIMAL 130-159 mg/dl BORDERLINE HIGH 160-189 mg/dl HIGH >190 mg/dl VERY HIGH VLDL QYJIRALEIQH61.8Chol HDL Ratio3.7 3.3 - 4.4 LOW RISK 4.4 - 7.1 AVERAGE RISK 7.1 - 11.0 MODERATE RISK >11.0 HIGH RISK Performing Lab:see note - [facility] LBCBC AUTO DIFF Reviewed date:10/20/2024 06:09:35 PM Interpretation: Performing Lab: Notes/Report: [facility] ,White Blood Count9.94.0-11.0 10 3/uLRed Blood Count3.914.70-6.10 10 6/uL Pebxfqzklj65.714.0-18.0 g/lXIhdskbunhb65.742.0-54.0 %Mean Corpuscular Ertnen27.4 80.0-94.0 fLMean Corpuscular Thtimixkdy12.525.9-34.0 pgMean Corpuscular HGB Conc 33.729.9-35.2 g/dLRed Cell Distribution Width12.811.0-15.0 %Platelet Wthtq890 150-450 10 3/uLMean Platelet Fkotac93.49.5-13.5 fLNeutrophils Percent Auto55.3 43.0-75.0 %Lymphocytes Percent Auto31.020.5-60.0 %Monocytes Percent Auto10.01.7- 12.0 %Eosinophils Percent Auto2.60.9-7.0 %Basophils Percent Auto0.30.2-2.0 % Immature Granulocytes Pct Auto0.80.0-0.5 %Neutrophils Absolute Auto5.51.4-6.5 10 3/uLLymphocytes Absolute Auto3.11.2-3.8 10 3/uLMonocytes Absolute Auto1.00.3-0.8 10 3/uLEosinophils Absolute Auto0.30.0-0.7 10 3/uLBasophils Absolute Auto0.00.0- 0.1 10 3/uLImmature Granulocytes Abs Auto0.080.00-0.03 10 3/uLPerforming Lab:see noteML - [facility] LBCA echo doppler complete Reviewed date:10/25/2024 12:30:04 PM Interpretation: Performing Lab: Notes/Report: Source Facility: [place] [address] Cardiology Report Signed Patient: EHSAN BRUMFIELD MR#: [id number] : 1975 Acct:[id number] Age/Sex: 49 / M ADM Date: 10/23/24 Loc: [place] Attending Dr: ISRAEL BLAIR Ordering Physician: ISRAEL BLAIR Date of Service: 10/23/24 Procedure(s): CA echo doppler complete Accession Number(s): [id number] cc: ALGHOTHANI,Augustin Avery M.D. Patient Name: EHSAN BRUMFIELD MR#: [id number] : 1975 Exam Date: 10/23/2024 Ordering Doctor: ISRAEL BLAIR M.D. ECHOCARDIOGRAM REPORT PROCEDURE: CA ECHO DOPPLER COMPLETE INDICATIONS: Dyspnea on exertion, chest pain, cardiac stents, hypertension COMPARISON: None. DESCRIPTION: COMPLETE ECHOCARDIOGRAM Real-time transthoracic echocardiography with 2D, M-mode, spectral and color flow Doppler performed. QUALITY: Technical quality was good. LEFT VENTRICLE: Normal chamber size. Moderate concentric left ventricular hypertrophy. Normal systolic function. LV EF: Normal left ventricular ejection fraction, (>55%). DIASTOLIC: Normal diastolic function. ATRIAL SEPTUM: Visually appears intact. LEFT ATRIUM: Normal chamber size. RIGHT ATRIUM: Normal chamber size. RIGHT VENTRICLE: Normal chamber size. Normal right ventricular systolic function. TRICUSPID VALVE: Normal mobility and thickness. No stenosis with trivial regurgitation. No evidence of pulmonary hypertension. RVSP 31 mmHg MITRAL VALVE: Normal mobility and thickness. No evidence of mitral valve stenosis. There is no mitral annular calcification. No mitral regurgitation. AORTIC VALVE: Normal trileaflet appearance. No visible sclerosis. Normal leaflet mobility. No evidence of aortic valve stenosis. No aortic regurgitation. AORTIC ROOT: Normal diameter and appearance. Ascending aorta is normal in size. PULMONIC VALVE: Normal thickness and mobility. No stenosis. No regurgitation. PERICARDIUM: No evidence of pericardial effusion. IVC: Collapses with inspirations. IVC is dilated (2.2 cm) PLEURA: CONCLUSION: 1. Moderate concentric left ventricular hypertrophy with normal systolic function. LVEF is estimated at 55 to 60%. 2. Normal right ventricular size and systolic function. 3. Normal diastolic function. 4. No significant valvular dysfunction. 5. Normal right-sided pressures. Adult Echocardiography Procedure Report Left Ventricle LVEDD (3.7 - 5.6 cm): 4.88 cm LVESD (2.2 - 4.0 cm): 3.23 cm LVIVS thickness (0.6 - 1.2 cm): 1.62 cm LVPW thickness (0.5 - 1.0 cm): 1.32 cm e': 0.13 m/s E - e': 8.75 LVOT Max Gradient: 6.12 mm[Hg] LVOT Area (cm2): 1.24 m/s Peak Velocity (LVOT): 1.24 m/s Mean Velocity (LVOT): 0.76 m/s LVOT Diameter 2.33 cm Left Atrium LA Volume Index (2D A2C): 25.55 ml/m2 Left Atrium Systolic Dimension: 3.64 cm Mitral Valve MV E to A Ratio: 1.41 Mitral Valve A-Wave Peak Velocity: 0.83 m/s Mitral Valve E-Wave Peak Velocity: 1.17 m/s Right Ventricle Aorta AO Root Diam: 3.27 cm Ascending Ao Diam: 3.17 cm Aortic Valve AoV Area (Peak Judd): 2.86 cm2, 2.86 cm2 AoV Area (VTI): 2.66 cm2, 2.66 cm2 Peak Velocity(Antegrade Flow): 1.83 m/s Peak Gradient(Antegrade Flow): 13.47 mm[Hg] Mean Velocity(Antegrade Flow): 1.24 m/s Mean Gradient(Antegrade Flow): 7.03 mm[Hg] Velocity Time Integral: 41.76 cm Tricuspid Valve Peak Velocity (Regurgitant Flow): 2.37 m/s Pulmonic Valve Mean Gradient: 2.88 mm[Hg] Mean Velocity: 0.77 m/s Peak Velocity: 1.24 m/s, 0.95 m/s Peak Gradient: 3.59 mm[Hg], 6.16 mm[Hg] Right Atrium Right Atrium Systolic Pressure: 38.30 ml, 38.30 ml Dictated by: Thaddeus Negrete M.D. on 10/23/2024 at 14:46 Approved by: Thaddeus Negrete M.D. on 10/23/2024 at 15:10 Dictated By: THADDEUS NEGRETE Signed By: 10/23/241511 DD/ 09 TD/TT: Coal Screener: Reason For Referral No Information Medications Medication SIG (Take, Route, Frequency, Duration) Notes Start Date End Date Status Aspirin 81 MG 1 tablet Orally Once a day; Dura tion: 30 day(s) 04/29/2023ctiveSpironolactone 25 MG1 tablet Orally once daily; Duration: 90 daysActivetiZANidine HCl 4 MG2 tablets Orally at tposhkx0402/12/2024ctiveBlood Glucose Monitor System w/Deviceas directedActiveBrilinta 90 MG1 tablet Orally Twice a dayActiveCarvedilol 12.5 MG1 in a.m. and 1 1/2 at HS Oral; Duration: 90 daysActivecloNIDine HCl 0.2 MGTAKE 1 TABLET BY MOUTH Once a day; Duration: 90 daysActiveLevothyroxine Sodium 100 MCGTAKE 1 TABLET BY MOUTH EVERY DAY; Duration: 90 daysActiveFurosemide 40 MGTAKE 1 TABLET BY MOUTH DAILY Oral; Duration: 14 DaysActiveAtorvastatin Calcium 80 MGTAKE 1 TABLET BY MOUTH EVERY MORNING; Duration: 90 daysActiveIrbesartan 300 MG1 tablet Oral Once a day; Duration: 90 daysActiveZetia 10 MG1 tablet Orally Once a day5Active Pantoprazole SodiumActiveFerrous Sulfate 325 (65 Fe) MGTAKE 1 TABLET BY MOUTH TWICE A DAY FOR 90 DAYS; Duration: 90ActiveTriamcinolone Acetonide 0.1 %1 application Externally bid5Active Social History Tobacco Use: Social History Observation Description Date Details (start date - stop date) Never Smoker NA - NA Tobacco Use/Smoking Question Answer Notes Patient is a nonsmoker Alcohol Screen (Audit-C) Question Answer Notes Did you have a drink containing alcohol in the p ast year? Yes How often did you have 6 or more drinks on one occasion in the past year?Two to four times a month (2 points)How many drinks did you have on a typical day when you were drinking in the past year?3 or 4 drinks (1 point)How often did you have a drink containing alcohol in the past year?Weekly (3 points)Points6 InterpretationPositiveAUDIT-C (Standard) Question Answer Notes Did you have a drink containing alcohol in the p ast year? No Brciig1PiewuyiavouwloUhiddwdz Problems Problem Type SNOMED Code ICD Code Onset Dates Problem Status W/U Status Risk Notes Problem Acute frontal sinusitis (9452781 8) Acute recurrent frontal sinusitis (J01.11) ActiveconfirmedProblemSprain of knee (15080410)Sprain of unspecified site of unspecified knee, initial encounter (S83.90XA)ActiveconfirmedProblemChest pain (92000736)Chest pain (R07.9)ActiveconfirmedProblemHypertension (31299376) Hypertension (I10)ActiveconfirmedProblemAnxiety (79715010)Anxiety (F41.9)Active confirmedProblemCoronary artery disease (69994342)Coronary artery disease (I25.10)ActiveconfirmedProblemHypothyroid (56371061)Hypothyroid (E03.9)Active confirmedProblemDepression (683360892)Depression (F32.9)ActiveconfirmedProblem Sleep apnea (74992930)Sleep apnea (G47.30)ActiveconfirmedProblemImpacted cerumen (02409084)Cerumen impaction (H61.20)ActiveconfirmedProblemPharyngitis (301276813)Pharyngitis (J02.9)ActiveconfirmedProblemWell adult (072647265)Well adult (Z00.00)ActiveconfirmedProblemPain in limb (95356335)Right hand pain (M79.641)ActiveconfirmedProblemRadial styloid tenosynovitis (47481079)De Quervain's tenosynovitis (M65.4)ActiveconfirmedProblemOtitis externa (4629476) Otitis externa (H60.90)ActiveconfirmedProblemCervical disc disorder (247155995) DDD (degenerative disc disease), cervical (M50.30)ActiveconfirmedProblemAnkle edema (15718243)Ankle edema (R60.0)ActiveconfirmedProblemRight lower quadrant pain (609805326)Abdominal pain, RLQ (R10.31)ActiveconfirmedProblemFacial contusion (S00.83XA)ActiveconfirmedProblemPerforation of tympanic membrane (41387672)Tympanic membrane perforation, left (H72.92)ActiveconfirmedProblem Shoulder impingement syndrome (860909825)Shoulder impingement syndrome (M75.40) ActiveconfirmedProblemChest pain at rest (1394616)Chest pain at rest (R07.9) ActiveconfirmedProblemChalazion (7451896)Chalazion (H00.19)Activeconfirmed ProblemPeripheral vertigo (00572111)Vertigo, peripheral (H81.399)Activeconfirmed ProblemType II diabetes mellitus without complication (542646243)Diabetes (E11.9)ActiveconfirmedProblemCOVID-19 (089885845)COVID-19 (U07.1)Activeconfirmed ProblemPain in lumbar spine (finding) (614596413)Lumbar spine pain (M54.50) Activeconfirmed Vital Signs Blood pressure diastolic 90 mm Hg 03/01/2025 Xyumvt63 in05/14/2025lood pressure nettkiev904 mm Hg03/01/20250584Gwrahc794.0 lbs 03/01/2025BMI49.5 kg/m203/01/2025 Procedures Procedure Date Ordered Date Performed Result Body Sit e EAR IRRIGATION - performed 05/14/2025 05/14/2025 N/A Encounters Encounter Location Date Provider Diagnosis [address] [address] 11/27/2024 Tung Hoy Hypertension I10 ; Diabetes E11.9 and Coronary artery disease I25.[address] [address] 03/01/2025 Tung Hoy Well adult Z00.[address] [address] 05/14/2025 Tung Gamboay Bilateral impacted cerumen H61.[address] [address] 11/02/2024 Tung Hoy [address] [address] 11/03/[address] [address] [address]/28/2025Doug [address] [address]Doug [address] [address]/20/2025Tung Coronado Assessments Encounter Date Diagnosis (ICD Code) Assessment Notes Treatment Notes Treatment Clinical Notes Section Notes 11/27/2024 Hypertension (ICD-10 - I10) may needs u/s -function epnlpw8411/27/2024Diabetes (ICD-10 - E11.9)03/01/2025Well adult (ICD-10 - Z00.00)5Bilateral impacted cerumen (ICD-10 - H61.23)ear wash unsuccessful patient will come back next week for another ear irrigation 5Coronary artery disease (ICD-10 - I25.10) Plan Of Treatment Pending Test Test Name Order Date Exercise Stress Nuclear Test 04/29/2023 CMP (COMPLETE METABOLIC PANEL) 4 HEMOGLOBIN A1C (GLYCO) 03/16/2024 LIPID PANEL (CHOL/TRIG/HDL/LDL) 03/16/20 24 CBC WITH DIFF 03/16/2024 PSA, PROSTATE-SPECIFIC ANTIGEN 4 Sleep study - Diagnostic Polysonogram COMPREHENSIVE METABOLIC PROFILE WITH GFR 02/20/2024 OCCULT BLOOD, FECAL, IMMUNOASSAY 024 CBC W/AUTO DIFF 02/20/2024 CBC W/AUTO DIFF 03/30/2024 CEA 03/30/2024 FERRITIN 03/30/2024 GLYCOHEMOGLOBIN A1C 02/20/2024 IRON 03/30/2024 THYROID PANEL (T4/TSH/FREE T3) 4 THYROID PANEL (T4/TSH/FREE T3) 4 ECHOCARDIO M/2D COMPLETE 04/29/2023 PSA, SCREENING 02/20/2024 Lipid Panel 02/20/2024 Insurance Providers Payer Name Payer Address Payer Phone Subscriber Number Group Number Insured Name Patient Relationship to Insured Coverage Start Date Coverage End Date MMO [address] [employer], [place] [id number] Olivia Brumfield - patient is the insured Medical (General) History Medical History History ICD Code Over weight E66.3 Nosebleed R04.0 Ankle edema R60.0 Tinea cruris B35.6 COVID-19 U07.1 Acute bronchitis J20.9 Impetigo L01.00 Hypothyroid E03.9 Nevus D22.9 Vertigo, peripheral H81.399 Shoulder impingement syndrome M75.40 Contact dermatitis L25.9 Chalazion H00.19 Acute recurrent frontal sinusitis J01.11 Abdominal pain, RLQ R10.31 Well adult Z00.00 De Quervain's tenosynovitis M65.4 Otitis externa H60.90 Cerumen impaction H61.20 Tympanic membrane perforation, left H72. 92 Sleep apnea G47.30 Hypertension I10 Lumbar spine pain M54.50 Anxiety F41.9 Depression F32.9 Epididymitis N45.1 Surgical History Surgery Date(Month/Year) Vasectomy Left Heart Cath with stent placementheart cath with stent zbmdafutn86/9/23Heart Cath11/24/24
--- OUTSIDE RECORDS SUMMARY | 2025-10-08 06:58 | XMS_ITS | Clinical Summary ---
Author Organization [facility] Address [address], [address] [place] [address] Care Team Providers Care Undergraduate Intern Name Role Phone Augustin Coronado MD Primary [...] InformationValueDate RecordedSex Assigned at Not on fileLegal ZqdTuvx7603/16/2021 11:46 AM EDTGender IdentityNot on fileSexual OrientationNot on file Last Filed Vital Signs Vital SignReadingTime TakenCommentsBlood Pressure--Pulse--Wmjgbxahlin67.1 ??C (97 ??F)05/19/2021 3:01 PM EDTRespiratory Rate--Oxygen Saturation--Inhaled Oxygen Concentration--Bszojb909.2 kg (340 lb)05/19/2021 3:01 PM CMMRbwzlh570.3 cm (5' 9 )05/19/2021 3:01 PM EDTBody Mass Index50.21005/19/2021 3:01 PM EDT Plan of Treatment Not on file Insurance Care Teams Team MemberRelationshipSpecialtyStart DateEnd Augustin Coronado MD [address] [id number] PCP - GeneralFamily Medicine05/19/21
--- NOTE | 2025-10-11 17:05 | PM.STRESS ---
Stress Test Stress Test Allergies Allergy/AdvReac Type Severity Reaction Status Date / Time No Known Drug Allergies Allergy Verified 05/13/23 08:08 Requesting physician: BRAYDEN SHEARER Procedure: Lexiscan nuclear stress test General Information: Reason for Stress Test: [Chest pain] Cardiac History and Risk Factors: [History of coronary artery disease and stents, hypertension] Resting 12 - Lead Electrocardiogram: Resting twelve-lead EKG showed normal sinus rhythm, heart rate 74 bpm, normal EKG, resting blood pressure 144/88 mmHg. Patient received Lexiscan 0.4 mg IV and was monitored for few minutes. Peak heart rate 97 bpm which represents 57% of age-predicted maximum heart rate. Peak blood pressure 146/90 mmHg. Patient did not report any symptoms. EKG throughout the test did not show significant ST changes or any arrhythmias Stress Test: Protocol: [Lexiscan] Exercise Capacity: [Not applicable] Blood Pressure Response: [Normal] Rhythm: [No arrhythmia] ST - Response: [No ST changes] Patient Response: [No symptoms] Interpretation: Negative Lexiscan EKG stress test for ischemia The nuclear myocardial perfusion stress images result is reported separately Pamela Mitchell MD, FACC
== END 2025-10-08 06:55 | disposition home or self-care (01) ==
LOC: NM 06:55
PROVIDERS: PCP Family Medicine; Visit Provider Internal Medicine Interventional Cardiology
DX: I25.118 Atherosclerotic heart disease of native coronary artery with other forms of angina pectoris (principal)

== ENCOUNTER 2025-10-26 16:12 | Outpatient (OUT) | payer OTHER, SELFPAY ==
--- OUTSIDE RECORDS SUMMARY | 2025-10-26 16:19 | XMS_ITS | Encounter Summary ---
Author Organization [facility] Address [address] [place] [address] Care Team Providers Care Administrative Services Officer Name Role Phone Augustin Coronado MD Primary Care Provider [phone] Karen Marcial MD Unavailable [phone] Encounter Details DateTypeDepartmentCare Team (Latest Contact Info)Amxgnofaljy62/18/2025Orders Only [facility] [address] [place] [address] ProviderNan MD [address] [place], [place] [id number] Social History Tobacco UseTypesPacks/DayYears UsedDateSmoking Tobacco: NeverSmokeless [...] file10/03/2023Sex and Gender InformationValueDate RecordedSex Assigned at FknfiAswy45/20/2023 12:06 PM EDTLegal FcjNbib5705/15/2023 9:58 AM EDT Gender LnppinbfAbnw29/20/2023 12:06 PM EDTSexual OrientationHeterosexual or Lmjrphdz96/20/2023 12:06 PM EDTdocumented as of this encounter Plan of Treatment DateTypeDepartmentCare Team (Latest Contact Info)Prrucegbkir54/04/2025 1:30 PM ESTHospital Encounter [facility] V[facility] Lab [address] [place] [address] Thaddeus Negrete MD [address] [facility] [place] [address] Abnormal stress test; Coronary artery disease, unspecified vessel or lesion type, unspecified whether angina present, unspecified whether havasupai or transplanted heart10/28/2025 1:30 PM EST - 10/28/2025 2:30 PM ESTSurgery [facility] [address] [place] [address] Thaddeus Negrete MD [address] [facility] [address] [facility] [place] [phone] Coronary angiographydocumented as of this encounter Procedures Procedure NamePriorityDate/TimeAssociated DiagnosisCommentsLEXISCAN STRESS MYOCARDIAL PERFUSION HCMTMFYSasacka79/13/2025 9:29 AM ESTdocumented in this encounter Results * Lexiscan Stress Myocardial Perfusion Imaging (10/07/2025 9:29 AM EST) Anatomical RegionLateralityModalityOther Narrative Authorizing ProviderResult TypeResult StatusHistorical Provider MDCV STRESS PROCEDURESFinal Result documented in this encounter Visit Diagnoses Not on filedocumented in this encounter Care Teams Team MemberRelationshipSpecialtyStart DateEnd Date Augustin Coronado MD [address] [facility] [address] [address] PCP - General05/24/23 Karen Marcial MD [address] [facility] [address] [place] [address] Jzohvqodad89/10/23documented as of this encounter
--- OUTSIDE RECORDS SUMMARY | 2025-10-26 16:19 | XMS_ITS | Encounter Summary ---
Author Organization [facility] Address [address] [place] [address] Care Team Providers Care Personal Lines Sales Executive Name Role Phone Augustin Coronado MD Primary Care Provider [phone] Karen Marcial MD Unavailable [phone] Encounter Details DateTypeDepartmentCare Team (Latest Contact Info)Veqggkjqjrm56/02/2025Travel Social History Tobacco UseTypesPacks/DayYears UsedDateSmoking Tobacco: NeverSmokeless [...] file10/03/2023Sex and Gender InformationValueDate RecordedSex Assigned at WdpemCcyu93/20/2023 12:06 PM EDTLegal DcnDiga3005/15/2023 9:58 AM EDT Gender YtpbevjsJznk19/20/2023 12:06 PM EDTSexual OrientationHeterosexual or Ykgrvval51/20/2023 12:06 PM EDTdocumented as of this encounter Plan of Treatment DateTypeDepartmentCare Team (Latest Contact Info)Qlkjixngebz57/04/2025 1:30 PM ESTHospital Encounter [facility] [address] [place] [address] Thaddeus Negrete MD [address] [facility] [address] [place] [phone] Abnormal stress test; Coronary artery disease, unspecified vessel or lesion type, unspecified whether angina present, unspecified whether [place] or transplanted heart10/28/2025 1:30 PM EST - 10/28/2025 2:30 PM ESTSurgery [facility] [address] [place] [address] Thaddeus Negrete MD [address] [facility] [address] [place] [address] Coronary angiographydocumented as of this encounter Visit Diagnoses Not on filedocumented in this encounter Care Teams Team MemberRelationshipSpecialtyStart DateEnd Augustin Coronado MD [address] [facility] [place] [address] PCP - General05/24/23 Karen Marcial MD 1000 [facility] [address] [place] [address] Puyxxukeov33/10/23documented as of this encounter
--- OUTSIDE RECORDS SUMMARY | 2025-10-26 16:19 | XMS_ITS | Clinical Summary ---
Author Organization [facility] Healthcare Address [address] [place] [address] Care Team Providers Care Special Distribution Clerk Name Role Phone Unavailable Primary Care Provider Unavailabl e Social History Tobacco UseTypesPacks/DayYears UsedDateSmoking Tobacco: Never AssessedSex and Gender InformationValueDate RecordedSex Assigned at BirthNot on fileLegal Sex Male02/06/2023 8:32 PM EDTGender IdentityNot on fileSexual OrientationNot on file Last Filed Vital Signs Vital SignReadingTime TakenCommentsBlood Ensodkaq555/28723 12:00 PM EDT Pulse--Temperature--Respiratory Rate--Oxygen Saturation--Inhaled Oxygen Concentration--Xwzcya291 kg (361 lb)06/04/2022 12:00 PM UECDzkhfs108.3 cm (5' 9 )06/04/2022 12:00 PM EDTBody Mass Index53.31006/04/2022 12:00 PM EDT Plan of Treatment Not on file Insurance
--- OUTSIDE RECORDS SUMMARY | 2025-10-26 16:19 | XMS_ITS | Clinical Summary ---
Author Organization [facility] Address [address] [place] [address] Care Team Providers Care Musical Therapist Name Role Phone Augustin Coronado MD Primary Care Provider [phone] Karen Marcial MD Unavailable [phone] Allergies No known active allergies Medications MedicationSigDispense [...] 12 hr tablet Indications:Coronary artery disease involving chemehuevi coronary artery of chemehuevi heart without angina pectorisTake 1 tablet (500 [...] 10 mg tablet Indications:Coronary artery disease involving chemehuevi coronary artery of chemehuevi heart without angina pectoris,Mixed hyperlipidemiaTake 1 tablet [...] mg EC tablet Indications:Coronary artery disease involving chemehuevi coronary artery of chemehuevi heart without angina pectorisTake 1 tablet (40 mg) by mouth before breakfast. Do not crush, chew, or split. 90 tablet /ctive irbesartan (Avapro) 300 mg tablet Indications:Multiple vessel coronary artery diseaseTake 1 tablet (300 mg) by mouth once daily as directed. 90 tablet 5Active Active Problems ProblemNoted DateDiagnosed DatePain in limb09/27/2025bnormal stress test 11/03/2024Other chest pain11/03/2024oronary artery yvcjoqn9011/03/2024cute frontal bmsaylpnl46nkle edemanxiety ervical disc yqcxxxwz01halazion hest pain at restOVID-19111/22/2023utaneous skin tagsepression with anxiety iabetes mellitus without vopdxcuohyrr00 Head xsqjoepdy54Healthy adultHypertension HypothyroidImpacted xaixcls1111/22/2023Inflamed seborrheic pmwfdqwci30Major depressive disorder, single episode, axrsnbhpelm03Neoplasm of uncertain behavior of skin of faceerforation of tympanic membrane Otitis ykybukh80ain of lumbar spine eripheral hwoeztq91haryngitis11/22/2023 11/22/2023Radial styloid pvytnrrpbqgyx00Right lower quadrant painShoulder impingement olygnbxg32Sprain of kneeoronary artery disease due to calcified coronary dbdpog7410/03/2023oronary artery disease due to lipid rich cfxaba3309/17/2023 Abnormal cardiovascular stress test06/ Assessment & Plan (05/24/2023 2:45 PM EDT): Orders for cardiac cath Reviewed stress test and echocardiogram results with patient and his Unstable gekqxn1405/24/2023 Assessment & Plan (05/24/2023 2:43 PM EDT): [...] CBC and BMP for renal function Mixed gwickefonwrzax98/30/2023 Assessment & Plan (05/24/2023 2:43 PM EDT): [...] PM EDT): Follow-up with PCP Encounters DateTypeDepartmentCare ErjjVysakzmtbcr25/02/8137Giudfr94/21/2025Orders Only [facility] [address] [place] [address] Trixie Sow MA Abnormal stress test (Primary Dx); Coronary artery disease, unspecified vessel or lesion type, unspecified whether angina present, unspecified whether chemehuevi or transplanted heart10/12/2025Orders Only [facility] [address] [place] [address] Nan Chopra MD 10/08/2025Telephone [address] [place] [address] Keysha Sommers MA 09/27/2025 3:30 PM ESTOffice Visit [address] [address] Thaddeus Negrete MD Coronary artery disease involving chemehuevi coronary artery of chemehuevi heart with other form of angina pectoris [...] file10/03/2023Sex and Gender InformationValueDate RecordedSex Assigned at RqypiUdey92/20/2023 12:06 PM EDTLegal XxkHebn7605/15/2023 9:58 AM EDT Gender KdnijlrlXvgr93/20/2023 12:06 PM EDTSexual OrientationHeterosexual or Zvyznjek37/20/2023 12:06 PM EDT Last Filed Vital Signs Vital SignReadingTime TakenCommentsBlood Iufzlkxm048/7509/27/2025 4:03 PM EST Ypfiu599609/27/2025 4:03 PM XWHYnatabxxzjl50.8 ??C (98.2 ??F)10/04/2023 7:40 AM ESTRespiratory Ylmv6102 2:30 PM ESTOxygen Xgrddskrla79%09/27/2025 4:03 PM ESTInhaled Oxygen Concentration--Knyxyk179 kg (350 lb)09/27/2025 4:03 PM EST Gbsnew469.8 cm (5' 10 )09/27/2025 4:03 PM ESTBody Mass Index50.22111/27/2024 4:03 PM EST Plan of Treatment DateTypeDepartmentCare Team (Latest Contact Info)Ooqzaezlmgm05/04/2025 1:30 PM ESTHospital Encounter [facility] [address] [place] [address] Thaddeus Negrete MD [address] [place] [address] Abnormal stress test; Coronary artery disease, unspecified vessel or lesion type, unspecified whether angina present, unspecified whether chemehuevi or transplanted heart10/28/2025 1:30 PM EST - 10/28/2025 2:30 PM ESTSurgery [facility] [address] [place] [address] Thaddeus Negrete MD [address] [place] [address] Coronary angiographyHealth MaintenanceDue DateLast DoneCommentsCT Colonography 1975 8066Iqlicmupbbo1975Colorectal Cancer Jxunvbdlb1975Diabetes: Hemoglobin A1C1975FIT-DNA1975FIT1975FOBT1975 Dsjtaxzynurtt1975Diabetes: Retinopathy Tdenvgldn48/26/1985Depression Oaposszjr45/26/1987Diabetes: Urine Protein Kfuiamjyv86/26/1994Hepatitis B Vaccines (1 of 3 - 19+ 3-dose series)1994Pneumococcal Vaccine: Pediatrics (0 to 5 Years) and At-Risk Patients (6 to 64 Years) (1 of 2 - PCV)1994 Zoster Vaccines (1 of 2)5COVID-19 Vaccine ( - season) 2025Influenza Vaccine (#1)2025dult Niybpxr98HIB VaccinesAged OutNo longer eligible based on patient's age to complete this topic HPV VaccinesAged OutNo longer eligible based on patient's [...] / LotStent,Synergy Xd Mr 2.5 X48mm - [id number] Implanted:Qty: 1 on 10/03/2023 [facility] [id number] / / [id number],Synergy Xd Mr 3.44b12ij - [id number] Implanted:Qty: 1 on 10/03/2023 by [facility] [id number] / / [id number],Synergy Michele,Michael 4.5x20m - [id number] Implanted:Qty: 1 on 06/03/2023 by [facility] [id number] / / [id number] Procedures Procedure NamePriorityDate/TimeAssociated DiagnosisCommentsLEXISCAN STRESS MYOCARDIAL PERFUSION TBUTUQFFchcvfu54/13/2025 9:29 AM ESTfrom Last 3 Months Results * Lexiscan Stress Myocardial Perfusion Imaging (10/07/2025 9:29 AM EST) Anatomical RegionLateralityModalityOther Narrative Authorizing ProviderResult TypeResult StatusHistorical Provider MDCV STRESS PROCEDURESFinal Result from Last 3 Months Insurance Advance Directives * Full Code (Latest Code Status on File) Date ActivatedDate UvhzskptynuHfjgsexh99/9/2023 11:39 AM10/04/2023 1:20 PM * Full Code Date ActivatedDate VgskyjstivwWnoiekbf12/9/2023 11:32 AM10/03/2023 11:39 AM Care Teams Team MemberRelationshipSpecialtyStart DateEnd Date Augustin Coronado MD [address] [facility] [address] [address] PCP - General05/24/23 Karen Marcial MD [address] [address] Zjilpwadsq49/10/23
--- OUTSIDE RECORDS SUMMARY | 2025-10-26 16:19 | XMS_ITS | Encounter Summary ---
Author Organization [facility] Address [address] [place] [address] Care Team Providers Care Sample Prep Technician Name Role Phone Augustin Coronado MD Primary Care Provider [phone] Karen Marcial MD Unavailable [phone] Encounter Details DateTypeDepartmentCare Team (Latest Contact Info)Rctebwwozsc80/21/2025Orders Only [facility] at [facility] [address] [place] [address] Juanjose, [place], [place] Abnormal stress test (Primary Dx); Coronary artery disease, unspecified vessel or lesion type, unspecified whether angina present, unspecified whether platinum or transplanted heart Social History Tobacco UseTypesPacks/DayYears UsedDateSmoking Tobacco: NeverSmokeless [...] you been afraid of your partner or ex-partner?No11/09/2023Emotionally AbusedNot on file10/03/2023hysically AbusedNot on file10/03/2023Sexually AbusedNot [...] file10/03/2023Sex and Gender InformationValueDate RecordedSex Assigned at IbnrfXqcd13/20/2023 12:06 PM EDTLegal MdyQtrg4205/15/2023 9:58 AM EDT Gender IrrqucbuEpvc54/20/2023 12:06 PM EDTSexual OrientationHeterosexual or Hhvflztf27/20/2023 12:06 PM EDTdocumented as of this encounter Plan of Treatment DateTypeDepartmentCare Team (Latest Contact Info)Scpbmsizihx59/04/2025 1:30 PM ESTHospital Encounter [facility] [address] [place] [address] Thaddeus Negrete MD [address] [facility] [place] [address] Abnormal stress test; Coronary artery disease, unspecified vessel or lesion type, unspecified whether angina present, unspecified whether platinum or transplanted heart10/28/2025 1:30 PM EST - 10/28/2025 2:30 PM ESTSurgery [facility] [address] [place] [address] Thaddeus Negrete MD [address] [facility] [address] [place] [address] Coronary angiographyNameTypePriorityAssociated DiagnosesOrder ScheduleCBC and differentialLabRoutine Abnormal stress test Coronary artery disease, unspecified vessel or lesion type, unspecified whether angina present, unspecified whether platinum or transplanted heart Expected: 10/15/2025 (Approximate), Expires: 10/15/2026omprehensive metabolic panelLabRoutine Abnormal stress test Coronary artery disease, unspecified vessel or lesion type, unspecified whether angina present, unspecified whether platinum or transplanted heart Expected: 10/15/2025 (Approximate), Expires: 10/15/2026documented as of this encounter Visit Diagnoses Diagnosis Abnormal stress test- Primary Other nonspecific abnormal cardiovascular system function study Coronary artery disease, unspecified vessel or lesion type, unspecified whether angina present, unspecified whether platinum or transplanted heart Abnormal stress test Other nonspecific abnormal cardiovascular system function study Coronary artery disease, unspecified vessel or lesion type, unspecified whether angina present, unspecified whether platinum or transplanted heart Abnormal stress test Other nonspecific abnormal cardiovascular system function study Coronary artery disease, unspecified vessel or lesion type, unspecified whether angina present, unspecified whether platinum or transplanted heart documented in this encounter Care Teams Team MemberRelationshipSpecialtyStart DateEnd Date Augustin Coronado MD [address] [facility] [place] [address] PCP - General05/24/23 Karen Marcial MD [address] [facility] [address] [place] [address] Jcbxzvzipv32/10/23documented as of this encounter
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
[2025-10-26 16:57] LABS: Hematocrit 44.2 % (42.0-54.0); Hemoglobin 15.0 g/dL (14.0-18.0); Immature Granulocytes Abs Auto 0.09 10^3/uL (0.00-0.03); Immature Granulocytes Pct Auto 0.8 % (0.0-0.5); Lymphocytes Absolute Auto 3.9 10^3/uL (1.2-3.8); Mean Corpuscular HGB Conc 33.9 g/dL (29.9-35.2); Mean Corpuscular Hemoglobin 32.1 pg (25.9-34.0); Mean Corpuscular Volume 94.6 fL (80.0-94.0); Platelet Count 238 10^3/uL (150-450); Red Blood Count 4.67 10^6/uL (4.70-6.10); White Blood Count 11.4 10^3/uL (4.0-11.0)
[2025-10-26 17:04] LABS: Alanine Aminotransferase 41 U/L (16-63); Albumin Globulin Ratio 0.9; Albumin Level 3.8 g/dL (3.4-5.0); Alkaline Phosphatase 91 U/L (46-116); Anion Gap 11.7; Aspartate Amino Transferase 24 U/L (15-37); Blood Urea Nitrogen 24.0 mg/dL (7.0-18.0); Calcium 8.8 mg/dL (8.5-10.1); Carbon Dioxide 28.6 mmol/L (21.0-32.0); Chloride 101 mmol/L (98-107); Estimated GFR (African America >60 (>=60 mL/min/1.73m^2); Estimated GFR (Non-African Ame 52 (>=60 mL/min/1.73m^2); Globulin 4.4 g/dL; Glucose 97 mg/dL (74-106); Potassium 4.3 mmol/L (3.5-5.1); Sodium 137 mmol/L (136-145); Total Protein 8.2 g/dL (6.4-8.2)
== END 2025-10-26 16:13 | disposition home or self-care (01) ==
PROVIDERS: PCP Family Medicine; Visit Provider Internal Medicine Interventional Cardiology
DX: R94.39 Abnormal result of other cardiovascular function study (principal); I25.10 Atherosclerotic heart disease of native coronary artery without angina pectoris
CPT/HCPCS: 36415; 80053; 85025

== ENCOUNTER 2025-11-24 09:24 | Outpatient (OUT) | payer OTHER, SELFPAY ==
--- OUTSIDE RECORDS SUMMARY | 2025-11-24 09:27 | XMS_ITS | Clinical Summary ---
Author Organization [facility] Address [address] [place] [address] Care Team Providers Care Flaker Operator Name Role Phone Augustin Coronado MD Primary Care Provider [phone] Karen Marcial MD Unavailable [phone] Allergies No known active allergies Medications MedicationSigDispense QuantityRefillsLast FilledStart DateEnd DateStatus levothyroxine (Synthroid, Levoxyl) 100 mcg tablet Take 100 mcg by mouth in the morning.02/22/2023ctive aspirin 81 mg EC tablet Take 81 mg by mouth in the morning.Active atorvastatin (Lipitor) 80 mg tablet Indications:Multiple vessel coronary artery diseaseTake 1 tablet (80 mg) by mouth in the morning. 30 tablet ctive Additional Information Patient taking differently:80 mg oralNightly, Reported on 10/28/2025 sildenafil (Viagra) 100 mg tablet 1 (one) time each day at the same time.Active ferrous sulfate 325 (65 Fe) MG tablet Take 325 mg by mouth 2 times daily.08/09/2024ctive tiZANidine (Zanaflex) 4 mg tablet Take 4 mg by mouth every 6 (six) hours if needed for muscle spasms.02/12/2024 Active ranolazine (Ranexa) 500 mg 12 hr tablet Indications:Coronary artery disease involving turtle mountain coronary artery of turtle mountain heart without angina pectorisTake 1 tablet (500 mg) by mouth two times daily. Do not crush, chew, or split. 180 tablet /502/ctive ticagrelor (Brilinta) 90 mg tablet Indications:Unstable angina (CMS/HCC)Take 1 tablet (90 mg) by mouth two times daily. 180 tablet /ctive furosemide (Lasix) 40 mg tablet Indications:Multiple vessel coronary artery diseaseTake 1 tablet (40 mg) by mouth in the morning. 90 tablet tive ezetimibe (Zetia) 10 mg tablet Indications:Coronary artery disease involving turtle mountain coronary artery of turtle mountain heart without angina pectoris,Mixed hyperlipidemiaTake 1 tablet (10 mg) by mouth in the evening. 90 tablet /ctive spironolactone (Aldactone) 25 mg tablet Indications:Benign hypertensive [...] mg EC tablet Indications:Coronary artery disease involving turtle mountain coronary artery of turtle mountain heart without angina pectorisTake 1 tablet (40 mg) by mouth before breakfast. Do not crush, chew, or split. 90 tablet /6Active irbesartan (Avapro) 300 mg tablet Indications:Multiple vessel coronary artery diseaseTake 1 tablet (300 mg) by mouth once daily as directed. 90 tablet 5Active carvedilol (Coreg) 6.25 mg tablet Indications:Coronary artery disease of turtle mountain artery of turtle mountain heart with stable angina pectorisTake 1 tablet (6.25 mg) by mouth with breakfast and with evening meal. 60 tablet 5Active nitroglycerin (Nitrostat) 0.4 mg SL tablet Indications:Coronary artery disease of turtle mountain artery of turtle mountain heart with stable angina pectorisPlace 1 tablet (0.4 mg) under the tongue every 5 (five) minutes if needed for chest pain. If symptoms not completely relieved after 2 doses call 911 and take 3rd dose 25 tablet /6Active cloNIDine (Catapres) 0.2 mg tablet Take 0.2 mg by mouth at bedtime./02/2025Discontinued(Therapy completed) nitroglycerin (Nitrostat) 0.[address] 0.4 mg under the tongue every 5 (five) minutes if needed for chest pain. 10/29/2025Discontinued carvedilol (Coreg) 12.5 mg tablet Indications:Multiple vessel coronary artery diseaseTAKE 1 TABLET BY MOUTH EVERY MORNING AND 1 & 1/2 TABLETS EVERY EVENING 270 tablet Discontinued(Stop Taking at Discharge) Active Problems ProblemNoted DateDiagnosed DateCAD (coronary artery disease)10/28/2025Pain in limb09/27/2025bnormal stress test11/03/2024Other chest pain11/03/2024oronary artery bpbrhdn9011/03/2024cute frontal zychpreuz11nkle edema nxietyervical disc jjjmdger40/29/2023 11/22/20230684Binvwdwgj53hest pain at rest COVID-191utaneous skin tagsepression with qodnndq21iabetes mellitus without rwcrykezfukh26/29/2023 11/22/2023Head fwpdhsnxh57Healthy adult Vjhutcvvzbus29HypothyroidImpacted cerumen Inflamed seborrheic wmeuwlpqb18Major depressive disorder, single episode, vvobtmbtsof53Neoplasm of uncertain behavior of skin of faceerforation of tympanic nxsigagq46Otitis teadbhr19ain of lumbar spineeripheral unqqlvf47haryngitis Radial styloid uxcpximqzkuku79Right lower quadrant painShoulder impingement nzfangqu01/29/2023 11/22/2023Sprain of kneeoronary artery disease due to calcified coronary uzxvtc1210/03/2023oronary artery disease due to lipid rich wzgnal8409/17/2023bnormal cardiovascular stress test05/24/2023 Assessment & Plan (05/24/2023 2:45 PM EDT): Orders for cardiac cath Reviewed stress test and echocardiogram results with patient and his Unstable sxjbsf1005/24/2023 Assessment & Plan (05/24/2023 2:43 PM EDT): [...] CBC and BMP for renal function Mixed lvbxweaibytfws89/30/2023 Assessment & Plan (05/24/2023 2:43 PM EDT): [...] PM EDT): Follow-up with PCP Encounters DateTypeDepartmentCare JhntKmuzkpereec64/04/2025 1:30 PM EST - 10/28/2025 2:30 PM ESTSurgery [facility] [address] [place] [address] Thaddeus Negrete MD Coronary qqgskvosxji35/04/2025 11:55 AM EST - 10/29/2025 12:30 PM ESTHospital Encounter [facility] [address] [facility] [place] [address] Thaddeus Negrete MD CKD (chronic kidney disease) stage 2, GFR 60-89 ml/min (Primary Dx); Abnormal stress test; Coronary artery disease, unspecified vessel or lesion type, unspecified whether angina present, unspecified whether turtle mountain or transplanted heart; Coronary artery disease of turtle mountain artery of turtle mountain heart with stable angina pectoris Discharge Disposition: Home or Self Care ()10/28/20257591Ejhvwt04/02/2025Travel 10/15/2025Orders [address] [address] JuanjoseTrixie MA Abnormal stress test (Primary Dx); Coronary artery disease, unspecified vessel or lesion type, unspecified whether angina present, unspecified whether turtle mountain or transplanted heart10/12/2025Orders [address] [id number] ProviderNan MD [facility] [address] [place] [address] [place] [address] Keysha Sommers MA 09/27/2025 3:[address] [facility] [address] [place] [address] Thaddeus Negrete MD Coronary artery disease involving turtle mountain coronary artery of turtle mountain heart with other form of angina pectoris [...] you been afraid of your partner or ex-partner?No10/29/2025Emotionally AbusedNot on file10/29/2025Physically Abused Not on file10/29/2025Sexually AbusedNot on file10/29/2025Overall Financial Resource Strain (CARDIA)AnswerDate RecordedHow hard is it for you to pay for the very basics like food, housing, medical care, and heating?Not hard at all 10/29/2025HC UtilitiesAnswerDate RecordedIn the past 12 months has the electric, gas, oil, or water company threatened to shut off services in your home?No10/29/2025TransportationAnswerDate RecordedIn the past 12 months, has lack of transportation kept you from medical appointments or from getting medications?No10/29/2025Lack of Transportation (Non-Medical)Not on file 10/29/2025Housing Stability Vital SignAnswerDate RecordedUnable to Pay for Housing in the Last YearNot on file10/29/2025Number of Times Moved in the Last YearNot on file10/29/2025t any time in the past 12 months, were you homeless or living in a penitentiary (including now)?No10/29/2025Hunger Vital SignAnswerDate RecordedWithin the past 12 months, you worried that your food would run out before you got the money to buymore.Never true10/29/2025Ran Out of Food in the Last YearNot on file10/29/2025Sex and Gender InformationValueDate RecordedSex Assigned at MrdxiUuyk23/20/2023 12:06 PM EDTLegal MayEnag0305/15/2023 9:58 AM EDT Gender CphueuopFafk27/20/2023 12:06 PM EDTSexual OrientationHeterosexual or Sjphaulb38/20/2023 12:06 PM EDT Last Filed Vital Signs Vital SignReadingTime TakenCommentsBlood Mkzjuzex955/6210/29/2025 7:55 AM EST Ulbsz348910/29/2025 7:55 AM SMEKysdtaxhtie92.1 ??C (97 ??F)10/29/2025 7:55 AM EST Respiratory Ftgo210412/30/2024 7:55 AM ESTOxygen Ymtjknpujk78%10/29/2025 7:55 AM ESTInhaled Oxygen Concentration--Rwuzeb715 kg (344 lb 3.2 oz)10/29/2025 6:31 AM LMDPnoeyn085.8 cm (5' 10 )10/28/2025 6:30 PM ESTBody Mass Index49.39112/29/2024 6:30 PM EST Plan of Treatment DateTypeDepartmentCare Team (Latest Contact Info)Igpvprjiyar17/31/2025 10:[address] [facility] [address] [place] [address] Thaddeus Negrete MD [address] [facility] [place] [address] Health MaintenanceDue DateLast DoneCommentsCT Npmuitwwzpft1975Colonoscopy 1975Colorectal Cancer Jrdfkjfxq1975Diabetes: Hemoglobin A1C 1975FIT-DNA1975FIT1975FOBT1975 3429Wlucoafyksdhz1975 Diabetes: Retinopathy Qyhahkqjn48/26/1985Depression Tmxicmwdp19/26/1987Diabetes: Urine Protein Dimmjqrhq00/26/1994Hepatitis B Vaccines (1 of 3 - 19+ 3-dose series)1994Pneumococcal Vaccine: Pediatrics (0 to 5 Years) and At-Risk Patients (6 to 64 Years) (1 of 2 - PCV)1994Zoster Vaccines (1 of 2) 2025OVID-19 Vaccine (1 - )07/26/2025Influenza Vaccine (#1) 2025dult Zdwgrql40HIB VaccinesAged OutNo longer eligible based on patient's [...] / LotStent,Synergy Xd Mr 2.5 X48mm - [id number] Implanted:Qty: 1 on 10/03/2023 by [facility] [id number]/15/2025 [id number] / / [id number],Synergy Xd Mr 3.77p33tb - [id number] Implanted:Qty: 1 on 10/03/2023 by [facility] [id number]/23/2025 [id number] / / [id number],Synergy Michele,Michael 4.5x20m - [id number] Implanted:Qty: 1 on 06/03/2023 by [facility]Kren [facility] [id number]/03/2023 [id number] / / [id number] Procedures Procedure NamePriorityDate/TimeAssociated DiagnosisCommentsRESPIRATORY ASSESS AND TREAT FJRLZGPHDqhwndj50/04/2025 5:43 PM ESTECG 12-ACHGOhsng98/04/2025 5:35 PM EST ACTIVATED CLOTTING JHNCRtmpkzr75/04/2025 4:59 PM EST ACTIVATED CLOTTING CMPOXrhtsif13/04/2025 4:32 PM EST ULTRASOUND - GTMKZMIAHiqhivo73/04/2025 3:59 PM EST Abnormal stress test Coronary artery disease, unspecified vessel or lesion type, unspecified whether angina present, unspecified whether turtle mountain or transplanted heart PERC CORONARY UOQTJRMPAEHSSbjefqn24/04/2025 3:59 PM EST Abnormal stress test Coronary artery disease, unspecified vessel or lesion type, unspecified whether angina present, unspecified whether turtle mountain or transplanted heart LEFT HEART ERXWTltcncj58/04/2025 3:59 PM EST Abnormal stress test Coronary artery disease, unspecified vessel or lesion type, unspecified whether angina present, unspecified whether turtle mountain or transplanted heart CORONARY VURIGVVJTBOAnrrreh05/04/2025 3:59 PM EST Abnormal stress test Coronary artery disease, unspecified vessel or lesion type, unspecified whether angina present, unspecified whether turtle mountain or transplanted heart ACTIVATED CLOTTING XKIHYasvjbb66/04/2025 3:57 PM EST ACTIVATED CLOTTING XKIKStwbgsy22/04/2025 3:23 PM EST ECG 12-KLJEWvhusah51/04/2025 12:39 PM EST LEXISCAN STRESS MYOCARDIAL PERFUSION XXJYLSZTnfazyp24/13/2025 9:29 AM ESTfrom Last 3 Months Results * ECG 12 lead (10/28/2025 5:35 PM EST) Only the most recent of2 resultswithin the time period is included. ComponentValueRef RangeTest MethodAnalysis TimePerformed AtPathologist Signature Ventricular Ncmo58EGUNO MUSEAtrial Hdeg16BKIFD MUSEPR Pwmcpnsd683msEN MUSEQRS ZDKSRPLD774eiDZ MUSEQT Vvudtryd195vaTL MUSEQTC CALCULATION(BAZETT)457msGE MUSEP Vsmv54rtduewbWI MUSER-Vond6ovuupxxOF MUSET Wave Slcs4zqbiuvuXM MUSESpecimen (Source)Anatomical Location / LateralityCollection Method / VolumeCollection TimeReceived Time10/28/2025 4:28 PM EST10/28/2025 8:58 PM EST Impressions GE MUSE - 10/28/2025 8:59 PM EST Normal sinus rhythm Intra-ventricular conduction delay Borderline ECG When compared with ECG of 28-Oct-2025 12:29, (unconfirmed) No significant change was found Confirmed by Michael Tilley ([id number]) on 10/28/2025 8:58:56 PM Narrative Procedure Note Michael Tilley MD - 10/28/2025 IMPRESSION: Normal sinus rhythm Intra-ventricular conduction delay Borderline ECG When compared with ECG of 28-Oct-2025 12:29, (unconfirmed) No significant change was found Confirmed by Michael Tilley (80) on 10/28/2025 8:58:56 PM Authorizing ProviderResult TypeResult StatusGeorcathy MURRELL ORDERABLES Final ResultPerforming OrganizationAddressCity/State/ZIP CodePhone Number GE MUSE * (ABNORMAL) Activated clotting time (10/28/2025 4:59 PM EST) Only the most recent of4 resultswithin the time period is included. ComponentValueRef RangeTest MethodAnalysis TimePerformed AtPathologist Signature Activated Clotting Waoj687(H)82 - 152 10/28/2025 5:34 PM [facility] ([place])Specimen (Source)Anatomical Location / LateralityCollection Method / VolumeCollection TimeReceived TimeBloodVenous blood specimen / Oqgdgpl6310/28/2025 4:59 PM EST10/28/2025 5:34 PM EST Narrative Authorizing ProviderResult TypeResult StatusGeorge Penelope MAZARIEGOS POINT OF CARE TEST DOCKED DEVICE UNSOLICITED RESULTSFinal ResultPerforming OrganizationAddress City/State/ZIP CodePhone Number [facility] ([place] [address] [place] [address] * CORONARY ANGIOGRAPHY, LEFT HEART CATH, PERC CORONARY INTERVENTION, ULTRASOUND - CORONARY (10/28/2025 3:59 PM EST)Anatomical RegionLateralityModalityOther Specimen (Source)Anatomical Location / LateralityCollection Method / Volume Collection TimeReceived Time Narrative 10/28/2025 4:18 PM EST PROCEDURE PHYSICIAN: Thaddeus Negrete MD . Indications: Ehsan Brumfield is a 50 y.o. male with history of coronary disease status post stenting of the circumflex and LAD in the past, status post balloon dilatation of in-stent restenosis of the LAD in October 2024. ??He was evaluated recently in cardiology clinic because of recurrent symptoms of angina on maximal medical therapy. ??A stress test showed ischemia in the mid and distal anterior wall. ??He was referred for cardiac catheterization Assistants: Cardiovascular Fellow Dr Nathaniel Bass. Procedure Performed: Bilateral selective coronary angiogram. Left heart catheterization. IVUS assessment of the left anterior descending coronary artery. Successful balloon angioplasty of 80% stenosis and under expansion of the stents in the proximal to mid left anterior descending coronary artery, with reduction of the stenosis to 0% by high pressure balloon dilatation using a 3.0 mm noncompliant balloon in the mid vessel and 3.5 mm noncompliant balloon in the ostial to proximal vessel at high pressures. Access into the left radial artery under ultrasound guidance. Methods: ??Procedure was explained to the patient with risks and benefits; he signed informed consent. ??he was brought to the cath lab technologist in a fasting state. The left wrist area was prepped and draped in usual fashion. Micropuncture technique was used for access in the radial artery. ??A 6-Guatemalan x 11 cm sheath was placed. ??Verapamil was given through the sheath, and heparin was administered intravenously. ?? The 6-Guatemalan JR4 diagnostic catheter was navigated across the aortic valve over a wire and used to perform left heart catheterization with measurement of pressures. Pullback across the aortic valve was performed with measurement of pressures. Bilateral selective coronary angiography was then performed using 6-Guatemalan JL4 diagnostic catheter for engagement of the left coronary artery and 6-Guatemalan JR4 diagnostic catheter for engagement of the right coronary artery. Catheters were removed. Heparin was administered intravenously and therapeutic ACT was confirmed during the rest of the procedure. A 6-Guatemalan XB 3.0 guiding catheter was advanced and used to engage the left coronary ostium. ??Note that other guides were used including XB 3.5, XB 4.0, JL 4.0 and JL 4.5 but were unable to engage the left main. A Mekitec wire was advanced into the distal LAD. ??Initially we attempted performing OCT assessment of the LAD however due to technical issues with the OCT machine this was not feasible. ??Therefore we switched to IVUS. A Healogica IVUS catheter was advanced and used to perform IVUS assessment of the left anterior descending coronary artery. Catheter was removed. Baseline STORMY flow was 3. A NC 3.0 x 15 mm noncompliant balloon was advanced and used to performed balloon angioplasty at the site of the mid LAD stenosis with inflations up to 26 Norma. The balloon was retracted. Angiography was performed. ?? Additional IVUS assessment was performed. ??We decided to proceed with further dilatation of the proximal LAD. ??A NC 3.5 x 15 mm noncompliant Emerge balloon was then advanced and used to perform high-pressure balloon angioplasty in the ostial to proximal LAD at up to 20 norma. IVUS assessment was performed again showing adequate expansion of the stents and adequate wall apposition. Angiography revealed excellent result with reduction of the stenosis to 0%, no evidence of dissection or perforation and STORMY 3 flow in the coronary artery and branches. The guiding catheter and wire were removed. The patient was loaded with ticagrelor 180 mg at the end of the procedure. Hemostasis was achieved by TR band in the radial artery. ??he tolerated the procedure well and was transferred back to the cardiovascular recovery area. Hemodynamic Data: ?? LV: 160/-1, 18 AO: 140/74 (99) Coronary angiography: This is a co-dominant circulation. Left Main: This arises from the left coronary cusp. ??It bifurcates into left anterior descending and circumflex vessels. ??This has mild luminal irregularities but no obstructive lesions. Left anterior descending: ?This has previously placed stents in the ostial, proximal and mid segments. ??The stents are patent with angiographic severe in-stent restenosis especially in the midsegment up to 80% angiographically. ??The apical LAD is of smaller caliber and has diffuse disease. ??IVUS assessment of the LAD showed that the stents are patent however they are where undersized in the ostial, proximal and mid segments and there is evidence of stent malapposition in several areas of the LAD. ??Those stents where treated with balloon angioplasty and expanded to 3.0 mm at high pressures in the mid segment and 3.5 mm at high pressures in the ostial to proximal segments. ??Final IVUS assessment showed adequate expansion of the stents with good apposition to the tracy of the LAD and no evidence of dissection. Circumflex: ?? This is a co-dominant vessel. ?It gives rise to a very large first obtuse marginal branch which has a previously placed stent in the mid segment. ??The stent is widely patent with no restenosis. ??The rest of the obtuse marginal branch and circumflex have mild disease. Right coronary artery: ?? This arises from the right coronary cusp. ??It is a co-dominant vessel. ?? It is a moderate caliber vessel. ??It has mild diffuse disease in the proximal to mid segments. ??Distally there is minimal luminal irregularities and the caliber of the vessel is small. Impression/Findings: Severe stenosis in the LAD proximal and mid segments related to mall apposition and underexpansion of previously placed stents, treated with high-pressure balloon dilatation to 3.0 mm in the mid segment and 3.5 mm in the ostial to proximal segments. Patent previously placed obtuse marginal branch stent. Mild disease in the left main and RCA. Mild elevation of left filling pressures. No aortic valve stenosis. Plan: Aspirin 81 mg daily for life. Dual antiplatelet therapy with Aspirin 81 mg daily for life and Ticagrelor 90 mg twice daily for 12 months. Statin therapy for life. Maximize antianginal therapy. Risk factor control. Follow up in Cardiology Clinic. Thaddeus Negrete MD Study Details Abnormal stress test [R94.39], Coronary artery disease involving turtle mountain coronary artery of turtle mountain heart with other form of angina pectoris [I25.118] Authorizing ProviderResult TypeResult StatusGeorge Moukarbel MDCV CARDIAC CATH PROCEDURESFinal Result * Lexiscan Stress Myocardial Perfusion Imaging (10/07/2025 9:29 AM EST) Anatomical RegionLateralityModalityOther Narrative Authorizing ProviderResult TypeResult StatusHistorical Provider MDCV STRESS PROCEDURESFinal Result from Last 3 Months Insurance Advance Directives * Full Code (Latest Code Status on File) Date ActivatedDate MnrzckuuuvvJjjnzosh92/4/2025 4:06 PM10/29/2025 2:30 PM * Full Code Date ActivatedDate BfkqpzqsacsBuonniyb56/9/2023 11:39 AM10/04/2023 1:20 PM * Full Code Date ActivatedDate YactrfwnwbvOkjergec67/9/2023 11:32 AM10/03/2023 11:39 AM Care Teams Team MemberRelationshipSpecialtyStart DateEnd Date Augustin Coronado MD [address] [place] [address] PCP - General05/24/23 Karen Marcial MD [address] [facility] [address] [place] [address] Zkehdemkql65/10/23
--- OUTSIDE RECORDS SUMMARY | 2025-11-24 09:27 | XMS_ITS | Clinical Summary ---
Author Organization [facility] Address [address], [address] [place] [address] Care Team Providers Care Administrative Support Coordinator Name Role Phone Augustin Coronado MD Primary [...] InformationValueDate RecordedSex Assigned at Not on fileLegal VtqOmqv9603/16/2021 11:46 AM EDTGender IdentityNot on fileSexual OrientationNot on file Last Filed Vital Signs Vital SignReadingTime TakenCommentsBlood Pressure--Pulse--Ghbusxvmfgf06.1 ??C (97 ??F)05/19/2021 3:01 PM EDTRespiratory Rate--Oxygen Saturation--Inhaled Oxygen Concentration--Vhcium889.2 kg (340 lb)05/19/2021 3:01 PM MMCPompyu488.3 cm (5' 9 )05/19/2021 3:01 PM EDTBody Mass Index50.21005/19/2021 3:01 PM EDT Plan of Treatment Not on file Insurance Care Teams Team MemberRelationshipSpecialtyStart DateEnd Augustin Coronado MD [address] [id number] PCP - GeneralFamily Medicine05/19/21
--- OUTSIDE RECORDS SUMMARY | 2025-11-24 09:27 | XMS_ITS | Patient Health Record ---
Author Organization [facility] in [place] Address [address] [place] [address] Care Team Providers Care Production Hardener Name Role Phone Tung Coronado Primary Care Provider Allergies No Known Allergies Results Component Value Reference Range Notes NM kailee perf SPECT rest str Reviewed date:10/11/2025 07:14:13 PM Interpretation: Performing Lab: Notes/Report: Source Facility: [place] [address] Nuclear Medicine Report Signed Patient: EHSAN BRUMFIELD MR#: [id number] : 1975 Acct:[id number] Age/Sex: 50 / M ADM Date: 10/07/25 Loc: CARD Attending Dr: BRAYDEN SHEARER Ordering Physician: BRAYDEN SHEARER Date of Service: 10/07/25 Procedure(s): NM kailee perf SPECT rest str Accession Number(s): [id number] cc: Augustin Coronado M.D.; BRAYDEN SHEARER Patient Name: EHSAN BRUMFIELD MR#: [id number] : 1975 Exam Date: 10/07/2025 Ordering Doctor: DR BRAYDEN SHEARER M.D. RADIOLOGY REPORT PROCEDURE: NM KAILEE PERF SPECT REST STR COMPARISON: None. INDICATIONS: CORONARY ARTERY DISEASE TECHNIQUE: Exam Description: Stress/Rest two day protocol gated SPECT Rest Imagin.0 mCi Tc-99m Cardiolite IV on 10/08/2025 Stress Imaging 24.8 mCi Tc-99m Cardiolite IV on 10/07/2025 Exercise Protocol: 0.4 mg Lexiscan given IV Heart Rate (bpm): Rest: 75 Max: 97 PMHR: 57 Blood Pressure: Rest: 144/88 Max: 146/90 Symptoms: Rest and peak stress ECG findings were pending and the exercise portion of the study was pending per attending physician [facility] . For more details please see separate cardiac stress test report. FINDINGS: QUALITY OF STUDY: Fair PERFUSION DEFECT: LOCATION: Mid and apical anterior segments SIZE: Medium SEVERITY: Moderate TYPE: Partial reversibility WALL MOTION: Normal LV SIZE:EDV 128 mL. TID / TCD: 1.1 LVEF: Calculated EF 73%. SUMMARY: Abnormal myocardial perfusion imaging study CONCLUSION: Abnormal myocardial perfusion stress images revealing evidence of the mid and apical ischemia Normal left ventricle systolic function, ejection fraction 73% No evidence of transient ischemic dilatation, TID 1.1 EKG portion of stress test is reported separately Dictated by: Pamela Mitchell MD on 10/11/2025 at 17:13 Approved by: Pamela Mitchell MD on 10/11/2025 at 17:19 Dictated By: Pamela Mitchell M.D. Signed By: 10/11/25 172 DD/ 18 TD/TT: Production Machinist: PROF Tucker(COMP METB) Reviewed date:10/26/2025 05:10:38 PM Interpretation: Performing Lab: Notes/Report: [facility] , Sodium 137 136-145 mmol/L Potassium4.33.5-5.1 mmol/LTevclcez55973-535 mmol/LCarbon Rlaxkvq94.621.0-32.0 mmol/LAnion Gap11.9Lysikhg0526-215 mg/dLBlood Urea Jkyyrcrs97.07.0-18.0 mg/dL Creatinine1.440.70-1.30 mg/dLEstimated GFR ( Gabi>60>=60 mL/min/1.73m 2Estimated GFR (Non- Ame52>=60 mL/min/1.73m 2BUN Creatinine Ratio16.7 Calcium8.88.5-10.1 mg/dLBilirubin Total0.60.2-1.0 mg/dLAspartate Amino Epqgiacqgbp8376-97 U/LAlanine Qudscxtpyyvzzvdd8872-62 U/LAlkaline Dbosnhhoefp14 46-116 U/LTotal Protein8.26.4-8.2 g/dLAlbumin Level3.83.4-5.0 g/dLGlobulin4.4 Albumin Globulin Ratio0.9Performing Lab:see noteML - [facility] LBCBC AUTO DIFF Reviewed date:10/26/2025 05:10:38 PM Interpretation: Performing Lab: Notes/Report: [facility] ,White Blood Count11.44.0-11.0 10 3/uLRed Blood Count4.674.70-6.10 10 6/uL Eebgnriibz17.014.0-18.0 g/lBIualpfeuxb11.242.0-54.0 %Mean Corpuscular Gboono81.6 80.0-94.0 fLMean Corpuscular Kdlypydnse81.125.9-34.0 pgMean Corpuscular HGB Conc 33.929.9-35.2 g/dLRed Cell Distribution Width13.211.0-15.0 %Platelet Ocuqr765 150-450 10 3/uLMean Platelet Xgdapu61.59.5-13.5 fLNeutrophils Percent Auto53.5 43.0-75.0 %Lymphocytes Percent Auto34.320.5-60.0 %Monocytes Percent Auto9.01.7- 12.0 %Eosinophils Percent Auto2.20.9-7.0 %Basophils Percent Auto0.20.2-2.0 % Immature Granulocytes Pct Auto0.80.0-0.5 %Neutrophils Absolute Auto6.11.4-6.5 10 3/uLLymphocytes Absolute Auto3.91.2-3.8 10 3/uLMonocytes Absolute Auto1.00.3-0.8 10 3/uLEosinophils Absolute Auto0.30.0-0.7 10 3/uLBasophils Absolute Auto0.00.0- 0.1 10 3/uLImmature Granulocytes Abs Auto0.090.00-0.03 10 3/uLPerforming Lab:see noteML - [facility] LB Reason For Referral No Information Medications Medication SIG (Take, Route, Frequency, Duration) Notes Start Date End Date Status Aspirin 81 MG 1 tablet Orally Once a day; Dura tion: 30 day(s) 3ActiveSpironolactone 25 MG1 tablet Orally once daily; Duration: 90 daysActivetiZANidine HCl 4 MG2 tablets Orally at bjbheak04/20/2024ActiveBlood Glucose Monitor System w/Deviceas directedActiveBrilinta 90 MG1 [...] alcohol in the p ast year? No Fjukav6HljdgdudctaklkQvpicnyg Problems Problem Type SNOMED Code ICD Code Onset Dates Problem Status W/U Status Risk Notes Problem Acute frontal sinusitis (5831748 8) Acute recurrent frontal sinusitis (J01.11) ActiveconfirmedProblemSprain of knee (99226724)Sprain of unspecified site of unspecified knee, initial encounter (S83.90XA)ActiveconfirmedProblemChest pain (70506296)Chest pain (R07.9)ActiveconfirmedProblemHypertension (70652152) Hypertension (I10)ActiveconfirmedProblemAnxiety (11083105)Anxiety (F41.9)Active confirmedProblemCoronary artery disease (43499099)Coronary artery disease (I25.10)ActiveconfirmedProblemHypothyroid (96083457)Hypothyroid (E03.9)Active confirmedProblemDepression (515570735)Depression (F32.9)ActiveconfirmedProblem Sleep apnea (74994260)Sleep apnea (G47.30)ActiveconfirmedProblemImpacted cerumen (17065224)Cerumen impaction (H61.20)ActiveconfirmedProblemPharyngitis (477106692)Pharyngitis (J02.9)ActiveconfirmedProblemWell adult (313160764)Well adult (Z00.00)ActiveconfirmedProblemPain in limb (84829206)Right hand pain (M79.641)ActiveconfirmedProblemRadial styloid tenosynovitis (04022214)De Quervain's tenosynovitis (M65.4)ActiveconfirmedProblemOtitis externa (3667535) Otitis externa (H60.90)ActiveconfirmedProblemCervical disc disorder (277235653) DDD (degenerative disc disease), cervical (M50.30)ActiveconfirmedProblemAnkle edema (81751566)Ankle edema (R60.0)ActiveconfirmedProblemRight lower quadrant pain (392334685)Abdominal pain, RLQ (R10.31)ActiveconfirmedProblemFacial contusion (S00.83XA)ActiveconfirmedProblemPerforation of tympanic membrane (92016276)Tympanic membrane perforation, left (H72.92)ActiveconfirmedProblem Shoulder impingement syndrome (810732188)Shoulder impingement syndrome (M75.40) ActiveconfirmedProblemChest pain at rest (7930188)Chest pain at rest (R07.9) ActiveconfirmedProblemChalazion (2224067)Chalazion (H00.19)Activeconfirmed ProblemPeripheral vertigo (06994922)Vertigo, peripheral (H81.399)Activeconfirmed ProblemType II diabetes mellitus without complication (799993268)Diabetes (E11.9)ActiveconfirmedProblemCOVID-19 (963593893)COVID-19 (U07.1)Activeconfirmed ProblemPain in lumbar spine (finding) (427719775)Lumbar spine pain (M54.50) Activeconfirmed Vital Signs Blood pressure diastolic 90 mm Hg 03/01/2025 Ipnzyb31 in05/14/2025lood pressure jincczjf741 mm Hg03/01/20257533Toqcxx810.0 lbs 03/01/2025BMI49.5 kg/m203/01/2025 Procedures Procedure Date Ordered Date Performed Result Body Sit e EAR IRRIGATION - performed 05/14/2025 05/14/2025 N/A Encounters Encounter Location Date Provider Diagnosis [facility] [address] [place] [address] 02/19/2025 Tung Coronado [address] [place] [address] 03/16/2025[facility] [place] [address] [place] [address]/[facility] [place] [address] [place] [address]/01/2025[place] Hypertension I10 ; Diabetes E11.9 and [facility] [place] [address] Tung Cueto adult Z00.00[facility] [place] [address]/20/2025Doug HoyBilateral impacted cerumen H61.23 Assessments Encounter Date Diagnosis (ICD Code) Assessment Notes Treatment Notes Treatment Clinical Notes Section Notes 11/27/2024 Hypertension (ICD-10 - I10) may needs u/s -function vszccs8111/27/2024Diabetes (ICD-10 - E11.9)03/01/2025Well adult (ICD-10 - Z00.00)05/14/2025ilateral impacted cerumen (ICD-10 - H61.23)ear wash unsuccessful patient will come back next week for another ear irrigation 5Coronary artery disease (ICD-10 - I25.10) Plan Of Treatment Pending Test Test Name Order Date Exercise Stress Nuclear Test 04/29/2023 CMP (COMPLETE METABOLIC PANEL) 4 HEMOGLOBIN A1C (GLYCO) 03/16/2024 LIPID PANEL (CHOL/TRIG/HDL/LDL) 03/16/20 24 CBC WITH DIFF (EXP 09/2025) 03/16/2024 PSA, PROSTATE-SPECIFIC ANTIGEN 4 Sleep study [...] Coverage End Date MMO [address] [facility] [place] [id number] Olivia Brumfield - patient is the insured [...] Cath with stent placementheart cath with stent sgueuesgb15/9/23Heart Cath11/24/eart Cath10/28/25
--- OUTSIDE RECORDS SUMMARY | 2025-11-24 09:27 | XMS_ITS | Clinical Summary ---
Author Organization [facility] Healthcare Address [address] [place] [address] Care Team Providers Care Finnish Rubber Name Role Phone Unavailable Primary Care Provider Unavailabl e Social History Tobacco UseTypesPacks/DayYears UsedDateSmoking Tobacco: Never AssessedSex and Gender InformationValueDate RecordedSex Assigned at BirthNot on fileLegal Sex Male02/06/2023 8:32 PM EDTGender IdentityNot on fileSexual OrientationNot on file Last Filed Vital Signs Vital SignReadingTime TakenCommentsBlood Judwttza345/53032 12:00 PM EDT Pulse--Temperature--Respiratory Rate--Oxygen Saturation--Inhaled Oxygen Concentration--Min[place]191 kg (361 lb)06/04/2022 12:00 PM UYYAvpjuj922.3 cm (5' 9 )06/04/2022 12:00 PM EDTBody Mass Index53.31006/04/2022 12:00 PM EDT Plan of Treatment Not on file Insurance
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
[2025-11-24 10:07] LABS: Anion Gap 11.6; Blood Urea Nitrogen 19.0 mg/dL (7.0-18.0); Calcium 8.6 mg/dL (8.5-10.1); Carbon Dioxide 26.5 mmol/L (21.0-32.0); Chloride 104 mmol/L (98-107); Estimated GFR (African America >60 (>=60 mL/min/1.73m^2); Estimated GFR (Non-African Ame >60 (>=60 mL/min/1.73m^2); Glucose 150 mg/dL (74-106); Potassium 4.1 mmol/L (3.5-5.1); Sodium 138 mmol/L (136-145)
== END 2025-11-24 09:25 | disposition home or self-care (01) ==
PROVIDERS: PCP Family Medicine; Visit Provider Physician Assistant Medical
DX: N18.2 Chronic kidney disease, stage 2 (mild) (principal)
CPT/HCPCS: 36415; 80048